=== PATIENT | female | born 1955 | race Caucasian/White ===

== ENCOUNTER → 2018-05-01 14:58 | Outpatient (CLI) | payer OTHER, SELFPAY ==
[2018-05-01 17:35] LABS: Absolute Lymphocyte Count 1.85 X10^3/ul (0.83-4.51); Absolute Neutrophil Count 4.6 X10^3/uL (2.0-7.7); Basophil# 0.02 X10^3/uL; Basophil% 0.3 % (0-1); Eosinophil# 0.14 X10^3/uL; Eosinophils% 1.9 % (0-5); Hematocrit 39.4 % (37-47); Hemoglobin 12.9 g/dl (12.0-15.0); Lymphocyte # 1.85 X10^3/ul (4.0); Lymphocyte % 24.8 % (19-41); Mean Corp Hgb Conc 32.7 g/gl (32-36); Mean Corpuscular Volume 88.5 fL (81-99); Mean Platelet Vol. 9.7 fl (6.2-12.0); Monocyte# 0.81 X10^3/uL; Monocyte% 10.9 % (0-10); Neutrophil # 4.62 X10^3/uL (2.7-7.7); Neutrophil % 61.8 % (47-70); Platelet Count 274 K/mm3 (150-450); RBC Distribution Width SD 48.2 fl (35.1-43.9); Red Blood Count 4.45 M/mm3 (4.2-5.4); White Blood Count 7.5 K/mm3 (4.4-11.0)
[2018-05-01 17:38] LABS: POSITIVE COUNT NO; POSITIVE DIFFERENTIAL NO; POSITIVE MORPHOLOGY NO
[2018-05-01 17:43] LABS: ALB/GLOB Ratio 0.7 RATIO (0.9-2.4); AST(SGOT) 14 U/L (15-37); Alanine Aminotransfer ALT/SGPT 22 U/L (13-56); Albumin, Serum 3.2 g/dL (3.2-5.0); Alkaline Phosphatase 110 U/L (45-117); Anion Gap 9 (5-15); BUN 18 mg/dL (7-18); BUN/Creat Ratio 17.5 RATIO (10-20); Calcium,Total 8.6 mg/dL (8.5-10.1); Chloride 105 mmol/L (98-107); Creatinine, Serum 1.03 mg/dL (0.55-1.02); EST Glomerular Filtration Rate 57 mL/min (>60); Est Glom Filt Rate - Afr Amer 69 mL/min (>60); Globulin 4.3 g/dL (2.2-4.2); Glucose 101 mg/dL (74-106); Potassium 3.6 mmol/L (3.5-5.1); Protein, Total 7.5 g/dL (6.4-8.2); Rheumatoid Factor < 10.0 IU/mL (<15); Sodium Level 142 mmol/L (136-145)
[2018-05-01 17:55] LABS: Erythrocyte Sedimentation Rate 65 mm/hr (0-30)
[2018-05-05 20:06] LABS: QNTFERON TB Mitogen Value > 10.00 IU/mL (.); QNTFERON TB Nil Value 0.06 IU/mL (.); QNTFERON TB1+ Ag Value 0.07 IU/mL (.); QNTFERON TB2+ Ag Value 0.09 IU/mL (.)
[2018-05-06 10:38] LABS: CCP IgG Antibodies 17 units (0-19); HEPATITIS B SURFACE AG Negative (Negative); Hep B Surface Antibodies Non Reactive (.); Hep C Antibodies <0.1 s/co ratio (0.0-0.9); QNTIFERON TB Positive Criteria Negative (Negative)
== END ==
PROVIDERS: Family Provider Internal Medicine Infectious Disease; PCP Internal Medicine Infectious Disease; Referring Provider Internal Medicine Rheumatology; Visit Provider Internal Medicine Rheumatology
DX: M05.79 Rheumatoid arthritis with rheumatoid factor of multiple sites without organ or systems involvement (principal); M79.7 Fibromyalgia; M18.11 Unilateral primary osteoarthritis of first carpometacarpal joint, right hand; M51.86 Other intervertebral disc disorders, lumbar region; M15.9 Polyosteoarthritis, unspecified
CPT/HCPCS: 36415; 80053; 85025; 85652; 86140; 86200; 86431; 86480; 86706; 86803; 87340

== ENCOUNTER 2024-08-26 08:42 | Emergency (ER) | payer OTHER, SELFPAY ==
[2024-08-26] VITALS (7 sets, daily range): BP systolic 141–170; BP diastolic 71–89; PULSE 72–81; RESP 18; TEMP 36.6–36.8; O2SAT 95–100; BMI 43.6
--- NOTE | 2024-08-26 09:06 | ED.VIS.GI ---
HPI HPI - GI History of Present Illness Chief Complaint: Abd Pain Informant: patient and spouse/S.O. Narrative Narrative: Increasing rectal bleed since 8 PM yesterday reports clots. She has had a total fibroblast time prior to arrival. She is on Eliquis reported had pulmonary embolism January 2023. Denies any cardiac dysrhythmia as denies other previous blood clots. Reports she has been having left lower quadrant abdominal pain since Friday resolved on Friday 2 days ago however blood in stools started yesterday. Her last dose of Eliquis was yesterday at noon. She forgot her morning dose and did not take her nighttime dose. None taken this morning. She has had multiple diverticulitis bouts in the past last time was earlier this year. She states she does not tolerate Augmentin. No fevers or chills. No urinary symptoms. History of cholecystectomy and oophorectomy in the past. Reports feels like her diverticulitis. Last flare earlier this year however did not have blood in her stools. Additional past med history minimal ambulation more so uses a wheelchair as she has had back injury in 2008. There were no fractures from the incident. Prior similar symptoms: Yes PFSH PFSH Medical History Ureterolithiasis Acute saddle pulmonary embolism Diverticulitis Neuropathy Substernal chest pain Mass of left lower extremity Hypertension Type 2 diabetes mellitus Home Medications ?Medication ?Instructions ?Recorded ?Last Taken ?Type apixaban 5 mg tablet (Eliquis) 5 mg PO BID 06/30/24 08/25/24 History furosemide 20 mg tablet 20 mg PO DAILY 07/07/24 08/25/24 History glipizide 5 mg tablet 5 mg PO DAILY 07/07/24 08/26/24 History cefdinir 300 mg capsule 300 mg PO Q12H #14 caps 08/26/24 Unknown Rx losartan 50 mg tablet 50 mg PO DAILY 08/26/24 08/26/24 History metronidazole 500 mg tablet 500 mg PO TID #20 tabs 08/26/24 Unknown Rx Allergy/AdvReac Type Severity Reaction Status Date / Time NOE Inhibitors AdvReac Other Verified 08/26/24 08:44 Beta-Adrenergic Agents AdvReac Other Verified 08/26/24 08:44 Family History Father Heart disease Hx of CABG Surgical History History of spinal fusion History of arthroscopic knee surgery History of shoulder surgery H/O unilateral oophorectomy History of carpal tunnel surgery History of cholecystectomy Social History Smoking Status: Never smoker alcohol intake: never substance use type: does not use caffeine: Yes ROS ROS ED Constitutional Constitutional ED: Denies chills, fever(s) or sweats ENT ENT ED: Denies sore throat Cardiovascular Cardiovascular: Denies chest pain, leg edema, palpitations or racing heartbeat Respiratory/Chest Respiratory/Chest: Denies cough, dyspnea or dyspnea on exertion Gastrointestinal Gastrointestinal: Reports abdominal pain and other Details: bright red blood per rectum ; Denies diarrhea, nausea or vomiting Genitourinary Genitourinary ED: Denies dysuria, hematuria or urinary frequency Musculoskeletal Musculoskeletal: Denies back pain, extremity pain or neck pain Integumentary Denies rash or wounds Neurologic Neurologic: Denies headache(s), paresthesias or weakness EXAM Physical Exam Const Vital Signs: 08/26/24 08:43 08/26/24 10:57 08/26/24 11:03 Temperature 97.8 F 98.1 F Temperature Source Oral Pulse Rate 81 72 Respiratory Rate 18 18 Blood Pressure 151/89 H 141/84 H 141/84 H Blood Pressure Mean 109 103 103 Pulse Ox 99 100 Oxygen Delivery Method Room Air 08/26/24 11:06 08/26/24 12:00 08/26/24 12:04 Temperature 98.1 F 98.2 F Temperature Source Oral Oral Pulse Rate 72 72 74 Respiratory Rate 18 18 18 Blood Pressure 141/84 H 170/81 H 170/81 H Blood Pressure Mean 103 110 110 Pulse Ox 100 95 96 Oxygen Delivery Method Room Air Room Air 08/26/24 13:00 Temperature 98 F Temperature Source Pulse Rate 78 Respiratory Rate 18 Blood Pressure 154/71 H Blood Pressure Mean 98 Pulse Ox 99 Oxygen Delivery Method Positive well nourished and well developed General Appearance ED: well developed and NAD HEENT Reports moist mucous membranes normocephalic and atraumatic Eyes General Eye ED: Yes normal appearance of both eyes; Negative for pale conjunctiva Neck full ROM Chest Wall Chest: Negative for tenderness Resp normal respiratory effort and normal air movement Effort and Inspection: symmetric chest movement; Negative for respiratory distress Cardio regular rate, regular rhythm and no murmurs Peripheral Pulses: pulses 2+ throughout GI normal to inspection, nondistended, normoactive bowel sounds GI Narrative: Left lower quadrant tenderness no guarding. No rebound. Palpation: Negative for guarding or rebound tenderness present Extremity normal to inspection General Extremety ED: Negative for edema or tenderness General Extremity: Negative for edema Neuro oriented x3 and no sensory deficits noted Sensorium / Orientation: awake and alert Skin no rashes or lesions noted and no wounds MDM MDM MDM Narrative Medical decision making narrative: Interventions / MDM: Differential diagnosis: Acute diverticulitis, rectal bleeding, chronic anticoagulant, history of pulmonary embolism Diagnosis considered but do not suspect: Complicated diverticulitis however CT without complications. My EKG interpretation: N/A Imaging independently reviewed and interpreted by myself: CT abdomen pelvis IV contrast: Mild diverticulitis left lower quadrant. No abscess no perforation. External documents reviewed: N/A Test considered but not ordered:N/A ED course: Rectal bleeding on Eliquis. Left lower quadrant abdominal pain started Friday resolving however does have tenderness on my exam. History of diverticulitis. IV established for labs she declines any pain medicines. CT abdomen pelvis for further evaluation. IV fluids started. 0940: Hemoglobin 12.1. White count 9.4. Creatinine 1.12. Potassium 3.1. 1030: CT scan with mild uncomplicated diverticulitis. She does not tolerate Augmentin, IV Rocephin and Flagyl ordered. No additional bleeding since prior to arrival. Patient's Collbran score is 15 on the Eliquis. I will speak with hospitalist service for evaluation. Further discussion with her pulmonary embolism event January 2023, this was an unprovoked event per patient and spouse. It was a saddle embolism from evaluation of records. She has been on treatment for 18 months now. Discussed the possibility of not needing anticoagulant as she has been fully treated. This will be relayed to hospitalist service. I did discuss with Dr. Ruiz who did evaluate the patient in the ED and spoke with me. We discussed with her immobility likely led to her pulmonary embolism so she is higher risk specially with her saddle embolism. She would likely need continued long-term anticoagulants. She has not had any additional rectal bleeding. Evaluated patient. Plan of care is to recheck her H&H with expected to be lower however if not significant we will plan to hold her Eliquis for 96 hours. 1220: Repeat H&H 11 from 12 there has been no additional rectal bleeding. Diverticulitis without requiring pain control antibiotics were given. Vitals remained stable. Will discharge patient home with general surgery follow-up with recurrent diverticulitis. Will refer her to hematology for discussion if she needs to continue her anticoagulants. Discussed strict return precautions with the patient. All questions were answered. Re-evaluation: stable Disposition discussed with patient/family/significant other: Patient and spouse Case discussed with consulting clinician: Hospitalist This note was generated with [employer] dictation software. It may contain incorrect words, spelling, and punctuation that were not noted in checking the note before signing. Lab Data Attestation: I reviewed the patient's lab results. Labs: Laboratory Results - last 24 hr 08/26/24 08/26/24 08:53 11:10 WBC 9.4 RBC 4.39 Hgb 12.1 11.0 L Hct 37.2 33.1 L MCV 84.7 MCH 27.6 MCHC 32.5 RDW Std Deviation 42.3 RDW Coeff of Evelyn 13.8 Plt Count 310 MPV 10.6 Immature Gran % (Auto) 0.500 Neut % (Auto) 58.3 Lymph % (Auto) 26.9 [place] % (Auto) 10.0 Eos % (Auto) 3.9 Baso % (Auto) 0.4 Absolute Neuts (auto) 5.5 Absolute Lymphs (auto) 2.53 Nucleated RBC % 0 PT 16.4 H INR 1.3 APTT 30.0 Sodium 139 Potassium 3.1 L Chloride 101 Carbon Dioxide 23.0 Anion Gap 15 BUN 22 H Creatinine 1.12 Estim Creat Clear Calc 55.36 Est GFR (MDRD) Non-Af 53 L BUN/Creatinine Ratio 19.9 Glucose 109 H Calcium 9.4 Blood Type A POSITIVE Antibody Screen NEGATIVE Radiography Diagnostic Testing: Clinical Impression(s) from Imaging Studies Abdomen/Pelvis CT 08/26/24 09:45 IMPRESSION: Fatty infiltration of the liver. Status post cholecystectomy. Sigmoid diverticulosis and findings suggestive of mild diverticulitis. No fluid collection is seen. Reading Location: [id number] Discharge Plan Triage Chief Complaint: Abd Pain Other Complaint: GI Bleed ED Provider: Scot Raygoza Dx/Rx/DC Orders Clinical Impression: Bright red rectal bleeding, Chronic anticoagulation, Acute diverticulitis, Hx of pulmonary embolus Instructions: Diverticulitis Dc, ED Lower GI Bleeding (Stable) Prescriptions: New metronidazole 500 mg tablet 500 mg PO TID Qty: 20 0RF cefdinir 300 mg capsule 300 mg PO Q12H Qty: 14 0RF No Action Eliquis 5 mg tablet 5 mg PO BID furosemide 20 mg tablet 20 mg PO DAILY glipizide 5 mg tablet 5 mg PO DAILY losartan 50 mg tablet 50 mg PO DAILY Primary Care Provider: Ragini Nascimento Referrals: Alem Horne MD [Med Staff - Active Staff] - 1-2 Weeks Chata Feliz MD [Med Staff - Active Staff] - 1-2 Weeks Ragini Nascimento, [facility] [Primary Care Provider] - 1-2 Weeks Activity Restrictions/Additional Instructions: Your CT scan mild diverticulitis. Your hemoglobin 12.1 to 11. Discussed with hospital team. Plan of care is to hold your Eliquis for the next 4 days. Take and finish your antibiotics. Can restart your Eliquis after 4 days if your bleeding resolved. If you have increasing bleeding increasing pain or fevers, return to the ED for reevaluation. Follow-up with general surgery for your recurrent diverticulitis. Follow-up with heme/oncology to discuss your previous PE, immobilization if you should be continuing your long-term anticoagulant. Print Language: Maltese Disposition Disposition: Home, Self Care Discharge Date/Time: 08/26/24 13:02
[2024-08-26 09:12] LABS: Absolute Lymphocyte Count 2.53 X10^3/uL (0.83-4.51); Absolute Neutrophil Count 5.5 X10^3/uL (2.0-7.7); Basophil# 0.04 X10^3/uL; Basophil% 0.4 % (0-1); Eosinophil# 0.37 X10^3/uL; Eosinophils% 3.9 % (0-5); Hematocrit 37.2 % (37-47); Hemoglobin 12.1 g/dL (12.0-15.0); Lymphocyte # 2.53 X10^3/ul (0.83-4.51); Lymphocyte % 26.9 % (19-41); Mean Corp Hgb Conc 32.5 g/dL (32-36); Mean Corpuscular Hgb 27.6 pg (27.0-32.0); Mean Corpuscular Volume 84.7 fL (81-99); Mean Platelet Vol. 10.6 fl (6.2-12.0); Monocyte# 0.94 X10^3/uL; NRBC Flagged by Analyzer 0 % (0-5); Neutrophil # 5.49 X10^3/uL (2.7-7.7); Neutrophil % 58.3 % (47-70); Platelet Count 310 K/mm3 (150-450); RBC Distribution Width CV 13.8 % (11.6-14.6); RBC Distribution Width SD 42.3 fl (35.1-43.9); Red Blood Count 4.39 M/mm3 (4.2-5.4); White Blood Count 9.4 K/mm3 (4.4-11.0)
[2024-08-26] MEDS: 0.9% Normal Saline (1000mL) 1,000 ML 125 ML IV (09:12)
[2024-08-26 09:20] LABS: International Normalized Ratio 1.3; Prothrombin Time (Protime)PT. 16.4 SECONDS (11.7-14.9)
[2024-08-26 09:35] LABS: Anion Gap 15 (5-15); BUN 22 mg/dL (4-19); BUN/Creat Ratio 19.9 RATIO (10-20); Calcium,Total 9.4 mg/dL (7.6-11.0); Chloride 101 mmol/L (98-108); Creatinine, Serum 1.12 mg/dL (0.70-1.20); EST Glomerular Filtration Rate 53 (>60); Estimated Creatinine Clearance 55.36 ml/min (50-250); Glucose 109 mg/dL (70-99); Potassium 3.1 mmol/L (3.3-5.1); Sodium Level 139 mmol/L (133-145)
--- NOTE | 2024-08-26 09:45 | CT_ITS ---
PROCEDURE: ABDOMEN/PELVIS W IV CONT ONLY 08/26/2024 REASON FOR EXAM: LLQ PAIN, RECTAL BLEEDING TECHNIQUE: ABDOMEN/PELVIS W IV CONT ONLY Coronal and Sagittal reconstruction series were provided. CONTRAST: Isovue-300 VOLUME: 100 mL One or more dose reduction techniques were used (e.g., Automated exposure control, adjustment of the mA and/or kV according to patient size, use of iterative reconstruction technique. RADIATION DOSE SUMMARY: CTDlvol: 12.6 mGy DLP: 1352.08 mGycm COMPARISON: None FINDINGS: Lung bases: Lung bases are clear. Coronary artery calcification. Liver: Diffuse fatty infiltration. Gallbladder: Surgically absent. Spleen: Normal size. Pancreas: Normal size without evidence of mass surrounding inflammation or ductal dilation. Adrenals: Unremarkable Kidneys: Normal renal sizes. No hydronephrosis. Bladder: Unremarkable Reproductive Organs: Unremarkable Bowel: Colonic diverticulosis with mild inflammatory changes suggestive of possible early diverticulitis. Appendix: The appendix is not identified. There is no inflammatory process identified in the right lower quadrant to suggest appendicitis. Lymph nodes: No suspicious lymph node enlargement. Vasculature: Mild diffuse atherosclerotic calcifications are noted. Unremarkable Bones: Degenerative changes of the spine. Prior lumbar fusion. CT/Abdomen/Pelvis W IV Cont ONLY IMPRESSION: Fatty infiltration of the liver. Status post cholecystectomy. Sigmoid diverticulosis and findings suggestive of mild diverticulitis. No flui d collection is seen. Reading Location: [id number]
[2024-08-26] MEDS: Ceftriaxone 1 GM/50 ML BAG IV (10:55)
[2024-08-26 11:25] LABS: Hematocrit 33.1 % (37-47)
[2024-08-26] MEDS: metroNIDAZOLE 500 MG/100 ML BAG 100 MG IV (11:58)
[2024-08-26] MEDS: Potassium Chloride Oral Tablet 20 MEQ 40 MEQ PO (11:59)
--- NOTE | 2024-08-26 13:34 | PCM.CONS.GEN ---
Assessment & Plan Assessment/Plan (1) Acute diverticulitis: PLAN: Plan GI bleed secondary to diverticulosis and being on apixaban. Hemoglobin did drop but she is otherwise stable not having further bleeding. I feel is reasonable for the patient to be discharged home. I did discuss with the patient and her that this could happen with her not even be on anticoagulation but certainly anticoagulation made it worse. I feel it is reasonable for her to be restarted on anticoagulation but would wait 4 days before resuming that. Discussed in the future if she does have recurrent bleeding then there may need to be consideration about discontinuing the anticoagulation altogether and consider for an IVC filter. They both expressed understanding. Diverticulitis: Acute. Recommend continued antibiotics. History of saddle pulmonary embolism: Given that she had a large clot causing a saddle pulmonary embolism I do agree with lifelong anticoagulation. Though I do recommend also holding off for 96 hours after this event before resuming. HPI Consult Data Date of Consult: 08/26/24 HPI Narrative Reason for Consultation: Consult requested by Dr. Raygoza for GI bleed HPI Narrative: TANNER CUELLO, is a 69 F who presents with acute onset of gastrointestinal bleeding. Patient was passing blood and clots at home. By time she arrived here she had no further bleeding. She also had abdominal pain. Presented to the emergency room and was noted to have sigmoid diverticulosis and mild diverticulitis. Patient does take apixaban for history of saddle pulmonary embolism. Patient is wheelchair-bound and due to prior injury but does able to pivot and go short distances but primarily is wheelchair-bound. Has been on Eliquis for about 18 months. FOR[facility]LY [facility], [facility] Medical History Ureterolithiasis Acute saddle pulmonary embolism Diverticulitis Neuropathy Substernal chest pain Mass of left lower extremity Hypertension Type 2 diabetes mellitus Home Medications ?Medication ?Instructions ?Recorded ?Last Taken ?Type apixaban 5 mg tablet (Eliquis) 5 mg PO BID 06/30/24 08/25/24 History furosemide 20 mg tablet 20 mg PO DAILY 07/07/24 08/25/24 History glipizide 5 mg tablet 5 mg PO DAILY 07/07/24 08/26/24 History cefdinir 300 mg capsule 300 mg PO Q12H #14 caps 08/26/24 Unknown Rx losartan 50 mg tablet 50 mg PO DAILY 08/26/24 08/26/24 History metronidazole 500 mg tablet 500 mg PO TID #20 tabs 08/26/24 Unknown Rx Allergy/AdvReac Type Severity Reaction Status Date / Time NOE Inhibitors AdvReac Other Verified 08/26/24 08:44 Beta-Adrenergic Agents AdvReac Other Verified 08/26/24 08:44 Family History Father Heart disease Hx of CABG Surgical History History of spinal fusion History of arthroscopic knee surgery History of shoulder surgery H/O unilateral oophorectomy History of carpal tunnel surgery History of cholecystectomy Social History Smoking Status: Never smoker alcohol intake: never substance use type: does not use caffeine: Yes ROS ROS Narrative All review of systems were negative except as mentioned above in the history of present illness and the other review of systems. Physical Exam Const alert and no apparent distress Resp normal respiratory effort, no retractions, no use of accessory muscles and clear to auscultation bilaterally Cardio regular rate, regular rhythm, S1 normal heart sound and S2 normal heart sound GI normal to inspection, nondistended, normoactive bowel sounds, soft to palpation, non-tender and non-distended Extremity normal to inspection and full ROM Neuro Sensorium / Orientation: awake Psych affect normal Lab / Micro Data 08/26/24 11:10 08/26/24 08:53 Labs: Laboratory Results - last 24 hr 08/26/24 08:53: WBC 9.4, RBC 4.39, Hgb 12.1, Hct 37.2, MCV 84.7, MCH 27.6, MCHC 32.5, RDW Std Deviation 42.3, RDW Coeff of Evelyn 13.8, Plt Count 310, MPV 10.6, Immature Gran % (Auto) 0.500, Neut % (Auto) 58.3, Lymph % (Auto) 26.9, [place] % (Auto) 10.0, Eos % (Auto) 3.9, Baso % (Auto) 0.4, Absolute Neuts (auto) 5.5, Absolute Lymphs (auto) 2.53, Nucleated RBC % 0, PT 16.4 H, INR 1.3, APTT 30.0, Sodium 139, Potassium 3.1 L, Chloride 101, Carbon Dioxide 23.0, Anion Gap 15, BUN 22 H, Creatinine 1.12, Estim Creat Clear Calc 55.36, Est GFR (MDRD) Non-Af 53 L, BUN/Creatinine Ratio 19.9, Glucose 109 H, Calcium 9.4, Blood Type A POSITIVE, Antibody Screen NEGATIVE 08/26/24 11:10: Hgb 11.0 L, Hct 33.1 L Imaging Radiology Impression Abdomen/Pelvis CT 08/26/24 09:45 IMPRESSION: Fatty infiltration of the liver. Status post cholecystectomy. Sigmoid diverticulosis and findings suggestive of mild diverticulitis. No fluid collection is seen. Reading Location: [id number] Charges/Coding Visit Charges Office Visits / Consults: 12650 OV L3 New 30min
--- OUTSIDE RECORDS SUMMARY | 2024-08-26 19:50 | XMS RPT_ITS | CCD ---
Author Organization [facility] Care Team Providers Care Director Of National Sales Name Role Phone Alexy Hammondsricci Snyder Unavailable Unavailable KIANA GRIFFITH Primary Care Unavailable BUCK VEE Admitting Unavailable PADMINI PARSONS Attending Unavailable Clarissa SAAVEDRA MD Unavailable [phone] AICHA GILLIS Unavailable [place] CUSTODY OFFICER, Saige Unavailable Unavailable Unavailable Unavailable LICHA WYMAN RN Unavailable Unavailable Christopher REECE, Doreen Unavailable Unavailable Danielle Garcia LPN Unavailable Unavailable ADENIKE MCGUIRE MD Unavailable ADENIKE MCGUIRE MD Unavailable AICHA GILLIS Unavailable Unav ailable DUMANDAN, ALEIDA Unavailable Unavailable Mary Peña Unavailable Unavailable WILL DEY DO Attending Unavailable WILL DEY DO Primary Care Unavailable WILL DEY DO Admitting Unavailable ADENIKE MCGUIRE MD Attending Unavailable ADENIKE MCGUIRE MD Consulting Unavailable ADENIKE MCGUIRE MD Primary Care Unavailable ADENIKE MCGUIRE MD Admitting Unavailable PROVIDER, UNKNOWN Consulting Unavailable PROVIDER, UNKNOWN Consulting Unavailable ADENIKE MCGUIRE MD Attending Unavailable ADENIKE MCGUIRE MD Primary Care Unavailable ADENIKE MCGUIRE MD Admitting Unavailable ADENIKE MCGUIRE MD Attending Unavailable ADENIKE MCGUIRE MD Primary Care Unavailable ADENIKE MCGUIRE MD Admitting Unavailable ADENIKE MCGUIRE MD Attending Unavailable ADENIKE MCGUIRE MD Primary Care Unavailable ADENIKE MCGUIRE MD Admitting Unavailable ADENIKE MCGUIRE MD Referring Unavailable ADENIKE MCGUIRE MD Consulting Unavailable WILL DEY DO Admitting Unavailable WILL DEY DO Attending Unavailable WILL DEY DO Primary Care Unavailable PROVIDER, UNKNOWN Consulting Unavailable PROVIDER, UNKNOWN Consulting Unavailable RAGINI WILCOX Unavailable [phone] Ramiro Dave Attending Unavailable Laron Mora Referring Unavailable Laron Mora Primary Care Unavailable Abby BLUNT, Dr. Larry Primary Care Provider Dr. Laron Mora MD Referring Provider Dr. Ramiro Dave MD Attending Provider Pily CLOTH DESIZING RANGE OPERATOR CHIEF-CRagini Primary Care Provider Dr. Scot Raygoza DO Emergency Provider [phone] Allergies Allergy Classification Reported Allergen(s) Allergy Type Date of Onset Reaction(s) Facility (20 sources) Adrenergic Beta-Antagonist s; Translations: [BETA-BLOCKERS (BETA-ADRENERGI C BLOCKING AGTS)] Propensity to adverse reactions to drug (disorder) 3 Chest pain, Dizziness, Shortness of breath [facility] Repository (20 sources) Angiotensin Converting Enzyme (Noe) Inhibitors; Translations: [NOE INHIBITORS] Propensity to adverse reactions to drug (disorder) 3 Cough, Other [facility] Repository Comment on above: cough (1 source) Metoprolol Drug Allergy [facility] Repository (1 source) Beta-Adrenergic Agents Drug allergy (disorder) [address] [facility] Repository (1 source) Adrenergic Beta-Agonists Propensity to adverse reactions 5 [facility] Comment on above: chest pain, dizzines s, shortness of breath Medications Current Medications Medication Drug Class(es) Dates Sig (Normalized) Sig (Original) apixaban 5 mg oral tablet (20 sources) Factor Xa Inhibitor Start: 02-23-2024 take 1 tablet by mouth twice daily Apixaban (Eliquis) 5 mg tablet Active 5 mg PO TWICE A DAY June 30, 2024 12:00am Start: 03-14-2023 Eliquis 5 mg t ablet ; 1 tablet two times daily for 90 days Quantity: 180 {Tablet} Refills: 3 Ordered: 14-Mar-2023 ILAN VANEGAS Start: 14-Mar-2023 Comments: Pharmacist: Do not fill - rx for patient assistance Start: 03-10-2023 Eliquis 5 mg t ablet ; 1 tablet two times daily for 90 days Quantity: 180 {Tablet} Refills: 3 Ordered: 10-Mar-2023 ILAN VANEGAS Start: 10-Mar-2023 Comments: Pharmacist: Do not fill - rx for patient assistance Comment on above: Pharmacist: Do not f ill - rx for patient assistance cefdinir 300 mg oral capsule (1 source) Cephalosporin Antibacterial Start: 5 take 1 capsule by mouth every twelve hours Cefdinir 300 mg capsule Active 300 mg PO Q12H August 26, 2024 12:00am furosemide 20 mg oral tablet (7 sources) Loop Diuretic Start: 5 Lasix 20 mg tablet ; 1 (one) tablet po daily x2 weeks for 30 days Quantity: 30 {Tablet} Refills: 5 Ordered: 14-Jul-2024 ILAN HIDALGO Start: 14-Jul-2024 glipiZIDE 5 mg oral tablet (7 sources) Sulfonylurea Start: 5 take 1 tablet by mouth once daily Glipizide 5 mg tablet Active 5 mg PO DAILY July 07, 2024 12:00am losartan potassium 50 mg oral tablet (20 sources) Angiotensin 2 Receptor Josephine Start: 5 End: 5 take 1 tablet by mouth once daily Losartan 50 mg tablet Active 50 mg PO DAILY August 26, 2024 12:00am Start: 04-20-2024 End: 06-07-2024 losartan 50 mg tablet ; 1 Ta blet daily for 30 days Quantity: 30 {Tablet} Refills: 3 Ordered: 07-Jun-2024 MD ADENIKE MCGUIRE Start: 20-Apr-2024 End: 07-Jun-2024 Status: Discontinued metroNIDAZOLE 500 mg oral tablet (20 sources) Nitroimidazole Antimicrobial Start: 07-07-2024 End: 08-26-2024 take 1 tablet by mouth three times daily Metronidazole 500 mg tablet Active 500 mg PO THREE TIMES A DAY August 26, 2024 12:00am Start: 06-28-2024 End: 07-05-2024 metroNIDAZOLE 500 mg tablet ; 1 (one) tablet three times daily for 7 days Quantity: 21 {Tablet} Refills: 0 Ordered: 28-Jun-2024 ILAN HIDALGO Start: 28-Jun-2024 End: 05-Jul-2024 Status: Inactive Start: 01-13-2023 End: 02-14-2023 metroNIDAZOLE 500 mg tablet ; 1 (one) tablet three times daily for 7 days Quantity: 21 {Tablet} Refills: 0 Ordered: 13-Jan-2023 ILAN VANEGAS Start: 13-Jan-2023 End: 20-Jan-2023 Status: Inactive Completed/Discontinued Medications Medication Drug Class(es) Dates Sig (Normalized) Sig (Original) amLODIPine 5 mg oral tablet (20 sources) Dihydropyridine Calcium Channel Josephine Start: 06-30-2024 End: 07-07-2024 take 1 tablet by mouth once daily Amlodipine 5 mg tablet Discontinued 5 mg PO daily June 30, 2024 12:00am July 07, 2024 11:06am Start: 06-07-2024 amLODIPine 10 mg tablet ; 1 Tablet daily for 30 days Quantity: 30 {Tablet} Refills: 2 Ordered: 28-Jun-2024 TELLO Garcia Start: 07-Jun-2024 Start: 04-20-2024 End: 06-07-2024 amLODIPine 5 mg tablet ; 1 T ablet daily for 30 days Quantity: 30 {Tablet} Refills: 3 Ordered: 07-Jun-2024 MD ADENIKE MCGUIRE Start: 20-Apr-2024 End: 07-Jun-2024 Status: Discontinued Start: 10-22-2023 End: 04-20-2024 amLODIPine 10 mg tablet ; 1 tablet daily for 90 days Quantity: 90 {Tablet} Refills: 3 Ordered: 20-Apr-2024 MD ADENIKE MCGUIRE Start: 22-Oct-2023 End: 20-Apr-2024 Status: Discontinued amLODIPine 10 mg tablet ; 1 daily (10 mg) amoxicillin 875 mg / clavulanate 125 mg oral tablet (20 sources) Penicillin-class Antibacterial Augmentin 875 mg-125 mg tablet ; 1 two times daily (875-125 mg) Status: Inactive Comments: ER Comment on above: ER azithromycin 250 mg oral tablet (20 sources) Macrolide Antimicrobial Start: 03-10-2023 End: 03-15-2023 azithromycin 250 mg tablet ; 2 (two) Tablets on day one then 1 daily for 4 days for 5 days Quantity: 6 {Tablet} Refills: 0 Ordered: 17-Mar-2023 ILAN VANEGAS Start: 10-Mar-2023 End: 15-Mar-2023 Status: Inactive Comments: medication to be dispensed in office Comment on above: medication to be dis pensed in office ciprofloxacin 500 mg oral tablet (20 sources) Quinolone Antimicrobial Start: 06-28-2024 End: 07-05-2024 ciprofloxacin 500 mg tablet ; 1 (one) tablet two times daily for 7 days Quantity: 14 {Tablet} Refills: 0 Ordered: 28-Jun-2024 ILAN HIDALGO Start: 28-Jun-2024 End: 05-Jul-2024 Status: Inactive Start: 01-13-2023 End: 02-14-2023 ciprofloxacin 500 mg tablet ; 1 (one) tablet two times daily for 7 days Quantity: 14 {Tablet} Refills: 0 Ordered: 13-Jan-2023 ILAN VANEGAS Start: 13-Jan-2023 End: 20-Jan-2023 Status: Inactive empagliflozin 10 mg oral tablet (1 source) Sodium-Glucose Cotransporter 2 Inhibitor Start: 07-07-2024 End: 07-07-2024 take 1 tablet by mouth once daily in the morning Empagliflozin (Jardiance) 10 mg tablet Discontinued 10 mg PO EVERY MORNING July 07, 2024 12:00am July 07, 2024 2:37pm gabapentin 100 mg oral capsule (20 sources) Anti-epileptic Agent Start: 10-22-2023 End: 11-21-2023 take 1 capsule by mouth at bedtime gabapentin 100 mg capsule ; 1 (one) capsule at bedtime for 30 days Quantity: 30 {Capsule} Refills: 0 Ordered: 18-Feb-2024 ILAN VANEGAS Start: 22-Oct-2023 End: 21-Nov-2023 Status: Inactive 24 hr metFORMIN hydrochloride 500 mg extended release oral tablet (14 sources) Biguanide Start: 05-10-2024 End: 08-26-2024 Metformin 500 mg tablet extended release 24 hr Discontinued 1000 mg PO daily June 30, 2024 12:00am August 26, 2024 9:29am traMADol hydrochloride 50 mg oral tablet (20 sources) Opioid Agonist traMADoL 50 mg tablet ; prn (50 mg) Status: Inactive Problems Active Problems Problem Classification Problem Date Documented Da te Episodic/Chronic Abdominal pain (2 sources) Unspecified abdominal pain; Translations: [Unspecified abdominal pain] Onset: Episodic Calculus of urinary tract (1 source) Calculus of ureter; Translations: [Calculus of ureter] Onset: Episodic Diabetes mellitus without complication (20 sources) Type 2 diabetes mellitus; Translations: [Type 2 diabetes mellitus without complications] Onset: 5 04-20-2024 Chronic Comment on above: Current tx: Past tx: A1c: 10/2023 7.5 new diagnosisACE: Statin: UM/C: Current tx: Past tx: A1c: 10/2023 7.5 new diagnosis, 05/2024 8.6ACE: Statin: UM/C: Diverticulosis and diverticulitis (20 sources) Diverticulitis; Translations: [Diverticulitis of intestine, part unspecified, without perforation or abscess without bleeding] 02-14-2023 Chronic Essential hypertension (20 sources) Benign hypertension; Translations: [Essential (primary) hypertension] Onset: 5 10-22-2023 Chronic Gastrointestinal hemorrhage (1 source) Gastrointestinal hemorrhage; Translations: [Hemorrhage of anus and rectum] 08-26-2024 Episodic Genitourinary symptoms and ill-defined conditions (12 sources) Dysuria; Translations: [Dysuria] 06-28-2024 Episodic Mycoses (20 sources) Mycosis; Translations: [Candidiasis, unspecified] 02-14-2023 Episodic Nonspecific chest pain (20 sources) Retrosternal pain ; Translations: [Precordial pain] 04-20-2024 Episodic Other aftercare (20 sources) Follow-up status; Translations: [Encounter for follow-up examination after completed treatment for conditions other than malignant neoplasm] 01-13-2023 Episodic Other aftercare (20 sources) Patient encounter status; Translations: [Encounter for follow-up examination after completed treatment for conditions other than malignant neoplasm] 03-10-2023 Episodic Other aftercare (1 source) [facility] (current) use of anticoagulants; Translations: [[facility] (current) use of anticoagulants] Onset: Episodic Other aftercare (1 source) Long-term current use of anticoagulant; Translations: [[facility] (current) use of anticoagulants] 08-26-2024 Episodic Other lower respiratory disease (1 source) Hypoxemia; Translations: [Hypoxia] Onset: 3 Episodic Other nervous system disorders (20 sources) Neuropathy; Translations: [Polyneuropathy, unspecified] 10-22-2023 Chronic Other screening for suspected conditions (not mental disorders or infectious disease) (3 sources) Abnormal electrocardiogram [ECG] [EKG]; Translations: [Electrocardiogram abnormal] Onset: 5 07-07-2024 Episodic Other skin disorders (20 sources) Localized swelling of left lower limb; Translations: [Localized swelling, mass and lump, left lower limb] 02-23-2024 Episodic Other skin disorders (20 sources) Mass of lower limb; Translations: [Localized swelling, mass and lump, left lower limb] 04-20-2024 Episodic Other skin disorders (3 sources) Localized swelling, mass and lump, left lower limb; Translations: [Localized swelling, mass and lump, left lower limb] Onset: 5 Episodic Pneumonia (except that caused by tuberculosis or sexually transmitted disease) (20 sources) Infective pneumonia; Translations: [Pneumonia, unspecified organism] 03-10-2023 Episodic Pulmonary heart disease (20 sources) Saddle embolus of pulmonary artery; 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] Onset: 4 03-10-2023 Chronic Comment on above: 01/2023 hospitalizat ion Pulmonary heart disease (3 sources) Other pulmonary embolism without acute cor pulmonale; Translations: [Personal history of pulmonary embolism] Onset: 3 08-26-2024 Episodic Residual codes; unclassified (1 source) Acquired absence of other specified parts of digestive tract; Translations: [Acquired absence of other specified parts of digestive tract] Onset: 5 Episodic Residual codes; unclassified (1 source) Acquired absence of other genital organ(s); Translations: [Acquired absence of other genital organ(s)] Onset: 5 Episodic Residual codes; unclassified (15 sources) Bilateral lower limb edema; Translations: [Localized edema] 06-28-2024 Episodic Residual codes; unclassified (1 source) Localized edema; Translations: [Localized edema] Onset: 5 Episodic Residual codes; unclassified (2 sources) Edema of lower extremity; Translations: [Localized edema] 07-07-2024 Episodic Respiratory failure; insufficiency; arrest (adult) (20 sources) Acute respiratory failure; Translations: [Acute respiratory failure with hypoxia] 03-10-2023 Episodic Unclassified (1 source) Unknown / UNK(Unknown) Onset: 8 Unclassified (15 sources) LAB DRAW - The labs drawn today include: BMP and Hgb A1C. The lab was ordered by Dr. Mcguire. 05-03-2024 Urinary tract infections (13 sources) Cystitis, unspecified with hematuria; Translations: [Urinary tract infectious disease] Onset: 5 06-28-2024 Episodic Past or Other Problems Problem Classification Problem Date Documented Date Episodic/Chronic Headache; including migraine (20 sources) Headache; including migraine 10-22-2023 Unclassified (1 source) PT STATES DIVERTICULITS FLARE Onset: 07-20-2017 Unclassified (20 sources) Diverticulitis - The last clinic visit was 4 week(s) ago. Symptoms include abdominal pain. Note for Diverticulitis: rash in groin area that is itchy. 02-14-2023 Unclassified (10 sources) New patient - To get established 01-13-2023 Unclassified (20 sources) [ADDITIONAL REASON] Diverticulitis - Symptoms include abdominal pain, abdominal bloating and abdominal cramping, while symptoms do not include fever, chills, nausea, vomiting, diarrhea or constipation. Pain is located in the left upper quadrant. The pain radiates to the chest and back (when it gets bad enough). Associated symptoms include weight loss (14 lbs since week ago Friday), while associated symptoms do not include weakness, dysuria or urinary frequency. Current treatment includes antibiotics. Note for Diverticulitis: trys to eat then she's miserable. On a liquid diet and not helping 01-13-2023 Unclassified (20 sources) [ADDITIONAL REASON] New patient - To get established 01-13-2023 Unclassified (20 sources) Transition into care - The patient is transitioning into care from a hospital ([facility] 02/27/23 - 03/03/23) and a summary of care was reviewed. 03-10-2023 Unclassified (20 sources) [ADDITIONAL REASON] Pulmonary Embolism - Symptoms include shortness of breath, cough, fever and back pain, while symptoms do not include chest pain. 03-10-2023 Unclassified (20 sources) [ADDITIONAL REASON] Cough - The cough is characterized as moist (nonproductive). The symptoms are aggravated by supine posture. 03-10-2023 Unclassified (12 sources) Cough - The cough is characterized as moist (nonproductive). The symptoms are aggravated by supine posture. 03-10-2023 Unclassified (13 sources) [ADDITIONAL REASON] Transition into care - The patient is transitioning into care from a hospital ([facility] 02/27/23 - 03/03/23) and a summary of care was reviewed. 03-10-2023 Unclassified (19 sources) [ADDITIONAL REASON] Foot pain - The foot pain has been occurring for 1 year. The pain affects both feet. The symptoms have been associated with burning sensation and swelling. Note for Foot pain: Pt states also numbness, tingling. Pt states Unbearable 10-22-2023 Unclassified (20 sources) !Patient notification of lab results - ILAN Mckenna. The test(s) that you had done were/was an A1C (three month sugar average) and blood work. Your tests were not to goal You should call our office for a new prescription and if you have any questions. Please follow up as scheduled. Note for !Patient notification of lab results : Your blood work showed that you are diabetic. We need to start medication for this. This may help with the tingling in your feet. Please call if you are willing to take something. Thanks! 10-23-2023 Unclassified (10 sources) Foot pain - The foot pain has been occurring for 1 year. The pain affects both feet. The symptoms have been associated with burning sensation and swelling. Note for Foot pain: Pt states also numbness, tingling. Pt states Unbearable 10-22-2023 Unclassified (20 sources) Cellulitis - Symptoms include pain (very painful), swelling, tenderness and warmth. Symptoms are located on the left leg (lower, inner doll). Onset was 1 week(s) ago. Note for Cellulitis: Pt has been trying to elevate legs. She is almost w/c bound, only takes few steps into bathroom 02-23-2024 Unclassified (20 sources) !Patient notification of lab results - Note for !Patient notification of lab results : Discussed with pt via phone negative result of nl DVT US and CT PE. States localized pain and swelling still present. Denies worsening erythema or fevers. Possible phlebitis and conservative treatment with a lower concern for cellulitis based on my previous exam and report of no worsening. Return precautions discussed. 03-09-2024 Unclassified (14 sources) HYPERTENSION - The symptoms have been associated with dyspnea and edema (Sometimes goes down at night. Not all the time,), while the symptoms have not been associated with chest pain. Note for HYPERTENSION: On the , felt heartbeat beating really fast, felt like it was going to jump out of chest. [place] some chest discomfort from Friday until Friday, felt weak afterward. To put hair up had to rest 3 times. 04-20-2024 Unclassified (14 sources) [ADDITIONAL REASON] Ankle Pain - The activity began 2 week(s) ago. Symptoms include ankle pain, while symptoms do not include swelling, redness, warmth, instability, stiffness or decreased range of motion. Symptoms are located in the left ankle. There is no radiation. The patient describes the pain as burning. Note for Ankle pain: By left ankle, there was a clear drainage, it hurt, burning. Does not remember doing anything to it. Not red, no opening. Not swollen more than usual. Drained enough where sheet got wet at night. Not draining since last , started on . Did not wear socks. 04-20-2024 Unclassified (3 sources) Diverticulitis - Symptoms include abdominal pain, abdominal bloating and abdominal cramping, while symptoms do not include fever, chills, nausea, vomiting, diarrhea or constipation. Pain is located in the left upper quadrant. The pain radiates to the chest and back (when it gets bad enough). Associated symptoms include weight loss (14 lbs since week ago Friday), while associated symptoms do not include weakness, dysuria or urinary frequency. Current treatment includes antibiotics. Note for Diverticulitis: trys to eat then she's miserable. On a liquid diet and not helping 01-13-2023 Unclassified (4 sources) Ankle Pain - The activity began 2 week(s) ago. Symptoms include ankle pain, while symptoms do not include swelling, redness, warmth, instability, stiffness or decreased range of motion. Symptoms are located in the left ankle. There is no radiation. The patient describes the pain as burning. Note for Ankle pain: By left ankle, there was a clear drainage, it hurt, burning. Does not remember doing anything to it. Not red, no opening. Not swollen more than usual. Drained enough where sheet got wet at night. Not draining since last , started on . Did not wear socks. 04-20-2024 Unclassified (4 sources) [ADDITIONAL REASON] HYPERTENSION - The symptoms have been associated with dyspnea and edema (Sometimes goes down at night. Not all the time,), while the symptoms have not been associated with chest pain. Note for HYPERTENSION: On the , felt heartbeat beating really fast, felt like it was going to jump out of chest. [place] some chest discomfort from Friday until Friday, felt weak afterward. To put hair up had to rest 3 times. 04-20-2024 Unclassified (13 sources) !Patient notification of lab results - Dr. Mcguire. The test(s) that you had done were/was an A1C (three month sugar average) and a BMP (potassium, sodium, sugar, and kidney function). You should call our office if you have any questions. Note for !Patient notification of lab results : . The BMP is stable. The A1c (diabetes number )has gone up to 8.6. I recommend this to be at least below 8 or 7 to avoid future damage to the kidneys and eyes. I recommend starting with a sugar lowering medication called metformin and have sent this to the pharmacy. Most people do not have issues with it but one of the more common side effects is diarrhea so I have sent an extended release formulation of the medicine to help with this. Thank you, Dr. Mcguire 05-10-2024 Unclassified (12 sources) !Patient notification of lab results - Dr. Mcguire. The test(s) that you had done were/was an ultrasound exam. The results of your testing were stable for your medical condition . You should call our office if you have any questions. Note for !Patient notification of lab results : The ultrasound of the leg showed fluid swelling without any tumor or abscess. Unless this causes you pain I do not recommend any further evaluation or treatment. Thank you, Dr. Mcguire 05-13-2024 Unclassified (1 source) Pulmonary Embolism - Symptoms include shortness of breath, cough, fever and back pain, while symptoms do not include chest pain. 03-10-2023 Unclassified (6 sources) Edema - Symptoms include edema (Bilateral lower legs are blistered >3+ pitting edema around lower legs, ankles and feet-unable to get shoes on.-). The edema involves both lower extremities. Onset was 3 week(s) ago. Note for Edema: Pt is on an all liquid diet at this time due to diverticulitis. Pt was seen Apr 19 for same. Pt was started on Metformin on 05/10/24 06-28-2024 Unclassified (6 sources) [ADDITIONAL REASON] Urinary frequency - The urinary frequency has been occurring for 4 months. Note for Urinary frequency: Pt was in hospital end of March, beginning of April for UTI and Kidney stone. States she doesn't feel like she ever got over it-Burning and frequency now, fever Friday and Friday with emesis, But states it may be her diverticulitis Not sure 06-28-2024 Urinary tract infections (20 sources) Urinary tract infections 01-13-2023 Results Test Name Value Interpretation Reference Range Facility Absolute lymphocyte countOrd ered By: Scot Raygoza on 08-26-2024 Lymphocytes Auto (Unsp spec) [#/Vol] 2.53 10*3/uL 0.83-4.[address] [facility] Absolute neutrophil countOrd ered By: Scot Raygoza on 08-26-2024 Neutrophils (Bld) [#/Vol] 5.5 10*3/uL 2.0-7.[address] [facility] Activated partial thrombopla stin time (aPTT) in platelet poor plasma by coagulation aOrdered By: Scot Raygoza on 08-26-2024 aPTT Coag (PPP) [Time] 30.0 s 24.1-36.2 [facility] Anion gap in Serum or Plasma Ordered By: Scot Raygoza on 08-26-2024 Anion gap [Moles/Vol] 15 mmol/L 5-15 [facility] Automated lymphocyte count a s percentage of total leukocytesOrdered By: Scot Raygoza on 08-26-2024 Lymphocytes/100 WBC Auto (Unsp spec) 26.9 % 19-[address] [facility] BUN/creatinine ratioOrdered By: Scot Raygoza on 08-26-2024 Urea nitrogen/Creatinine [Mass ratio] 19.9 mg/mg 10-[address] [facility] Basophil percentageOrdered B y: Scot Le on 08-26-2024 Basophils/100 WBC (Bld) 0.4 % 0-1 [facility] Carbon dioxide, total [Moles /volume] in [place] venous bloodOrdered By: Scot Raygoza on 08-26-2024 CO2 [Moles/Vol] 23.0 mmol/L 21.0-32.[address] [facility] Chloride assayOrdered By: Tim Raygoza on 08-26-2024 Chloride [Moles/Vol] 101 mmol/L 98-108 [facility] Eosinophil percentageOrdered By: Scot Raygoza on 08-26-2024 Eosinophils/100 WBC (Bld) 3.9 % 0-[address] [facility] Erythrocyte distribution wid th ratioOrdered By: Scot Raygoza on 08-26-2024 Erythrocyte distribution width (RBC) [Ratio] 13.8 % 11.6-14.[address] [facility] Erythrocyte distribution wid th standard deviationOrdered By: Scot Raygoza on 08-26-2024 Erythrocyte distribution width (RBC) [Ratio] 42.3 fl 35.1-43.[address] [facility] Glomerular filtration rate ( GFR) estimation/1.73 sq m using serum, plasma, or whole bOrdered By: Scot Raygoza on 08-26-2024 GFR/1.73 sq M.predicted among non-blacks MDRD (S/P/Bld) [Vol rate/Area] 53 mL/min/{1.73_m2} Low >[address] [facility] Comment on above: mL/min/1.73m2 CKD-EP I Creatinine Equation (2020) Hematocrit Auto (Bld) [Volum e fraction]Ordered By: Scot Raygoza on 08-26-2024 Hematocrit (Bld) [Volume fraction] 33.1 % Low 37-[address] [facility] Hemoglobin measurementOrdere d By: Scot Raygoza on 08-26-2024 Hemoglobin (Bld) [Mass/Vol] 11.0 g/dL Low 12.0-15.[address] [facility] Immature granulocytes/100 WB C Auto (Bld)Ordered By: Scot Raygoza on 08-26-2024 Immature granulocytes/100 WBC (Bld) 0.500 % 0.0-0.[address] [facility] Comment on above: IG% - Immature Granu locytes (promyelocytes, myelocytes and metamyelocytes) > 1% indicates that a LEFT SHIFT is Present. International normalized rat io (INR) calculationOrdered By: Scot Raygoza on 08-26-2024 INR Coag (Bld) [Relative time] 1.3 {INR} [facility] MCV (mean corpuscular volume ) determinationOrdered By: Scot Raygoza on 08-26-2024 MCV (RBC) [Entitic vol] 84.7 fL 81-99 [facility] Mean corpuscular hemoglobin (MCH) determinationOrdered By: Scot Raygoza on 08-26-2024 MCH (RBC) [Entitic mass] 27.6 pg 27.0-32.[address] [facility] Mean corpuscular hemoglobin concentration (MCHC) determinationOrdered By: Scot Raygoza on 08-26-2024 MCHC (RBC) [Mass/Vol] 32.5 g/dL 32-36 [facility] Mean platelet volume determi nationOrdered By: Scot Raygoza on 08-26-2024 Platelet mean volume (Bld) [Entitic vol] 10.6 fL 6.2-12.[address] [facility] Monocyte percentageOrdered B y: Scot Raygoza on 08-26-2024 Monocytes/100 WBC (Bld) 10.0 % 0-10 [facility] Neutrophil percentageOrdered By: Scot Raygoza on 08-26-2024 Neutrophils/100 WBC (Bld) 58.3 % 47-[address] [facility] Nucleated red blood cell per centageOrdered By: Scot Raygoza on 08-26-2024 Nucleated RBC/100 WBC (Bld) [Ratio] 0 % 0-[address] [facility] Platelet countOrdered By: Tim Raygoza on 08-26-2024 Platelets (Bld) [#/Vol] 310 10*3/uL 150-[address] [facility] Potassium measurement (mass/ volume)Ordered By: Scot Raygoza on 08-26-2024 Potassium (Unsp spec) [Mass/Vol] 3.1 mmol/L Low 3.3-5.[address] [facility] Prothrombin timeOrdered By: Scot Raygoza on 08-26-2024 PT Coag (PPP) [Time] 16.4 s High 11.7-14.9 [facility] RBC Auto (Bld) [#/Vol]Ordere d By: Scot Raygoza on 08-26-2024 RBC (Bld) [#/Vol] 4.39 10*6/uL 4.2-5.4 [facility] Serum creatinine measurement (mass/volume)Ordered By: Scot Raygoza on 08-26-2024 Creatinine [Mass/Vol] 1.12 mg/dL 0.70-1.20 [facility] Serum glucose measurement (m ass/volume)Ordered By: Scot Raygoza on 08-26-2024 Glucose [Mass/Vol] 109 mg/dL High 70-99 [facility] Serum or plasma calcium simon urement (mass/volume)Ordered By: Scot Raygoza on 08-26-2024 Calcium [Mass/Vol] 9.4 mg/dL 7.6-11.0 [facility] Serum or plasma urea nitroge n measurement (mass/volume)Ordered By: Scot Raygoza on 08-26-2024 Urea nitrogen [Mass/Vol] 22 mg/dL High 4-[address] [facility] Sodium levelOrdered By: Scot Raygoza on 08-26-2024 Sodium [Moles/Vol] 139 mmol/L 133-145 [facility] White blood cell (WBC) count Ordered By: Scot Raygoza on 08-26-2024 WBC (Bld) [#/Vol] 9.4 10*3/uL 4.4-11.0 [facility] Cardiology Visit Reporton Cardiology Visit Report [facility] [address] [place], [place] [id number] OFFICE VISIT Date of Service: 07/07/24 MR#: [id number] Acct: [id number] Name: JEANETH CUELLO Burke Rep #: [id number] : 1955 Provider: Dr. Ramiro castillo MD Age/Sex: 69/F Location: [facility] [place] [place] Status: Signed HPI HPI History of Present Illness Details: Patient is a pleasant 69-year-old [facility] white female that comes in with 2 of her family members today. She is here for a new patient visit. She was referred by Dr. Hidalgo from [facility] for an abnormal ECG and chest pain. Upon presentation the patient denies having chest discomfort. She did have some chest pain back in January 2023 when she was diagnosed with a pulmonary embolus. She was treated at [facility] and has been on Eliquis since that point in time. Lower extremity vascular evaluation showed no evidence of DVTs. The patient has no recurrence. She actually was recently admitted in May 2024 for urinary issues at [facility]. 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 However I did find an old ECG from January 2023 that had identical same pattern. The patient has no prior history of an CA and she had an echocardiogram done after the original ECG in January 2023 that echo showed normal LV size with mild concentric LVH and a normal EF of 73%. She did have grade 1 diastolic dysfunction the right ventricle was mildly dilated and right ventricular systolic function was low normal. This was done at the time of her pulmonary embolus. The patient is now complaining of progressive lower extremity edema. She is on diuretic therapy and amlodipine. She has a history of occasional weeping blisters she is diabetic. The patient carries a history of hypertension and diabetes hemoglobin A1c runs around 8. The patient is wheelchair-bound since April 2023 due to a traumatic injury to her back. Blood pressures her home environment have run 106???130 8/64???78. Patient's blood pressure in office today was 168/94 she does report she consistently has whitecoat syndrome. She brought in several blood pressure from home environment as noted. 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 Accompanied by: Is patient in pain?: No Allergies NOE Inhibitors Adverse Reaction (Verified 07/07/24 10:43) Other Beta-Adrenergic Agents Adverse Reaction (Verified 07/07/24 10:43) Other Medications ???Medication ???Instructions ???Recorded ???Confirmed ???Type apixaban 5 mg tablet (Eliquis) 5 mg PO BID 06/30/24 07/07/24 Hist ory metformin 500 mg tablet,extended 1,000 mg PO QDAY 06/30/24 07/07/24 History release 24 hr empagliflozin 10 mg tablet 10 mg PO QAM #30 tabs 07/07/2409/24 Rx (Jardiance) furosemide 20 mg tablet 20 mg PO QDAY 07/07/24 07/07/24 Hi story glipizide 5 mg tablet 5 mg PO 07/07/24 07/07/24 History losartan 50 mg tablet 50 mg PO QDAY #30 tabs 07/07/24 Rx metronidazole 500 mg tablet 500 mg PO TID 07/07/24 07/07/24 Hi story Ejection fraction %: 73 Have you fallen in the past year?: No PFSH Medical History Ureterolithiasis Acute saddle pulmonary embolism Diverticulitis Neuropathy Substernal chest pain Mass of left lower extremity Hypertension Type 2 diabetes mellitus Surgical History History of spinal fusion History of arthroscopic knee surgery History of shoulder surgery H/O unilateral oophorectomy History of carpal tunnel surgery History of cholecystectomy Family History Father Heart disease Hx of CABG Social History Smoking Status: Never smoker alcohol intake: never substance use type: does not use caffeine: Yes ROS Const Const: Positive for fatigue; Negative for weakness ENT ENT: Positive for dizziness; Negative for balance problems Cardio Chest Pain: Yes Palpitations: Yes Edema: Bilateral Muscle aches with walking: None Resp Respiratory: Positive for SOB with activity and SOB at rest; Negative for SOB orthopnea SOB lying down GI GI: Positive for heartburn; Negative nausea or vomiting Musc Musc: Negative for muscle weakness or balance problems Neuro Neuro: Positive for dizziness and lightheadedness; Negat (more content not included)... Normal [facility] Laboratory - Chemistry and C hemistry - challengeon 06-28-2024 Bilirubin Ql (U) 1+ Abnormal [facility] Ketones Ql (U) Negative Normal [facility] pH (U) 6.0 [pH] Normal [facility] Specific gravity (U) [Rel density] 1.030 Abnormal [facility] Laboratory - Hematology and Cell countson 06-28-2024 Hemoglobin Ql (U) ++ Abnormal [facility], [facility].; [facility] Laboratory - Specimen inform ationon 06-28-2024 Appearance (U) CLOUDY Abnormal [facility] Color (U) VALENCIA Normal [facility], [facility].; [facility] Laboratory - Urinalysison Glucose Test strip (U) [Mass/Vol] Negative Normal [facility], [facility].; [facility] Leukocyte esterase Test strip Ql (U) 1+ Abnormal [facility] Nitrite Ql (U) Negative Normal [facility], [facility].; [facility] Protein Ql (U) 1+ Abnormal [facility] No Panel Informationon 06-28 UA - ODOR Positive Abnormal [facility], [facility].; [facility] UA - UROBILIGEN 0.2 Normal [facility], [facility].; [facility] C-REACTIVE PROTEINon 025 CRP 3.36 mg/dl High 0.00 - 0.90 [facility] Comment on above: Performed By: #### 2 [id number] #### [facility],[address] [place] [address] CBC + DIFFon 05-10-2024 Baso # 0.02 x10EE3/UL Normal 0.00 - 0.10 [facility] Comment on above: Performed By: #### 2 43156 #### [facility],[address] [place] [address] Basophils/100 WBC (Bld) 0.2 % Normal 0.0 - 2.0 % [facility], [facility].; [facility], [employer] Work Phone: Comment on above: Performed By: #### 2 60193 #### [facility],[address] [place] [address] CBC + DIFF Normal [facility] Comment on above: Result Comment: CBC- COMPLETE BLOOD COUNT Performed By: #### 2 98866 #### [facility],[address] [place] [address] EO # 0.09 x10EE3/UL Normal 0.00 - 0.50 [facility] Comment on above: Performed By: #### 2 32459 #### [facility],[address] [place] [address] Eosinophils/100 WBC (Bld) 1.0 % Normal 0.0 - 7.0 % [facility] Work Phone: Comment on above: Performed By: #### 2 64395 #### [facility],[address] [place], [place] [id number] Erythrocyte distribution width (RBC) [Ratio] 14.8 % Normal 12.0 - 15.6 % [facility] Work Phone: Comment on above: Performed By: #### 2 41485 #### [facility],[address] [place] [address] Hematocrit (Bld) [Volume fraction] 43.5 % Normal 34.0 - 46.0 % [facility].; [facility], [employer] Work Phone: Comment on above: Performed By: #### 2 66386 #### [place] [id number] Hemoglobin (Bld) [Mass/Vol] 14.6 g/dL Normal 12.0 - 16.0 g/dL [facility].; [facility], [employer] Work Phone: Comment on above: Performed By: #### 2 92156 #### [place] [address] Lymph # 1.29 x10EE3/UL Normal 0.80 - 2.80 [facility] Comment on above: Performed By: #### 2 47346 #### [address] [address] Lymphocytes/100 WBC (Bld) 13.7 % Abnormal 20.0 - 45.0 % [facility].; [facility] Work Phone: Comment on above: Performed By: #### 2 32916 #### [address] [address] MANUAL DIFF N/A Normal [facility].; [facility], [employer] Work Phone: Comment on above: Performed By: #### 2 90251 #### [address] [address] MCH (RBC) [Entitic mass] 28 pg Normal 27 - 33 pg [facility], [facility].; [facility], [employer] Work Phone: Comment on above: Performed By: #### 2 22040 #### [facility] [place],[address] [place] [address] MCHC 34 X10 3 Normal 32 - 36 [facility] Comment on above: Performed By: #### 2 28730 #### [facility] [place],[address] [place] [address] MCV (RBC) [Entitic vol] 85 fL Normal 80 - 99 fL [facility].; [facility], [facility] Work Phone: Comment on above: Performed By: #### 2 84853 #### [place] [address] [place] # 0.61 x10EE3/UL Normal 0.20 - 1.00 [facility] Comment on above: Performed By: #### 2 39117 #### [place] [address] MONOS % 6.5 % Normal 0.0 - 10.0 [facility] Comment on above: Performed By: #### 2 22740 #### [facility] [place],[address] [place] [address] Morphology Russell (Bld) [Interp] N/A Normal [facility].; [facility] Work Phone: Comment on above: Performed By: #### 2 37748 #### [place] [address] Neut # 7.41 x10EE3/UL High 1.50 - 7.10 [facility] Comment on above: Performed By: #### 2 55488 #### [place] [address] Neutrophils/100 WBC (Bld) 78.6 % Abnormal 46.0 - 76.0 % [facility].; [facility] Work Phone: Comment on above: Performed By: #### 2 74627 #### [facility] [place],[address] [place] [address] PLATELET 263 x10EE3/UL Normal 150 - 450 [facility] Comment on above: Performed By: #### 2 41717 #### [facility] [place],[address] [place] [address] Platelet mean volume (Bld) [Entitic vol] 7.9 fL Normal 6.6 - 10.5 fL [facility], [facility].; [facility] Work Phone: Comment on above: Result Comment: AUTO MATED DIFFERENTIAL Performed By: #### 2 99194 #### [facility] [place],[address] [place] [address] RBC 5.15 x 10EE6/UL Normal 4.10 - 5.30 [facility] Comment on above: Performed By: #### 2 92737 #### [facility],[address] [place] [address] WBC 9.4 x 10EE3/UL Normal 4.5 - 10.8 [facility] Comment on above: Performed By: #### 2 64003 #### [facility],[address] [place] [address] CMP with eGFRon 05-10-2024 AGE 68 years Normal [facility] Comment on above: Performed By: #### 2 44989 #### [facility],[address] [place] [address] Albumin [Mass/Vol] 3.1 g/dL Abnormal 3.4 - 5.0 g/dL [facility], [facility].; [facility], [employer] Work Phone: Comment on above: Performed By: #### 2 21144 #### [facility] [place],[address] [place] [address] Albumin/Globulin [Mass ratio] 0.6 {ratio} Low 0.9 - 1.6 [facility] Comment on above: Performed By: #### 2 23810 #### [facility],[address] [place] [address] ALK PHOS 93 U/L Normal 46 - 116 U/L [facility].; [facility], [employer] Work Phone: Comment on above: Performed By: #### 2 97990 #### [address] [address] ALT [Catalytic activity/Vol] 30 U/L Normal 16 - 63 U/L [facility].; [facility], [employer] Work Phone: Comment on above: Performed By: #### 2 01690 #### [address] [address] Anion gap [Moles/Vol] 12 mmol/L Normal 10 - 2 0 mmol/L [facility].; [facility], [employer] Work Phone: Comment on above: Performed By: #### 2 65770 #### [address] [address] AST [Catalytic activity/Vol] 43 U/L Abnormal 13 - 39 U/L [facility].; [facility], [employer] Work Phone: Comment on above: Performed By: #### 2 82348 #### [address] [address] B/C RATIO 17 ratio Normal 0 - 30 [facility] Comment on above: Performed By: #### 2 44058 #### [address] [address] Bilirubin [Mass/Vol] 0.4 mg/dL Normal 0.2 - 1 .0 mg/dL [facility], [facility].; [facility] [place] [employer] [facility], [employer] Work Phone: Comment on above: Performed By: #### 2 38087 #### [facility],[address] [place] [address] Calcium [Mass/Vol] 8.9 mg/dL Normal 8.5 - 10. 1 mg/dL [facility], [facility].; [facility] Work Phone: Comment on above: Performed By: #### 2 28906 #### [facility],[address] [place] [address] Chloride [Moles/Vol] 100 mmol/L Normal 98 - 10 7 mmol/L [facility], [facility].; [facility] Work Phone: Comment on above: Performed By: #### 2 40782 #### [facility],[address] [place] [address] [place] [address] CMP with eGFR Normal [facility] Comment on above: Result Comment: COMP REHENSIVE METABOLIC PANEL Performed By: #### 2 07689 #### [address] [address] CO2 [Moles/Vol] 30.0 mmol/L Normal 21.0 - 32.0 mmol/L [facility], [facility].; [facility] Work Phone: Comment on above: Performed By: #### 2 98882 #### [facility],[address] [place] [address] Creatinine [Mass/Vol] 1.09 mg/dL Abnormal 0.55 - 1.02 mg/dL [facility], [facility].; [facility] Work Phone: Comment on above: Performed By: #### 2 19889 #### [facility] [place],[address] [place] [address]287 eGFR 50 ML/MINUTE Low 60 - 999 [facility] Comment on above: Performed By: #### 2 06321 #### [facility],[address] [place] [address]487 eGFR(AA) 60 ML/MINUTE Normal 60 - 999 [facility] Comment on above: Result Comment: ACCO RDING TO THE NATIONAL KIDNEY DISEASE EDUCATION PROGRAM(NKDE), A NORMAL eGFR IS A VALUE GREATER THAN OR EQUAL TO 60 ML/MIN/1.73 SQ METERS. CHRONIC KIDNEY DISEASE: <60mL/MIN/1.73 SQ METERS KIDNEY FAILURE: <15mL/MIN/1.73 SQ METERS THIS TEST SHOULD ONLY BE USED FOR PATIENTS 18 YEARS OF AGE AND OLDER. Performed By: #### 2 15918 #### [address] [address] Globulin (S) [Mass/Vol] 4.8 g/dL Abnormal 1.5 - 3.8 g/dL [facility], [employer].; [facility], [employer] Work Phone: Comment on above: Performed By: #### 2 03136 #### [address] [address] Glucose [Mass/Vol] 225 mg/dL Abnormal 74 - 106 mg/dL [facility], [employer].; [facility] Work Phone: Comment on above: Performed By: #### 2 30283 #### [address] [address] Potassium [Moles/Vol] 3.7 mmol/L Normal 3.5 - 5.1 mmol/L [facility], [employer].; [facility], [employer] Work Phone: Comment on above: Performed By: #### 2 93530 #### [facility] [place],[address] [place] [address] Protein [Mass/Vol] 7.9 g/dL Normal 6.4 - 8.2 g/dL [facility]; [facility] Work Phone: Comment on above: Performed By: #### 2 19123 #### [address] [address] Sodium [Moles/Vol] 138 mmol/L Normal 136 - 145 mmol/L [facility]; [facility] Work Phone: Comment on above: Performed By: #### 2 79514 #### [address] [address] Urea nitrogen [Mass/Vol] 18 mg/dL Normal 7 - 18 mg/dL [facility]; [facility], [facility] Work Phone: Comment on above: Performed By: #### 2 22662 #### [facility],[address] [place] [address] ABDOMEN/PELVIS WO 05-10 CT ABDOMEN/PELVIS [address] [address] Patient: JEANETH CUELLO Phone#: : [phone] Age: 68 Gender: F Pt. Type: ER Account: [id number] Location: 2 Ordering: WILL DEY Exam Date: 05/10/2024/6:47 Family Phys: ADENIKE MCGUIRE Charge Code: 823201 Physician: [place] Order #: [id number] Dose#: 26.5 mGy PROCEDURE: CT ABDOMEN/PELVIS WITHOUT CONTRAST COMPARISON: [facility], CT, ABDOMEN/PELVIS W CON, 02/14/2023, 19:08. INDICATIONS: Abdominal pain. TECHNIQUE: CT images were created without intravenous contrast. All CT scans at this facility use dose modulation, iterative reconstruction, and/or weight based dosing when appropriate to reduce radiation dose to as low as reasonably achievable. IV CONTRAST: No IV contrast used,0ml TOTAL DOSE: 26.50 CTDIvol(mGy) FINDINGS: Evaluation of the solid organs and soft tissues is limited in the absence of intravenous contrast. LIVER: Liver is diffusely decreased in attenuation, consistent diffuse fatty infiltration of the liver. BILIARY: Gallbladder is absent, surgical clips are in the gallbladder fossa. PANCREAS: Unremarkable in contour SPLEEN: Unremarkable in contour KIDNEYS: There is right hydronephrosis and hydroureter to the level of the ureteral vesicular junction due to an obstructing stone. Stone measures 0.7 x 0.5 x 0.6 cm, series 2, image 127. No left hydronephrosis or hydroureter. No left nephrolithiasis ADRENALS: Normal. No mass or enlargement. AORTA/VASCULAR: No aortic aneurysm. There are scattered atherosclerotic calcifications of the aorta RETROPERITONEUM: Normal. No mass or adenopathy. BOWEL/MESENTERY: There is stool filled colon to the level of the distal descending/sigmoid colon where there is an abrupt narrowing and stricture. This segment of strictured colon measures 4.6 cm in length, series 2, image 116. The descending colon wall is mildly diffusely thickened. Appendix is not visualized. No small bowel obstruction or dilatation. ABDOMINAL WALL: Small fat containing umbilical hernia URINARY BLADDER: Normal. No visible focal wall thickening, lesion, or calculus. PELVIC NODES: Normal. No adenopathy. Continued Report - Page 2 of 2 Patient: JEANETH CUELLO Phone#: : [phone] Age: 68 Gender: F Pt. Type: ER Account: [id number] Location: 052 Ordering: WILL DEY Exam Date: 05/10/2024/6:47 Family Phys: [facility] Charge Code: 915889 Physician: [place] Order #: [id number] Dose#: 26.5 mGy PELVIC ORGANS: Uterus is present. No adnexal mass. BONES: L4-5 posterior fusion with pedicle screws and rods. There is disc height loss at L4-5. Disc height loss at L5-S1. LUNG BASES: Normal. No visible pulmonary or pleural disease. OTHER: Negative. CONCLUSION: 1. Stricture of the distal descending/sigmoid colon, may be a malignant versus stricture. Recommend correlation with colonoscopy. 2. Obstructing stone at the right ureteral vesicular junction resulting in right hydronephrosis and hydroureter. 3. Diverticulosis This report was communicated in person to Dr. Trotter at the dictation time shown below. Dictated by: Heather Ugalde MD on 05/10/2024 at 8:32 Approved by: Heather Ugalde MD on 05/10/2024 at 8:48 Normal [facility] ED MED ADMINISTRATION DETAIL on 05-10-2024 ED MED ADMINISTRATION DETAIL Telegraphic Typewriter Repairer Medication Administration Record [address] [place] [address] [id number] 05/10/2024 Patient: JEANETH CUELLO Sex: Female : 1955 Age: 68y MEASUREMENTS: Wt: 130.2 kg, Ht/Elian: 63.0 in, BMI: 50.84 ALLERGIES: NOE Inhibitors, Beta-Blockers (Beta-Adrenergic Blocking Agts) Medication Ordered Medication Administration Date/Time IV NS 0.9 % 1000 07:35 05/10 IV NS 0.9 % 1000 mL started in bag#1 1000 mL at Started mL at 999 mL/hr 999 mL/hr via Site# 1. Allergies verified and confirmed 5 rights. Via 07:35 05/10/2024 (NOW x1) IV pump. IV patency established. IV site checked: no pain, redness, Phylicia Thorne R.N. or swelling. IV flushed thoroughly pre-medication administration. Stopped Information reviewed with patient and spouse including reason for :05/10/2024 taking this medication. - 07:35 Phylicia Thorne R.N. Phylicia Thorne R.N. Scanned 09:05/10 Medication Discontinued: bag #1 infused upon discharge. Total amount infused: 1000 mL. IV patency established. IV site checked: no pain, redness, or swelling. IV flushed thoroughly post-medication administration. - 09:40 Phylicia Thorne R.N. KetorOLAC 07:37 05/10 KetorOLAC (Toradol) IVP 30 mg given via Site# 1. Given (Toradol) IVP 30 mg Allergies verified and confirmed 5 rights. IV patency established. IV 07:37 05/10/2024 (NOW x1) site checked: no pain, redness, or swelling. IV flushed thoroughly Phylicia Thorne R.N. pre-medication administration. IVP given by nurse. Information Scanned reviewed with patient and spouse including reason for taking this medication. - 07:38 Phylicia Thorne R.N. 1 of 2 Telegraphic Typewriter Repairer Medication Ordered Medication Administration Date/Time MORPHine IVP 2 07:40 05/10 MORPHine IVP 2 mg given via Site# 1. Allergies Given mg (NOW x1, HIGH verified and confirmed 5 rights. IV patency established. IV site 07:40 05/10/2024 ALERT checked: no pain, redness, or swelling. IV flushed thoroughly Floyd RiveraN. MEDICATION) pre-medication administration. IVP given by nurse. Information Not Scanned reviewed with patient and spouse including reason for taking this medication and sedative warning. - 07:40 Phylicia Thorne R.N. Ondansetron IVP 4 07:36 03 Ondansetron IVP 4 mg given via Site# 1. Allergies Given mg (NOW x1) verified and confirmed 5 rights. IV patency established. IV site 07:36 05/10/2024 checked: no pain, redness, or swelling. IV flushed thoroughly Phylicia Thorne R.N. pre-medication administration. IVP given by nurse. Information Scanned reviewed with patient including reason for taking this medication. - 07:37 Phylicia Thorne R.N. MORPHine IVP 2 08:42 05/10 MORPHine IVP 2 mg given via Site# 1. Allergies Given mg (NOW x1, HIGH verified and confirmed 5 rights. IV patency established. IV site 08:42 05/10/2024 ALERT checked: no pain, redness, or swelling. IV flushed thoroughly Phylicia Thorne R.N. MEDICATION) pre-medication administration. IVP given by nurse. Information Not Scanned reviewed with patient and spouse including reason for taking this medication and sedative warning. - 08:42 Phylicia Thorne R.N. 2 of 2 Normal [facility] ED NURSES CLINICAL NOTEon ED NURSES CLINICAL NOTE Nurse Narrative Nurse Clinical Narrative [facility] [address] [place] [address] [id number] 05/10/2024 Patient: JEANETH CUELLO Sex: Female : 1955 Age: 68y Primary Insurance: [employer] Policy Number: [id number] Subscriber: Other Disposition: Discharge to Home Disposition Decision Time: 09:08 05/10/2024 Departure Time: 09:37 05/10/2024 TRIAGE Arrived by private vehicle. Historian: (patient). Primary physician (Verónica). Triage time: 06:20 05/10/2024. Acuity: LEVEL 3. Chief Complaint: ABDOMINAL PAIN and FLANK PAIN (sharp). This started just prior to arrival. SEPSIS SCREEN: NEGATIVE. SIRS criteria negative. No possible sources of infection. -- 07:34 05/10/24 EDT Mohsen Gonzales R.N. 06:20 05/10/24. HR: 87 bpm. O2 saturation: 91%. -- 07:34 05/10/24 EDT Mohsen Gonzales R.N. 06:24 05/10/24. BP: 176/102 MAP: 137 mmHg. HR: 86 bpm. -- 07:34 05/10/24 EDT Mohsen Gonzales R.N. 07:05/10/24. RR: 18. Temperature: 98 F. Pain level now 12/10. -- 07:34 05/10/24 EDT Mohsen Gonzales R.N. Measurements: 07:34 05/10/24 Wt: 130.2 kg, Ht/Elian: 63.0 in, BMI: 50.84 -- 07:05/10/24 EDT Mohsen Gonzales R.N. Medications: losartan 50 mg tablet: TAKE ONE TABLET BY MOUTH EVERY DAY -- 07:36 05/10/24 EDT Mohsen Gonzales RJoannaN. amlodipine 5 mg tablet: TAKE ONE TABLET BY MOUTH EVERY DAY -- 07:36 05/10/24 EDT Mohsen Gonzales R.N. 1 of 5 Nurse Narrative Eliquis 5 mg tablet: 5 mg twice a day for pulmonary thromboembolism. (per pt interview, not in erx) -- 07:38 05/10/24 EDT Mohsen Janet, R.N. Allergies: Beta-Blockers (Beta-Adrenergic Blocking Agts) -- 07[facility]32 [facility] NOE Inhibitors -- 07:32 05/10/24 EDT Mohsen Janet, R.N. Problems: Hypertension -- 07:32 05/10/24 EDT Mohsen Janet R.N. Pulmonary Embolism. Hx of, takes anticoagulants. -- 07:32 05/10/24 EDT Mohsen Janet, R.N. Asthma -- 07:32 05/10/24 EDT Mohsen Janet, R.N. Arthritis -- 07:32 05/10/24 EDT Mohsen Janet, R.N. Diabetes Mellitus Type 2 -- 07:33 05/10/24 EDT Mohsen Janet, R.N. ADDITIONAL SURGERIES: Back Surgery -- 07:33 05/10/24 ED Mohsen Janet R.N. [facility]olecystectomy -- 07:33 [facility] Hysterectomy -- 07:33 05/10/24 EDT Mohsen Janet, R.N. History 06:20 05/10/24. SOCIAL HX: Never smoker. No alcohol use or drug use. No recent travel. The patient has not traveled outside the [place] Infectious disease exposure: No infectious disease exposure. ABUSE ASSESSMENT: The patient answered yes to the question(s) Do you feel safe in your home? and no to the question(s) Are you afraid to go home?. SELF HARM ASSESSMENT: Self harm assessment was performed. The patient answered no to the question(s) Have you recently felt down, depressed, or hopeless? and Do you have thoughts of harming or killing yourself?. NUTRITIONAL RISK ASSESSMENT: The nutritional risk assessment revealed no deficiencies. 2 of 5 Nurse Narrative FUNCTIONAL ASSESSMENT: Functional assessment: no impairments noted. -- 07:34 05/10/24 ED Mohsen Janet R.N. 07:35 05/10/24. FALL RISK ASSESSMENT: Fall risk assessment completed. Risk factors identified include severe pain and patient age greater than 65 years. Fall interventions initiated. Side rails up x2. Bed in low position. Brakes on. Patient visible from nurses' station. Family at bedside. -- 07:35 05/10/24 EDT Mohsen Gonzales R.N. Interventions 07:35 05/10/24. Advanced care plan. It is unknown if patient has advanced directive. -- 07:35 05/10/24 EDT Mohsen Gonzales R.N. PHYSICAL ASSESSMENT 07:38 05/10/24. To room via wheelchair. ( Pt has a history of kidney stones, she states she woke up at 0400 with pain in her right flank area. Pt denies urinary symptoms at this time.). GENERAL / NEURO / PSYCH: Alert. Oriented X 4. Appears in pain. RESPIRATORY: Respirations not labored. Decreased breath sounds. GI / : The patient has had nausea. Abdominal tenderness in the right side of the abdomen and right lower quadrant (Right flank into back pain). -- 07:48 05/10/24 EDT Phylicia Thorne R.N. NURSING PROGRESS NOTES 07:20 05/10/24. Site #1 started via IV in the right antecubital space with an 18g angiocath with aseptic technique and good blood return; 1 attempt. Blood drawn: rainbow set and huerta tube(s). Saline lock flushed with 5 mL saline. -- 07:33 05/10/24 EDT Phylicia Thorne R.N. 07:35 05/10/24. IV NS 0.9 % 1000 mL started in bag#1 1000 mL at 999 mL/hr via Site# 1. Allergies verified and confirmed 5 rights. Via IV pump. IV patency established. IV site checked: no pain, redness, or swelling. IV flushed thoroughly pre-medication administration. Information reviewed with patient and spouse including reason for taking this medication. -- 07:35 05/10/24 EDT Phylicia Thorne R.N. 07:36 05/10/24. Ondansetron IVP 4 mg given via Site# 1. Allergies verified and confirmed 5 rights. IV patency established. IV site (more content not included)... Normal [facility] ED ORDER SHEET (CPOE ONLY)on 05-10-2024 ED ORDER SHEET (CPOE ONLY) Order Sheet Order Sheet [place] [address] [place] [address] [id number] 05/10/2024 [id number] Sex[facility] Female : 1955 Age: 68y MEASUREMENTS: Wt: 130.2 kg, Ht/Elian: 63.0 in, BMI: 50.84 ALLERGIES: NOE Inhibitors, Beta-Blockers (Beta-Adrenergic Blocking Agts) MEDICATION/IV/DRIP/F LUID ORDERS Order Description Priority Entered Acknowledged Completed IV NS 0.9 %1000 mL at 999 06:35 05/10/2024 07:35 mL/hr (NOW x1) Will Dey D.O. 05/10/2024 Phylicia Thorne R.N. KetorOLAC (Toradol) IVP30 mg 06:37 05/10/2024 07:38 (NOW x1) Will Dey D.O. 05/10/2024 Phylicia Thorne R.N. MORPHine IVP2 mg (NOW x1, 06:37 05/10/2024 07:39 07:40 HIGH ALERT MEDICATION) Will Dey D.O. 05/10/2024 05/10/2024 Phylicia Rivera R.N. R.NJoanna Ondansetron IVP4 mg (NOW x1) 06:37 05/10/2024 07:37 Will Dey D.O. 05/10/2024 Phylicia Thorne R.N. 1 of 3 Order Sheet MORPHine IVP2 mg (NOW x1, 08:22 05/10/2024 08:33 08:42 HIGH ALERT MEDICATION) Will Dey D.O. 05/10/2024 05/10/2024 Phylicia Rivera R.N. RJoannaNJoanna Reason for ordering with alerts: Clinical consideration given --08:22 05/10/2024 Will Dey D.O. LAB ORDERS Order Description Priority Entered Acknowledged Collected Completed CBC w Diff Stat Stat 06:35 05/10/2024 07:05 05/10/2024 07:45 05/10/2024 Gustavo Alejandre Natalie Yoder, R.N. R.NJoanna CMP Stat Stat 06:35 05/10/2024 07:05 05/10/2024 07:45 05/10/2024 Gustavo Alejandre Natalie Yoder, R.N. R.N. Troponin-I Stat Stat 06:35 05/10/2024 07:05 05/10/2024 07:45 05/10/2024 Gustavo Alejandre Natalie Yoder, R.N. R.N. EKG - ED Stat Stat 06:35 05/10/2024 07:05 05/10/2024 07:45 05/10/2024 Gustavo Alejandre Natalie Yoder, R.N. R.N. Lactate, Serum Stat Stat 06:35 05/10/2024 07:05 05/10/2024 07:45 05/10/2024 Gustavo Alejandre Natalie Yoder, R.N. R.N. Urinalysis Stat Stat 06:35 05/10/2024 07:05 05/10/2024 07:45 05/10/2024 Gustavo Alejandre Natalie Yoder, R.N. R.N. Lipase Stat Stat 06:39 05/10/2024 07:05 05/10/2024 07:45 05/10/2024 Gustavo Alejandre Natalie Yoder, R.N. R.N. CRP Stat Stat 06:39 05/10/2024 07:05 05/10/2024 07:45 05/10/2024 2 of 3 Order Sheet Gustavo Alejandre Natalie Yoder, R.N. R.N. DIAGNOSTIC STUDY ORDERS Order Description Priority Entered Acknowledged Completed CT ABD/PEL wo Cont Stat Stat 06:38 05/10/2024 07:05 07:45 Will Dey D.O. 05/10/2024 05/10/2024 Phylicia Rivera, Clarissa.N. R.N. Order Comments: 06:38 05/10/2024: Status: Not . Will Dey D.O. Reason for Study: Abdominal Pain STAFF ORDERS Order Description Priority Entered Acknowledged Collected Completed Vital Signs every 30 06:35 05/10/2024 07:05 05/10/2024 07:45 05/10/2024 minutes Gustavo Alejandre Natalie Yoder, R.NJoanna RJosé Manuel Oxygen titrate to 92% 06:35 05/10/2024 07:05 05/10/2024 07:45 05/10/2024 Gustavo Alejandre Natalie Yoder, R.NJoanna RJoannaNJoanna Intelligence Officer Basic 06:35 05/10/2024 07:05 05/10/2024 07:45 05/10/2024 Gustavo Alejandre Natalie Yoder, R.NJoanna RJosé Manuel [Electronically signed by Will Dey D.O. (05/10/2024 09:58 EDT)] 3 of 3 Normal [facility] ED PHYSICIAN CLINICAL REPORT on 05-10-2024 ED PHYSICIAN CLINICAL REPORT Narrative Physician Clinical Narrative [address] [place] [address] [phone] 05/10/2024 Patient: JEANETH CUELLO Sex: Female : 1955 Age: 68y Primary Insurance: [employer] ONE Policy Number: [id number] Subscriber: Other Disposition: Discharge to Home Disposition Decision Time: 09:08 05/10/2024 Departure Time: 09:37 05/10/2024 Measurements Wt: 130.2 kg, Ht/Elian: 63.0 in, BMI: 50.84 Initial Vital Sign Measured Time BP MAP HR RR O2Sat ETCO2 Temp Pain GCS RTS 06:20 05/10/2024 87 91% Time Seen: 06:21 05/10/2024. Arrived- By private vehicle. Historian- patient. Independent historian- family. HISTORY OF PRESENT ILLNESS Chief Complaint: FLANK PAIN. It is described as located in the right flank and the right lower quadrant. This started today Complaining of right flank pain that started sudden onset for a.m.. Feels like her previous kidney stones. Positive nausea. No vomiting. Rates her pain a 10 on a severity scale 1-10. Describes the pain as sharp in nature. Mildly worse with movement. At its maximum, severity described as 10 / 10. When seen in the E.D., severity described as 10 / 10. The patient has had nausea. No vomiting or diarrhea. Similar symptoms previously. Patient has had similar symptoms several times. ( History of kidney stones.). Recent medical care: Not recently seen/assessed. 1 of 15 Narrative REVIEW OF SYSTEMS : The patient has had difficulty with urination. No pain with urination or urinary frequency. CONSTITUTIONAL: No fever or chills. EYES: No blurred vision. THROAT: No sore throat. CVS: No chest pain. RESPIRATORY: No difficulty breathing. MUSCULOSKELETAL: No joint pain. SKIN: No skin rash. NEUROLOGICAL: No headache. GI: No constipation or black stools. Status: Not . PAST HISTORY See nurses notes. Arthritis Asthma Diabetes Mellitus Type 2 Hypertension Pulmonary Embolism: (Hx of, takes anticoagulants.) Surgeries: Back Surgery Cholecystectomy Hysterectomy Medications: amlodipine 5 mg tablet Eliquis 5 mg tablet: 5 mg twice a day. (per pt interview, not in erx) losartan 50 mg tablet Allergies: NOE Inhibitors Beta-Blockers (Beta-Adrenergic Blocking Agts) SOCIAL HISTORY Never smoker. No alcohol use or drug use. ADDITIONAL NOTES 2 of 15 Narrative The nursing notes have been reviewed. PHYSICAL EXAM Appearance: Alert. Oriented X3. Appears to be in pain. Eyes: Pupils equal, round and reactive to light. ENT: Nose normal. Pharynx normal. Neck: Normal inspection. Neck supple. CVS: Normal heart rate and rhythm. Heart sounds normal. Pulses normal. Respiratory: No respiratory distress. Breath sounds normal. Abdomen: Soft. Moderate tenderness in the right lower quadrant with guarding present. No rebound tenderness. Bowel sounds normal. No organomegaly. No mass. Obese. Back: Moderate CVA tenderness on the right. Skin: Skin warm and dry. No rash. Extremities: Extremities exhibit normal ROM. No lower extremity edema. Neuro: Oriented X 3. No motor deficit. No sensory deficit. LABS, X-RAYS, AND EKG 12-LEAD EKG: EKG time: 08:09 05/10/2024. Normal sinus rhythm. Rate: 81. Normal P waves. Normal QRS complex. Non-specific ST segment / T wave abnormalities. The study has been interpreted contemporaneously by me. The EKG appears to be a good tracing. Interpretation time: 08:10 05/10/2024. Laboratory Tests: CBC + DIFF Final RICCARDO: 05/10/2024 07:20:00 EDT MsgRcvd: 05/10/2024 07:51 EDT Lab Test Result Reference Status Received Comments 05/10/2024 07:51 CBC-COMPLETE CBC + DIFF Final EDT BLOOD COUNT 05/10/2024 07:51 WBC 9.4 x 10/UL 4.5 - 10.8 Final EDT 05/10/2024 07:51 RBC 5.15 x 10/UL 4.10 - 5.30 Final EDT 3 of 15 Narrative Lab Test Result Reference Status Received Comments 05/10/2024 07:51 HEMOGLOBIN 14.6 g/dl 12.0 - 16.0 Final EDT 05/10/2024 07:51 HEMATOCRIT 43.5 % 34.0 - 46.0 Final EDT 05/10/2024 07:51 MCV 85 fl 80 - 99 Final EDT 05/10/2024 07:51 MCH 28 pg 27 - 33 Final EDT 05/10/2024 07:51 MCHC 34 X10 3 32 - 36 Final EDT 05/10/2024 07:51 RDW/CV 14.8 % 12.0 - 15.6 Final EDT 05/10/2024 07:51 PLATELET 263 x10/UL 150 - 450 Final EDT 05/10/2024 07:51 AUTOMATED MPV 7.9 fl 6.6 - 10.5 Final EDT DIFFERENTIAL 78.6 % 05/10/2024 07:51 NEUT % 46.0 - 76.0 Final Above high normal EDT 13.7 % 05/10/2024 07:51 LYMPH % 20.0 - 45.0 Final Below low normal EDT 05/10/2024 07:51 MONOS % 6.5 % 0.0 - 10.0 Final EDT 05/10/2024 07:51 EO % 1.0 % 0.0 - 7.0 Final EDT 05/10/2024 07:51 BASO % 0.2 % 0.0 - 2.0 Final EDT 4 of 15 Narrative Lab Test Result Reference Status Received Comments 05/10/2024 07:51 Lymph # 1.29 x10/UL 0.80 - 2.80 Final EDT 7.41 x10/ (more content not included)... Normal [facility] ED SUPER BILLon 05-10-2024 ED [facility] [address] [address] [phone] 05/10/2024 Patient: JEANETH CUELLO Sex: Female : 1955 Age: 68y Facility Professional Category Item Description Code Code Quantity Fee Total Nurse/E/M EMERGENCY 354695 1 $0.00 $0.00 DEPT VISIT HIGH SEVERITYFUNCJ (76577-63) Nurse/IV/IM/Infusion s Hydration 940678 2 $0.00 $0.00 additional hour (31886) Nurse/IV/IM/Infusion s IVP additional 069247 2 $0.00 $0.00 push (15166) Nurse/IV/IM/Infusion s IVP initial (47892) 016090 1 $0.00 $0.00 Nurse/IV/IM/Infusion s IVP same med 352911 1 $0.00 $0.00 (31 min apart) (86945) Grand $0.00 Total Providers Will Dey D.O. 1 of 2 [facility] Chief Complaint FLANK PAIN. Principal Diagnosis Ureterolithiasis (single stone) in the right ureter with hydronephrosis. Acute urinary tract infection with cystitis and hematuria. (colonic narrowing). ICD-10 Codes N20.1: Calculus of ureter N30.91: Cystitis, unspecified with hematuria 2 of 2 Normal [facility] ED VISIT SUMMARYon ED VISIT SUMMARY Visit Overview Visit Overview [address] [address] [id number] 05/10/2024 Patient: JEANETH CUELLO Sex: Female : 1955 Age: 68y 05/10/2024 09:59 AM EDT ED Arrival:06:16 05/10/2024 EDT Status:not Recent Travel:no Language:eng Adv Directive:Unknown Isolation Status: Ethnicity:N Fall Risk:risk Infectious Disease Exposure:no Measurements:5'3 / 160.0 Self-Harm Status:risk Sepsis Screen:negative cm 287.0 lb / 130.2 kg Chief Complaint:ABDOMINAL PAIN, FLANK PAIN, (Beechy), and (sharp) ALLERGIES NOE Inhibitors Beta-Blockers (Beta-Adrenergic Blocking Agts) HOME MEDICATIONS amlodipine 5 mg tablet Eliquis 5 mg tablet: 5 mg twice a day. (per pt interview, not in erx) losartan 50 mg tablet 1 of 3 Visit Overview PAST MEDICAL HISTORY / PROBLEMS Arthritis Asthma Diabetes Mellitus Type 2 Hypertension Pulmonary Embolism. Hx of, takes anticoagulants. See nurses notes PAST SURGICAL HISTORY Back Surgery Cholecystectomy Hysterectomy SOCIAL HISTORY Nutritional assessment: No deficits Functional assessment: No impairments Smoking status: No Alcohol use: No Drug use: No ED COURSE MEDICATIONS GIVEN IN EMERGENCY DEPARTMENT 07:35 05/10/24 IV NS 0.9 % 1000 mL 999 mL/hr 07:36 05/10/24 Ondansetron IVP 4 mg 07:37 05/10/24 KetorOLAC (Toradol) IVP 30 mg 07:40 05/10/24 MORPHine IVP 2 mg 08:42 05/10/24 MORPHine IVP 2 mg IV SITE INFORMATION INTAKE OUTPUT REASSESMENT (most recent) 2 of 3 Visit Overview 08:48 05/10/24. Reassessment after medication administered. Pain still present but improving. Overall patient status is improved- the patient states feels better. VITAL SIGNS First Vitals Last Vitals Temp 06:20 05/10/24 Temp 09:24 05/10/24 BP 06:20 05/10/24 BP 09:24 05/10/24 183/97 HR 06:20 05/10/24 87 HR 09:05/10/24 74 RR 06:20 05/10/24 RR 09:24 05/10/24 O2 Sat 06:20 05/10/24 91% O2 Sat 09:24 05/10/24 Pain 06:20 05/10/24 Pain 09:24 05/10/24 ETCO2 06:20 05/10/24 ETCO2 09:05/10/24 GCS 06:20 05/10/24 GCS 09:24 05/10/24 RTS 06:20 05/10/24 RTS 09:24 05/10/24 PROCEDURES NURSING INTERVENTIONS LABS / STUDIES LABS / STUDIES ORDERED CBC w Diff CMP CRP CT ABD/PEL wo Cont EKG - ED Lactate, Serum Lipase Troponin-I Urinalysis CLINICAL IMPRESSION ACUTE URINARY TRACT INFECTION WITH CYSTITIS AND HEMATURIA URETEROLITHIASIS (SINGLE STONE) IN THE RIGHT URETER WITH HYDRONEPHROSIS 3 of 3 Normal [facility] ED VITALS FLOW SHEETon 05-10 ED VITALS FLOW SHEET Vitals Vital Sign Flow Sheet [place] [address] [place] [address] [phone] 05/10/2024 Patient: JEANETH CUELLO Sex: Female : 1955 Age: 68y Measurements Wt: 130.2 kg, Ht/Elian: 63.0 in, BMI: 50.84 Measured Time BP MAP HR RR O2Sat ETCO2 Temp Pain GCS RTS 09:24 05/10/2024 183/97 125 74 09:04 05/10/2024 188/108 134 76 09:00 05/10/2024 79 96% 08:55 05/10/2024 77 96% 08:50 05/10/2024 78 91% 08:48 05/10/2024 5 08:45 05/10/2024 78 93% 08:44 05/10/2024 184/94 124 79 08:20 05/10/2024 78 96% 08:15 05/10/2024 79 93% 08:10 05/10/2024 83 93% 08:05 05/10/2024 81 95% 08:00 05/10/2024 86 96% 07:45 05/10/2024 83 92% 07:43 05/10/2024 186/97 126 82 1 of 2 Vitals Measured Time BP MAP HR RR O2Sat ETCO2 Temp Pain GCS RTS 07:34 05/10/2024 18 98.0 F 10 06:45 05/10/2024 79 90% 06:40 05/10/2024 81 88% 06:35 05/10/2024 82 89% 06:30 05/10/2024 83 86% 06:25 05/10/2024 87 94% 06:24 05/10/2024 176/102 137 86 06:20 05/10/2024 199/106 131 88 06:20 05/10/2024 87 91% 2 of 2 Normal [facility] LACTATEon 05-10-2024 Lactate [Moles/Vol] 1.3 mmol/L Normal 0.4 - 2.0 [facility] Comment on above: Performed By: #### 2 [id number] #### [facility],[address] [place], [place] [id number] LIPASEon 05-10-2024 Lipase [Catalytic activity/Vol] 23.0 U/L Normal 15.0 - 78.0 U/L [facility]; [facility] Work Phone: Comment on above: Result Comment: *PLE ASE NOTE THAT RANGES FOR LIPASE HAVE CHANGED OF 02/28/23 DUE TO AN ASSAY UPDATE BY THE ASSISTANT OFFICE MANAGER.THE NEW ASSAY RANGE IS 6-250 U/L, WITH A REFERENCE RANGE OF 16-77 U/L. Performed By: #### 2 [id number] #### [facility] [place],[address] [place] [address] Laboratory - Chemistry and C hemistry - challengeon 05-10-2024 Albumin [Mass/Vol] 0.6 g/dL Abnormal 0.9 - 1.6 [facility]; [facility], [facility]. Work Phone: Bilirubin [Mass/Vol] Negative Normal [facility]; [facility]. Work Phone: CRP [Mass/Vol] 3.36 mg/dL Abnormal 0.00 - 0.90 mg/dL [facility].; [facility]. Work Phone: GFR/1.73 sq M.predicted among blacks MDRD (S/P/Bld) [Vol rate/Area] 60 {ML/MINUTE} Normal 60 - 999 {ML/MINUTE} [facility]; [facility], [facility]. Work Phone: GFR/1.73 sq M.predicted MDRD (S/P/Bld) [Vol rate/Area] 50 {ML/MINUTE} Abnormal 60 - 999 {ML/MINUTE} [facility]; [facility] Work Phone: Glucose [Mass/Vol] 100 mg/dL Abnormal [facility]; [facility] Work Phone: Lactate [Mass/Vol] 1.3 mmol/L Normal 0.4 - 2.0 mmol/L [facility]; [facility] Work Phone: pH (Bld) 6 [pH] Normal [facility]; [facility] Work Phone: Protein [Mass/Vol] 30 g/dL Abnormal [facility]; [facility] Work Phone: Urea nitrogen (U) [Mass/Vol] 4.6 pg/mL Normal 0.0 - 51.4 pg/mL [facility]; [facility] Work Phone: Urea nitrogen/Creatinine [Mass ratio] 17 {ratio} Normal 0 - 30 {ratio} [facility]; [facility] Work Phone: Laboratory - Hematology and Cell countson 05-10-2024 Basophils (Bld) [#/Vol] 0.02 {x10EE3/UL} Normal 0.00 - 0.10 {x10EE3/UL} [facility]; [facility] Work Phone: Eosinophils (Bld) [#/Vol] 0.09 {x10EE3/UL} Normal 0.00 - 0.50 {x10EE3/UL} [facility]; [facility]. Work Phone: Lymphocytes (Bld) [#/Vol] 1.29 {x10EE3/UL} Normal 0.80 - 2.80 {x10EE3/UL} [facility]; [facility] Work Phone: MCHC (RBC) [Mass/Vol] 34 {X10_3} Normal 32 - 3 6 {X10_3} [facility]; [facility] Work Phone: Monocytes (Bld) [#/Vol] 0.61 {x10EE3/UL} Normal 0.20 - 1.00 {x10EE3/UL} [facility].; [facility] Work Phone: Monocytes/100 WBC (Bld) 6.5 % Normal 0.0 - 10.0 % [facility]; [facility] Work Phone: Neutrophils (Bld) [#/Vol] 7.41 {x10EE3/UL} Abnormal 1.50 - 7.10 {x10EE3/UL} [facility]; [facility]. Work Phone: Platelets (Bld) [#/Vol] 263 {x10EE3/UL} Normal 1 50 - 450 {x10EE3/UL} [facility]; [facility]. Work Phone: RBC (Bld) [#/Vol] 5.15 {x_10EE6/UL} Normal 4.10 - 5.30 {x_10EE6/UL} [facility].; [facility] Work Phone: WBC (Bld) [#/Vol] 9.4 {x_10EE3/UL} Normal 4.5 - 10.8 {x_10EE3/UL} [facility].; [facility]. Work Phone: WBC (Bld) [#/Vol] 25 10*3/uL Abnormal [facility].; [facility]. Work Phone: Laboratory - Microbiology an d Antimicrobial susceptibilityon 05-10-2024 Bacteria identified Cx Nom (Unsp spec) 3+ Normal [facility].; [facility]. Work Phone: Laboratory - Specimen inform ationon 05-10-2024 Specimen type Nom (Spec) R Normal [facility].; [facility]. Work Phone: Laboratory - Urinalysison Yeast LM Ql (Urine sed) NONE Normal [facility].; [facility] Work Phone: No Panel Informationon 05-10 AGE 68 {years} Normal [facility].; [facility]. Work Phone: Blood 250 Abnormal [facility].; [facility]. Work Phone: CBC + DIFF Normal [facility].; [facility]. Work Phone: CMP with eGFR Normal [facility]; [facility] Work Phone: Microscopic SEE BELOW Normal [facility].; [facility]. Work Phone: TROPONINon 05-10-2024 HS TROPONIN 4.6 pg/mL Normal 0.0 - 51.4 [facility] [place] Comment on above: Performed By: #### 2 [id number] #### [facility] [place],[address] [place] [address] URINALYSISon 05-10-2024 Amorphous NONE Normal [facility] [employer] [facility] Work Phone: Comment on above: Performed By: #### 2 [id number] #### [facility] [place],[address] [place] [address] Bacteria 3+ Normal [facility] [place] Comment on above: Performed By: #### 2 [id number] #### [facility] [place],[address] [place], [place] [id number] Bilirubin Ql (U) Negative Normal NORMAL: NEGATIVE [facility] [place] Comment on above: Performed By: #### 2 [id number] #### [facility] [place],[address] [place] [address] Casts NONE [facility] Work Phone: Comment on above: Performed By: #### 2 [id number] #### [facility] [place],[address] [place] [address] Clarity (U) sl.cloudy [facility] Work Phone: Comment on above: Performed By: #### 2 [id number] #### [facility] [place],[address] [place] [address] Color (U) yellow Normal [facility] [employer] [facility] Work Phone: Comment on above: Performed By: #### 2 [id number] #### [facility] [place],[address] [place] [address]74 Crystals LM Nom (Urine sed) NONE Normal [facility] [employer] [facility] [employer] [facility] Work Phone: Comment on above: Performed By: #### 2 [id number] #### [facility] [place],[address] [place] [address] Epi Cells OCC Normal [facility] [employer] [facility] [employer] [facility] Work Phone: Comment on above: Performed By: #### 2 [id number] #### [facility] [place],[address] [place] [address] Glucose Ql (U) 100 Abnormal NORMAL: NORMAL [facility] [place] Comment on above: Performed By: #### 2 [id number] #### [facility] [place],[address] [place] [address] Hemoglobin Ql (U) 250 Abnormal NORMAL: NEGATIVE [facility] [place] Comment on above: Performed By: #### 2 [id number] #### [facility] [place],[address] [place] [address] Ketone 5 Abnormal [facility] [employer] [facility].; [facility] [employer] [facility] Work Phone: Comment on above: Performed By: #### 2 63625 #### [facility] [place],[address] [place] [address] Leukocytes 25 Abnormal NORMAL: NEGATIVE [facility] [place] Comment on above: Performed By: #### 2 [id number] #### [facility] [place],[address] [place] [address] Mucous NONE Normal [facility] [employer] [facility].; [facility] [employer] [facility], [employer]. Work Phone: Comment on above: Performed By: #### 2 [id number] #### [facility] [place],[address] [place], [place] [id number] Nitrite Ql (U) Negative Normal [facility] [employer] [facility].; [employer] [facility] [employer] [facility], [employer]. Work Phone: Comment on above: Performed By: #### 2 [id number] #### [facility] [place],[address] [place] [address] pH (U) 6 [pH] Normal NORMAL: 5.0-8.0 [facility] [place] Comment on above: Performed By: #### 2 [id number] #### [place] [address] Protein Ql (U) 30 Abnormal NORMAL: NEGATIVE [facility] [place] Comment on above: Performed By: #### 2 [id number] #### [facility] [place],[address] [place] [address] Rbc 15-20 Normal 0 - [address] [facility] [address] [address] [facility]; [facility]. Work Phone: Comment on above: Performed By: #### 2 62303 #### [place] [address] Sp [place] 1.020 Normal [facility]; [facility] [employer] [facility]. Work Phone: Comment on above: Performed By: #### 2 95978 #### [place] [address] Specimen Type R Normal [facility] Comment on above: Performed By: #### 2 [id number] #### [place] [address] Urinalysis dipstick W Reflex Microscopic panel (U) SEE BELOW Normal [facility] [place] Comment on above: Result Comment: MICR OSCOPIC Performed By: #### 2 [id number] #### [place] [address] Urobilinog 1 Abnormal [facility].; [facility] [employer] [facility] [employer] [facility]. Work Phone: Comment on above: Performed By: #### 2 [id number] #### [facility] [place] [address] Wbc 6-10 Normal 0 - [address] [facility] [address] [facility], [employer] [facility] [employer] [facility], [employer]. Work Phone: Comment on above: Performed By: #### 2 [id number] #### [facility] [place],[address] [place] [address] Yeast NONE Normal [facility] [place] Comment on above: Performed By: #### 2 [id number] #### [facility] [place],[address] [place] [address] Laboratory - Chemistry and C hemistry - challengeon 05-03-2024 Calcium [Mass/Vol] 8.8 mg/dL Normal 8.7 - 10. 3 mg/dL [facility], [facility].; [facility] [employer] [facility] Chloride [Moles/Vol] 98 mmol/L Normal 96 - 10 6 mmol/L [facility].; [employer] [facility] [employer] [facility] [employer] CO2 [Moles/Vol] 21 mmol/L Normal 20 - 29 mmol/L [facility].; [facility] [employer] [facility] Creatinine [Mass/Vol] 0.96 mg/dL Normal 0.57 - 1.00 mg/dL [facility].; [facility] [employer] [facility] GFR/1.73 sq M.predicted among non-blacks MDRD (S/P/Bld) [Vol rate/Area] 64 mL/min/{1.73_m2} Normal [facility], [facility].; [facility] [employer] [facility] Glucose [Mass/Vol] 196 mg/dL Abnormal 70 - 99 mg/dL [facility], [facility].; [facility] [employer] [facility] Potassium [Moles/Vol] 3.8 mmol/L Normal 3.5 - 5.2 mmol/L [facility].; [facility] [employer] [facility] Sodium [Moles/Vol] 134 mmol/L Normal 134 - 144 mmol/L [facility]; [facility] Urea nitrogen [Mass/Vol] 16 mg/dL Normal 8 - 27 mg/dL [facility]; [facility] Urea nitrogen/Creatinine [Mass ratio] 17 mg/mg Normal 12 - 28 [facility]; [facility] Laboratory - Hematology and Cell countson 05-03-2024 HbA1c (Bld) [Mass fraction] 8.6 % Abnormal 4.8 - 5.6 % [facility]; [facility]. US EXTREMITY NONVASCULAR AGUIRRE ITEDon 04-22-2024 EXTREMITY NONVASCULAR LIMITED [place] [address] Patient: JEANETH CUELLO Phone#: : [phone] Age: 68 Gender: F Pt. Type: Out Account: [id number] Location: [facility] Ordering: [facility] Exam Date: 04/22/2024/14:22 Family Phys: Charge Code: [id number] Physician: [place] Order #: [id number] Dose#: PROCEDURE: ULTRASOUND NONVASCULAR LIMITED COMPARISON: None. INDICATIONS: Mass of left lower extremity. TECHNIQUE: Sonography was performed of the clinically requested area of interest. FINDINGS: REGION IMAGED: Left anterior lower extremity MASSES: None. No evident mass. FLUID COLLECTIONS: None. No abnormal fluid collection. OTHER: In the area palpable concern in the subcutaneous tissues is hyperechoic and heterogeneous in echogenicity. Appearance is most suggestive of edema. CONCLUSION: 1. EDEMA IN THE SUBCUTANEOUS TISSUES IN THE AREA PALPABLE CONCERN. NO MASS. NO FLUID COLLECTION. Dictated by: Heather Ugalde MD on 04/22/2024 at 17:45 Approved by: Heather Ugalde MD on 04/22/2024 at 17:48 Normal [facility] [place] ED MED ADMINISTRATION DETAIL on 03-18-2024 ED MED ADMINISTRATION DETAIL Telegraph[employer] Typewriter Repairer Medication Administration Record [place] [id number] 03/14/2024 Patient: JEANETH CUELLO Sex: Female : 1955 Age: 68y MEASUREMENTS: Wt: 127.0 kg ALLERGIES: NOE Inhibitors, Beta-Blockers (Beta-Adrenergic Blocking Agts) Medication Ordered Medication Administration Date/Time IV NS 0.9 % 1000 22:03/14 IV NS 0.9 % 1000 mL started in bag#1 1000 mL at Started mL at 999 mL/hr 999 mL/hr via Site# 1. Allergies verified and confirmed 5 rights. 22:12 03/14/2024 (NOW x1) Started prior to arrival by EMS via dial-a-flow. IV patency Denny Tolbert R.N. established. IV site checked: no pain, redness, or swelling. IV Stopped flushed thoroughly pre-medication administration. Information 23:03/14/2024 reviewed with patient including reason for taking this medication. Denny Tolbert R.N. Verbalizes understanding. - 22:57 Denny Tolbert R.N. Scanned 23:03/14 Medication Discontinued: bag #1 completed upon discharge. Total amount infused: 1000 mL. IV patency established. IV site checked: no pain, redness, or swelling. IV flushed thoroughly post-medication administration. - 23:10 Denny Tolbert R.N. 1 of 5 [employer] Repairer Medication Ordered Medication Administration Date/Time KetorOLAC 22:14 03/14 KetorOLAC (Toradol) IVP 30 mg given via Site# 1. Given (Toradol) IVP 30 mg Allergies verified and confirmed 5 rights. IV patency established. IV 22:14 03/14/2024 (NOW x1) site checked: no pain, redness, or swelling. IV flushed thoroughly Denny Tolbert R.N. pre-medication administration. IVP given by nurse. Information Scanned reviewed with patient including reason for taking this medication. Verbalizes understanding. - 22:20 Denny Tolbert R.N. 22:56 03/14 Medication Response: Pain is improving. Symptoms have improved. The patient feels better. (left flank pain now 4/10 from 12/10). - 22:56 Denny Tolbert R.N. Zofran IVP 4 mg 22:11 03/14 Zofran IVP 4 mg given via Site# 1. Allergies verified Given (NOW x1) and confirmed 5 rights. IV patency established. IV site checked: no 22:03/14/2024 pain, redness, or swelling. IV flushed thoroughly pre-medication Denny Tolbert R.N. administration. IVP given by nurse. Information reviewed with Scanned patient including reason for taking this medication. Verbalizes understanding. - 22:14 Denny Tolbert R.N. HYDROmorphone 23:16 03/14 HYDROmorphone (Dilaudid) IVP 0.5 mg given via Given (Dilaudid) IVP 0.5 Site# 1. Allergies verified and confirmed 5 rights. IV patency 23:16 03/14/2024 mg (NOW x1, HIGH established. IV site checked: no pain, redness, or swelling. IV FELICIANO Moore flushed thoroughly pre-medication administration. IVP given by E.M.T.-P. MEDICATION) EMT-P. Information reviewed with patient including sedative Scanned warning. Verbalizes understanding. Vitals: 23:09 03/14/2024 BP: 178/97 MAP: 124 mmHg. HR: 93 bpm. Medication Wastage: 0.5 mg wasted. - 23:16 Phuong MooreMJoannaT.-P. 23:37 03/14 Medication Response: Pain is improving. Symptoms have improved. The patient feels better. (pain from 7/10 to 3/10, pt better.). - 23:37 Denny Tolbert R.N. 2 of 5 Telegraphic Typewriter Repairer Medication Ordered Medication Administration Date/Time cefTRIAXone 23:32 03/14 cefTRIAXone (Rocephin) IVPB 1gm/50ml NS 1 g Started (Rocephin) IVPB started at 100 mL/hr diluted in sodium chloride IVPB 0.9 % 23:32 03/14/2024 1gm/50ml NS 1 g Minibag+ 50 mL via Site# 1. Allergies verified and confirmed 5 Denny Tolbert R.N. diluted in sodium rights. Via dial-a-flow. IV patency established. IV site checked: no Stopped chloride IVPB 0.9 % pain, redness, or swelling. IV flushed thoroughly pre-medication 00:00 03/15/2024 Minibag+ 50 mL at administration. Information reviewed with patient including reason Denny Tolbert R.N. 100 mL/hr (NOW x1) for taking this medication. Verbalizes understanding. - 23:33 Scanned Denny Tolbert R.N. 00:00 03/15 Medication Discontinued: IV infused. Total amount infused: 50 mL. IV patency established. IV site checked: no pain, redness, or swelling. IV flushed thoroughly post-medication administration. - 00:26 Denny Tolbert R.N. OxyCODONE-APAP 00:24 03/15 OxyCODONE-APAP 5-325 (Percocet) PO 1 tab given. Given 5-325 (Percocet) PO Allergies verified and confirmed 5 rights. Information reviewed with 00:24 03/15/2024 1 tab (NOW x1) patient including reason for taking this medication. Verbalizes Denny Tolbert R.N. understanding. - 00:24 Denny Tolbert R.N. Scanned 3 of 5 Telegraphic Typewriter Repairer Medication Ordered Medication Administration Date/Time Order Comments: 00:16 03/15/2024: (2 tablet s to go. one every 6 hour s as need ed prn pain. ) Donnie Dey D.O. OxyCODONE-APAP 00:51 03/15 OxyCODONE-APAP 5-325 (Percocet) PO 2 tab given. Given 5-325 (Percocet) PO Al (more content not included)... Normal [facility] [place] ED NURSES CLINICAL NOTEon ED NURSES CLINICAL NOTE Nurse Narrative Nurse Clinical [address] [place] [address] [id number] 03/14/2024 Patient: JEANETH CUELLO Sex: Female : 1955 Age: 68y Disposition: Discharge to Home Disposition Decision Time: 00:09 03/15/2024 Departure Time: 00:52 03/15/2024 TRIAGE Arrived by EMS. Historian: patient. Accompanied by family. ( Patient given 4 zofran and 50 fentanyl by EMS.). Triage time: 21:57 03/14/2024. Acuity: LEVEL 3. Chief Complaint: ABDOMINAL PAIN, LOW BACK PAIN and LEFT-SIDED FLANK PAIN. SEPSIS SCREEN: NEGATIVE. SIRS criteria negative. No possible sources of infection. -- 22:03/14/24 SEKOU Rincon R.N. 22:03/14/24. BP: 202/107 MAP: 139. HR: 98. RR: 18. O2 saturation: 92% on nasal cannula at 2 liters/minute. Temperature: 98.4 F. Pain level now 9/10. -- 22:03/14/24 SEKOU Rincon R.N. Measurements: 22:03/14/24 Wt: 127.0 kg -- 22:03/14/24 SEKOU Rincon R.N. Medications: unable to obtain home medications -- 21:57 03/14/24 SEKOU Rincon R.N. Allergies: Beta-Blockers (Beta-Adrenergic Blocking Agts) -- 21:57 03/14/24 SEKOU Rincon R.N. 1 of 5 Nurse Narrative NOE Inhibitors -- 21:58 03/14/24 SEKOU Rincon R.N. Problems: Hypertension -- 21:58 03/14/24 SEKOU Rincon R.N. Pulmonary Embolism. Hx of, takes anticoagulants. -- 21:59 03/14/24 SEKOU Rincon R.N. ADDITIONAL SURGERIES: Back Surgery -- 21:58 03/14/24 SEKOU Rincon R.N. Cholecystectomy -- 21:58 03/14/24 SEKOU Rincon R.N. History 21:57 03/14/24. SOCIAL HX: Never smoker. No alcohol use or drug use. The patient has not traveled outside the [place] Infectious disease exposure: No infectious disease exposure. ABUSE ASSESSMENT: The patient answered yes to the question(s) Do you feel safe in your home? and no to the question(s) Are you afraid to go home?. SELF HARM ASSESSMENT: Self harm assessment was performed. The patient answered no to the question(s) Have you recently felt down, depressed, or hopeless? and Do you have thoughts of harming or killing yourself?. FALL RISK ASSESSMENT: Fall risk assessment completed. Risk factors identified include patient age greater than 65 years. -- 22:03/14/24 SEKOU Rincon R.N. Interventions 21:57 03/14/24. Advanced care plan discussed with patient. Patient does not have advanced directive. -- :03/14/24 SEKOU Rincon R.N. PHYSICAL ASSESSMENT 22:03/14/24. GENERAL / NEURO / PSYCH: Alert. Oriented X 4. Appears in no acute distress. ( pt c/o 12/10 [place] [address] tonight, consistent with kidney stone pain she has had in the past.). 2 of 5 Nurse Narrative RESPIRATORY: Respirations not labored. Breath sounds within normal limits. SKIN: Skin is warm and dry. -- :03/14/24 SEKOU Tolbert R.N. NURSING PROGRESS NOTES :03/14/24. Site #1 started prior to arrival by EMS via IV in the right antecubital space with a 20g angiocath. -- :03/14/24 SEKOU Tolbert R.N. 22:11 03/14/24. Zofran IVP 4 mg given via Site# 1. Allergies verified and confirmed 5 rights. IV patency established. IV site checked: no pain, redness, or swelling. IV flushed thoroughly pre-medication administration. IVP given by nurse. Information reviewed with patient including reason for taking this medication. Verbalizes understanding. -- :03/14/24 SEKOU Tolbert R.N. 22:03/14/24. NIBP monitor and pulse oximeter placed on patient. Head of bed elevated 45 degrees. Patient identifiers checked. Call light placed in reach. Side rails up x 1. Bed placed in lowest position. Brakes of bed on. Spouse at bedside. -- :03/14/24 SEKOU Tolbert R.N. 22:03/14/24. IV NS 0.9 % 1000 mL started in bag#1 1000 mL at 999 mL/hr via Site# 1. Allergies verified and confirmed 5 rights. Started prior to arrival by EMS via dial-a-flow. IV patency established. IV site checked: no pain, redness, or swelling. IV flushed thoroughly pre-medication administration. Information reviewed with patient including reason for taking this medication. Verbalizes understanding. -- :03/14/24 SEKOU Tolbert R.N. 22:14 03/14/24. KetorOLAC (Toradol) IVP 30 mg given via Site# 1. Allergies verified and confirmed 5 rights. IV patency established. IV site checked: no pain, redness, or swelling. IV flushed thoroughly pre-medication administration. IVP given by nurse. Information reviewed with patient including reason for taking this medication. Verbalizes understanding. -- 22:20 03/14/24 EST Denny Tolbert R.N. 22:43 03/14/24. Patient transported to MD by stretcher with tech. -- 22:43 03/14/24 EST Denny Tolbert R.N. 22:56 03/14/24. KetorOLAC (Toradol) IVP: Medication Response. Pain is improving. Symptoms have improved. The patient (more content not included)... Normal [facility] ED ORDER SHEET (CPOE ONLY)on 03-18-2024 ED ORDER SHEET (CPOE ONLY) Order Sheet Order Sheet [address] [place] [address] [id number] 03/14/2024 Patient: JEANETH CUELLO Sex: Female : 1955 Age: 68y MEASUREMENTS: Wt: 127.0 kg ALLERGIES: NOE Inhibitors, Beta-Blockers (Beta-Adrenergic Blocking Agts) MEDICATION/IV/DRIP/F LUID ORDERS Order Description Priority Entered Acknowledged Completed IV NS 0.9 %1000 mL at 999 22:05 03/14/2024 22:08 22:57 mL/hr (NOW x1) Will Dey D.O. 03/14/2024 03/14/2024 Denny Esparza R.N. R.N. KetorOLAC (Toradol) IVP30 mg 22:06 03/14/2024 22:08 22:20 (NOW x1) Will Dey D.O. 03/14/2024 03/14/2024 Denny Esparza R.N. R.N. Zofran IVP4 mg (NOW x1) 22:06 03/14/2024 22:08 22:14 Will Dey D.O. 03/14/2024 03/14/2024 Denny Esparza R.NJoanna R.N. HYDROmorphone (Dilaudid) 23:07 03/14/2024 23:09 23:16 IVP0.5 mg (NOW x1, HIGH Will Dey D.O. 03/14/2024 03/14/2024 ALERT MEDICATION) Elvis Esparza R.N. E.M.T.-P. 1 of 4 Order Sheet cefTRIAXone (Rocephin) IVPB 23:16 03/14/2024 23:20 23:33 1gm/50ml NS1 g diluted in Will Dey D.O. 03/14/2024 03/14/2024 sodium chloride IVPB 0.9 % Denny Moore, Minibag+ 50 mL at 100 mL/hr E.M.T.-P. R.N. (NOW x1) Reason for ordering with alerts: Clinical consideration given --23:16 03/14/2024 Will Dey D.O. OxyCODONE-APAP 5-325 00:16 03/15/2024 00:23 00:24 (Percocet) PO1 tab (NOW x1) Will Dey D.O. 03/15/2024 03/15/2024 Denny Esparza R.N. RJoannaNJoanna Order Comments: 00:16 03/15/2024: (2 tablets to go. one every 6 hours as needed prn pain.) Will Dey D.O. Reason for ordering with alerts: Clinical consideration given --00:16 03/15/2024 Will Dey D.O. OxyCODONE-APAP 5-325 00:40 03/15/2024 00:50 00:51 (Percocet) PO2 tab (HIGH Will Dey D.O. 03/15/2024 03/15/2024 ALERT MEDICATION) Denny Esparza R.N. RJoannaNJoanna Order Comments: 00:40 03/15/2024: (one po q 6 hours prn pain. Dispense #2.) Will Dey D.O. Reason for ordering with alerts: Clinical consideration given --00:40 03/15/2024 Will Dey D.O. LAB ORDERS Order Description Priority Entered Acknowledged Collected Completed CBC w Diff Stat Stat 22:05 03/14/2024 22:07 03/14/2024 23:21 03/14/2024 Gustavo Alejandre Charles Wilbur, R.N. R.Jaiden. CMP Stat Stat 22:05 03/14/2024 22:07 03/14/2024 23:21 03/14/2024 Gustavo Alejandre Charles Wilbur, Clarissa.N. R.Dio Lactate, Serum Stat Stat 22:05 03/14/2024 22:07 03/14/2024 23:21 03/14/2024 Gustavo Alejandre Charles Wilbur, R.N. RJosé Manuel 2 of 4 Order Sheet Urinalysis Stat Stat 22:05 03/14/2024 22:07 03/14/2024 23:21 03/14/2024 Gustavo Alejandre Charles Wilbur, R.N. R.NJoanna Urine Culture [CCL] Stat Stat 23:16 03/14/2024 23:21 03/14/2024 23:22 03/14/2024 Gustavo Alejandre Charles Wilbur, R.N. R.NJoanna DIAGNOSTIC STUDY ORDERS Order Description Priority Entered Acknowledged Completed CT KUB (Kidney stone) Stat Stat 22:06 03/14/2024 22:08 23:22 Will Dey D.O. 03/14/2024 03/14/2024 Denny Esparza R.N. R.NJoanna Order Comments: 22:06 03/14/2024: Status: Not . Will Dey D.O. Reason for Study: Kidney Stones STAFF ORDERS Order Description Priority Entered Acknowledged Collected Completed IV Saline Lock 22:05 03/14/2024 22:08 03/14/2024 23:22 03/14/2024 Gustavo Alejandre Charles Wilbur, R.N. R.NJoanna Vital Signs every 30 22:05 03/14/2024 22:08 03/14/2024 23:22 03/14/2024 minutes Gustavo Alejandre Charles Wilbur, R.N. RJosé Manuel Oxygen titrate to 92% 22:05 03/14/2024 22:08 03/14/2024 23:22 03/14/2024 Gustavo Alejandre Charles Wilbur, R.N. RJoannaNJoanna Intelligence Officer Basic 22:05 03/14/2024 22:08 03/14/2024 23:22 03/14/2024 Gustavo Alejandre Charles Wilbur, R.N. RJoannaNJoanna 3 of 4 Order Sheet Urine Strainer 00:09 03/15/2024 00:23 03/15/2024 00:24 03/15/2024 Gustavo Alejandre Charles Wilbur, R.N. RJosé Manuel [Electronically signed by Will Dey D.O. (03/18/2024 20:31 EST)] 4 of 4 Normal [facility] ED PHYSICIAN CLINICAL REPORT on 03-18-2024 ED PHYSICIAN CLINICAL REPORT Narrative Physician Clinical Narrative [address] [place] [address] [phone] 03/14/2024 Patient: JEANETH CUELLO Sex: Female : 1955 Age: 68y Disposition: Discharge to Home Disposition Decision Time: 00:09 03/15/2024 Departure Time: 00:52 03/15/2024 Measurements Wt: 127.0 kg Initial Vital Sign Measured Time BP MAP HR RR O2Sat ETCO2 Temp Pain GCS RTS 22:01 03/14/2024 202/107 139 98 18 92% NC 98.4 F 9 2L Time Seen: 21:52 03/14/2024. Arrived- By ambulance. Historian- patient. Independent historian- EMS personnel. HISTORY OF PRESENT ILLNESS Chief Complaint: FLANK PAIN. It is described as sharp and it is described as located in the left flank and radiating to the left lower quadrant of the abdomen. This started today 830 PM and is still present. At its maximum, severity described as 9 / 10. When seen in the E.D., severity described as 8 / 10. The patient has had nausea and vomiting. No loss of appetite or diarrhea. No recent travel. Similar symptoms previously. Patient has had similar symptoms several times. Recent medical care: Not recently seen/assessed. 1 of 13 Narrative REVIEW OF SYSTEMS : The patient has had difficulty with urination. No pain with urination or urinary frequency. CONSTITUTIONAL: No fever or chills. The patient has not had weight loss. THROAT: No sore throat. EYES: No blurred vision. CVS: No chest pain. RESPIRATORY: No difficulty breathing. MUSCULOSKELETAL: No joint pain. The patient has had back pain. SKIN: No skin rash. NEUROLOGICAL: No headache. GI: No constipation, black stools or hematemesis. Status: Not . PAST HISTORY See nurses notes. Hypertension Pulmonary Embolism: (Hx of, takes anticoagulants.) Surgeries: Back Surgery Cholecystectomy Medications: unable to obtain home medications Allergies: NOE Inhibitors Beta-Blockers (Beta-Adrenergic Blocking Agts) SOCIAL HISTORY Never smoker. No alcohol use or drug use. ADDITIONAL NOTES The nursing notes have been reviewed. PHYSICAL EXAM 2 of 13 Narrative Appearance: Alert. Oriented X3. Appears to be in pain. Patient in moderate distress. Eyes: Pupils equal, round and reactive to light. ENT: Nose normal. Pharynx normal. Neck: Normal inspection. Neck supple. CVS: Normal heart rate and rhythm. Heart sounds normal. Pulses normal. Respiratory: No respiratory distress. Breath sounds normal. Chest nontender. Abdomen: Soft and nontender. Bowel sounds normal. No organomegaly. No mass. Back: Mild CVA tenderness on the left. Skin: Skin warm and dry. No rash. Extremities: Extremities exhibit normal ROM. No lower extremity edema. Neuro: Oriented X 3. No motor deficit. No sensory deficit. LABS, X-RAYS, AND EKG CT Abdomen - Pelvis: A single urinary calculus is present in the left distal ureter (6 mm). There is mild obstruction. Possible mild wall thickening of the proximal sigmoid colon without evidence of surrounding inflammatory changes or fluid. Differential considerations include neoplasm versus mild diverticulitis or colitis. Lung bases clear. Interpretation time: 23:03 03/14/2024. Laboratory Tests: CBC + DIFF Final RICCARDO: 03/14/2024 22:20:00 EST MsgRcvd: 03/14/2024 22:57 EST Lab Test Result Reference Status Received Comments 03/14/2024 22:57 CBC-COMPLETE CBC + DIFF Final EST BLOOD COUNT 03/14/2024 22:57 WBC 9.5 x 10/UL 4.5 - 10.8 Final EST 03/14/2024 22:57 RBC 4.94 x 10/UL 4.10 - 5.30 Final EST 03/14/2024 22:57 HEMOGLOBIN 14.0 g/dl 12.0 - 16.0 Final EST 3 of 13 Narrative 03/14/2024 22:57 HEMATOCRIT 42.3 % 34.0 - 46.0 Final EST 03/14/2024 22:57 MCV 86 fl 80 - 99 Final EST 03/14/2024 22:57 MCH 28 pg 27 - 33 Final EST 03/14/2024 22:57 MCHC 33 X10 3 32 - 36 Final EST 03/14/2024 22:57 RDW/CV 14.0 % 12.0 - 15.6 Final EST 03/14/2024 22:57 PLATELET 244 x10/UL 150 - 450 Final EST 03/14/2024 22:57 AUTOMATED MPV 7.7 fl 6.6 - 10.5 Final EST DIFFERENTIAL 03/14/2024 22:57 NEUT % 61.5 % 46.0 - 76.0 Final EST 03/14/2024 22:57 LYMPH % 27.2 % 20.0 - 45.0 Final EST 03/14/2024 22:57 MONOS % 9.0 % 0.0 - 10.0 Final EST 03/14/2024 22:57 EO % 2.0 % 0.0 - 7.0 Final EST 03/14/2024 22:57 BASO % 0.3 % 0.0 - 2.0 Final EST 03/14/2024 22:57 Lymph # 2.58 x10/UL 0.80 - 2.80 Final EST 03/14/2024 22:57 Neut # 5.82 x10/UL 1.50 - 7.10 Final EST 4 of 13 Narrative 03/14/2024 22:57 [place] # 0.85 x10/UL 0.20 - 1.00 Final EST 03/14/2024 22:57 EO # 0.19 x10/UL 0.00 - 0.50 Final EST 03/14/2024 22:57 Baso # 0.03 x10/UL 0.00 - 0.10 Final EST 03/14/2024 22:57 MANUAL DIFF N/A New Order EST 03/14/2024 22:57 MORPHOLOGY N/A New Order EST CMP with eGFR Final C (more content not included)... Normal [facility] ED SUPER BILLon 03-18-2024 ED SUPER BILL [facility] [address] [place] [address] [phone] 03/14/2024 Patient: JEANETH CUELLO Sex: Female : 1955 Age: 68y Facility Professional Category Item Description Code Code Quantity Fee Total Nurse/E/M EMERGENCY 929133 1 $0.00 $0.00 DEPT VISIT HIGH SEVERITYFUNCJ (02841-55) Nurse/IV/IM/Infusion s Drip/IVPB initial 539954 1 $0.00 $0.00 (52430) Nurse/IV/IM/Infusion s Hydration 875403 1 $0.00 $0.00 additional hour (91381) Nurse/IV/IM/Infusion s IVP additional [id number] 3 $0.00 $0.00 push (76637) Grand $0.00 Total Providers Will Dey D.O. Chief Complaint FLANK PAIN. 1 of 2 [facility] Principal Diagnosis Ureterolithiasis (single stone) in the left ureter with hydronephrosis and urinary tract infection. Acute urinary tract infection with cystitis and hematuria. ICD-10 Codes N20.1: Calculus of ureter N30.91: Cystitis, unspecified with hematuria 2 of 2 Normal [facility] ED VISIT SUMMARYon ED VISIT SUMMARY Visit Overview Visit Overview [place] [address] [place] [address] [phone] 03/14/2024 Patient: JEANETH CUELLO Sex: Female : 1955 Age: 68y 03/18/2024 08:31 PM EST ED Arrival:21:46 03/14/2024 EST Status:not Recent Travel:no Language:eng Adv Directive:No Isolation Status: Ethnicity:N Fall Risk:risk Infectious Disease Exposure:no Measurements:280.0 lb / 127.0 kg Self-Harm Status:risk Sepsis Screen:negative Chief Complaint:ABDOMINAL PAIN, LEFT-SIDED FLANK PAIN, LOW BACK PAIN, and (Patient given 4 zofran and 50 fentanyl by EMS.) ALLERGIES NOE Inhibitors Beta-Blockers (Beta-Adrenergic Blocking Agts) HOME MEDICATIONS Unable To Obtain PAST MEDICAL HISTORY / PROBLEMS 1 of 3 Visit Overview Hypertension Pulmonary Embolism. Hx of, takes anticoagulants. See nurses notes PAST SURGICAL HISTORY Back Surgery Cholecystectomy SOCIAL HISTORY Smoking status: No Alcohol use: No Drug use: No ED COURSE MEDICATIONS GIVEN IN EMERGENCY DEPARTMENT 22:11 03/14/24 Zofran IVP 4 mg 22:12 03/14/24 IV NS 0.9 % 1000 mL 999 mL/hr 22:14 03/14/24 KetorOLAC (Toradol) IVP 30 mg 23:16 03/14/24 HYDROmorphone (Dilaudid) IVP 0.5 mg cefTRIAXone (Rocephin) IVPB 1gm/50ml NS 1 g diluted in sodium chloride IVPB 0.9 % 23:32 03/14/24 Minibag+ 50 mL 100 mL/hr 00:24 03/15/24 OxyCODONE-APAP 5-325 (Percocet) PO 1 tab 00:51 03/15/24 OxyCODONE-APAP 5-325 (Percocet) PO 2 tab IV SITE INFORMATION INTAKE OUTPUT REASSESMENT (most recent) 22:12 03/14/24. GENERAL / NEURO / PSYCH: Alert. Oriented X 4. Appears in no acute distress. ( pt c/o 10/10 [place] [id number] tonight, consistent with kidney stone pain she has had in the past.). RESPIRATORY: Respirations not labored. Breath sounds within normal limits. SKIN: Skin is warm and dry. 2 of 3 Visit Overview VITAL SIGNS First Vitals Last Vitals Temp 22:03/14/24 98.4 F Temp 00:54 03/15/24 BP 22:03/14/24 202/107 BP 00:54 03/15/24 HR 22:03/14/24 98 HR 00:54 03/15/24 RR 22:03/14/24 18 RR 00:54 03/15/24 16 O2 Sat 22:03/14/24 92% NC 2L O2 Sat 00:54 03/15/24 Pain 22:01 03/14/24 9 Pain 00:54 03/15/24 5 ETCO2 22:01 03/14/24 ETCO2 00:54 03/15/24 GCS 22:01 03/14/24 GCS 00:54 03/15/24 RTS 22:01 03/14/24 RTS 00:54 03/15/24 PROCEDURES NURSING INTERVENTIONS LABS / STUDIES LABS / STUDIES ORDERED CBC w Diff CMP CT KUB (Kidney stone) Lactate, Serum Urinalysis Urine Culture [CCL] CLINICAL IMPRESSION ACUTE URINARY TRACT INFECTION WITH CYSTITIS AND HEMATURIA URETEROLITHIASIS (SINGLE STONE) IN THE LEFT URETER WITH HYDRONEPHROSIS AND URINARY TRACT INFECTION 3 of 3 Normal [facility] ED VITALS FLOW SHEETon 03-18 ED VITALS FLOW SHEET Vitals Vital Sign Flow Sheet [facility] [address] [place] [address] [place] [address] [phone] 03/14/2024 Patient: JEANETH CUELLO Sex: Female : 1955 Age: 68y Measurements Wt: 127.0 kg Measured Time BP MAP HR RR O2Sat ETCO2 Temp Pain GCS RTS 00:54 03/15/2024 16 5 00:20 03/15/2024 202/111 126 90 00:16 03/15/2024 89 94% 00:11 03/15/2024 88 93% 00:09 03/15/2024 193/112 127 87 00:06 03/15/2024 88 96% 00:01 03/15/2024 89 97% 23:56 03/14/2024 88 95% 23:54 03/14/2024 186/79 123 89 23:51 03/14/2024 90 97% 23:46 03/14/2024 90 95% 23:41 03/14/2024 89 94% 23:39 03/14/2024 181/101 121 88 23:36 03/14/2024 90 96% 23:31 03/14/2024 90 94% 1 of 2 Vitals Measured Time BP MAP HR RR O2Sat ETCO2 Temp Pain GCS RTS 23:26 03/14/2024 93 96% 23:24 03/14/2024 178/92 124 90 23:21 03/14/2024 93 89% 23:16 03/14/2024 94 92% 23:11 03/14/2024 95 90% 23:09 03/14/2024 178/97 124 93 23:06 03/14/2024 96 94% 23:01 03/14/2024 96 92% 22:56 03/14/2024 100 93% 22:54 03/14/2024 183/109 133 101 22:21 03/14/2024 91 92% 22:16 03/14/2024 92 94% 22:11 03/14/2024 92 93% 22:09 03/14/2024 233/115 142 94 22:01 03/14/2024 202/107 139 98 18 92% NC 98.4 F 9 2L 2 of 2 Normal [facility] LACTATEon 03-15-2024 Lactate [Moles/Vol] 2.3 mmol/L High 0.4 - 2.0 [facility] Comment on above: Result Comment: LACT ATE 3 HR NOTIFIED TO: _BRITT/ER 03/15/24.0006.TR . . . LACTATE 3 HR NOTIFIED BY: _TRR 03/15/24.0006.TR . . . Performed By: #### 2 [id number] #### [place] [address] CBC + DIFFon 03-14-2024 Baso # 0.03 x10EE3/UL Normal 0.00 - 0.10 [facility] Comment on above: Performed By: #### 2 89819 #### [place] [address] Basophils/100 WBC (Bld) 0.3 % Normal 0.0 - 2.0 [facility] Comment on above: Performed By: #### 2 76604 #### [place] [id number] CBC + DIFF Normal [facility] Comment on above: Result Comment: CBC- COMPLETE BLOOD COUNT Performed By: #### 2 [id number] #### [facility],[address] [place] [address]30 EO # 0.19 x10EE3/UL Normal 0.00 - 0.50 [facility] Comment on above: Performed By: #### 2 [id number] #### [facility],[address] [place] [address] Eosinophils/100 WBC (Bld) 2.0 % Normal 0.0 - 7.0 [facility] Comment on above: Performed By: #### 2 60678 #### [facility],[address] [place] [address] Erythrocyte distribution width (RBC) [Ratio] 14.0 % Normal 12.0 - 15.6 [facility] Comment on above: Performed By: #### 2 68662 #### [facility],[address] [place] [address] Hematocrit (Bld) [Volume fraction] 42.3 % Normal 34.0 - 46.0 [facility] Comment on above: Performed By: #### 2 07510 #### [facility],[address] [place] [address] Hemoglobin (Bld) [Mass/Vol] 14.0 g/dL Normal 12.0 - 16.0 [facility] Comment on above: Performed By: #### 2 94689 #### [facility],[address] [place], [place] [id number] Lymph # 2.58 x10EE3/UL Normal 0.80 - 2.80 [facility] Comment on above: Performed By: #### 2 57082 #### [facility],[address] [place], [place] [id number] Lymphocytes/100 WBC (Bld) 27.2 % Normal 20.0 - 45.0 [facility] Comment on above: Performed By: #### 2 08975 #### [facility],[address] [place] [address] MANUAL DIFF N/A Normal [facility] Comment on above: Performed By: #### 2 76984 #### [facility],[address] [place] [address] MCH (RBC) [Entitic mass] 28 pg Normal 27 - 33 [facility] Comment on above: Performed By: #### 2 60760 #### [facility],[address] [place] [address] MCHC 33 X10 3 Normal 32 - 36 [facility] Comment on above: Performed By: #### 2 79606 #### [facility],[address] [place] [address] MCV (RBC) [Entitic vol] 86 fL Normal 80 - 99 [facility] Comment on above: Performed By: #### 2 88953 #### [facility],[address] [place] [address] [place] # 0.85 x10EE3/UL Normal 0.20 - 1.00 [facility] Comment on above: Performed By: #### 2 72996 #### [facility],[address] [place] [address] MONOS % 9.0 % Normal 0.0 - 10.0 [facility] Comment on above: Performed By: #### 2 03355 #### [facility],[address] [place] [address] Morphology Russell (Bld) [Interp] N/A Normal [facility] Comment on above: Performed By: #### 2 81915 #### [facility],[address] [place] [address] Neut # 5.82 x10EE3/UL Normal 1.50 - 7.10 [facility] Comment on above: Performed By: #### 2 47869 #### [facility],[address] [place] [address] 22725 Neutrophils/100 WBC (Bld) 61.5 % Normal 46.0 - 76.0 [facility] Comment on above: Performed By: #### 2 28286 #### [facility],[address] [place] [address] 36095 PLATELET 244 x10EE3/UL Normal 150 - 450 [facility] Comment on above: Performed By: #### 2 12994 #### [facility],[address] [place] [address] 70395 Platelet mean volume (Bld) [Entitic vol] 7.7 fL Normal 6.6 - 10.5 [facility] Comment on above: Result Comment: AUTO MATED DIFFERENTIAL Performed By: #### 2 95037 #### [facility],[address] [place] [address] 20569 RBC 4.94 x 10EE6/UL Normal 4.10 - 5.30 [facility] Comment on above: Performed By: #### 2 53528 #### [facility],[address] [place] [address] 24846 WBC 9.5 x 10EE3/UL Normal 4.5 - 10.8 [facility] Comment on above: Performed By: #### 2 83151 #### [facility],[address] [place] [address] 76380 CMP with eGFRon 03-14-2024 AGE 68 years Normal [facility] Comment on above: Performed By: #### 2 18150 #### [facility],[address] [place] [address] 96343 Albumin [Mass/Vol] 2.8 g/dL Low 3.4 - 5.0 [facility] Comment on above: Performed By: #### 2 [id number] #### [facility],[address] [place] [address] 04669 Albumin/Globulin [Mass ratio] 0.6 {ratio} Low 0.9 - 1.6 [facility] Comment on above: Performed By: #### 2 29429 #### [facility],[address] [place] [address] 02287 ALK PHOS 88 U/L Normal 46 - 116 [facility] Comment on above: Performed By: #### 2 32416 #### [facility],[address] [place] [address] 37052 ALT [Catalytic activity/Vol] 33 U/L Normal 16 - 63 [facility] Comment on above: Performed By: #### 2 86769 #### [facility],[address] [place] [address] 37071 Anion gap [Moles/Vol] 13 mmol/L Normal 10 - 20 [facility] Comment on above: Performed By: #### 2 09006 #### [facility],[address] [place] [address] 48484 AST [Catalytic activity/Vol] 52 U/L High 13 - 39 [facility] Comment on above: Performed By: #### 2 49768 #### [facility],[address] [place] [address] 09038 B/C RATIO 10 ratio Normal 0 - 30 [facility] Comment on above: Performed By: #### 2 49200 #### [facility],[address] [place] [address] 83153 Bilirubin [Mass/Vol] 0.4 mg/dL Normal 0.2 - 1.0 [facility] Comment on above: Performed By: #### 2 54957 #### [facility],[address] [place] [address] 92226 Calcium [Mass/Vol] 8.5 mg/dL Normal 8.5 - 10.1 [facility] Comment on above: Performed By: #### 2 31422 #### [facility],[address] [place] [address] 72880 Chloride [Moles/Vol] 100 mmol/L Normal 98 - 107 [facility] Comment on above: Performed By: #### 2 32333 #### [facility],[address] [place] [address] 83463 CMP with eGFR Normal [facility] Comment on above: Result Comment: COMP REHENSIVE METABOLIC PANEL Performed By: #### 2 81671 #### [facility],[address] [place] [address]125 CO2 [Moles/Vol] 27.7 mmol/L Normal 21.0 - 32.0 [facility] Comment on above: Performed By: #### 2 [id number] #### [facility] [place],[address] [place] [address] Creatinine [Mass/Vol] 1.28 mg/dL High 0.55 - 1.02 [facility] Comment on above: Performed By: #### 2 06428 #### [facility] [place],[address] [place] [address] eGFR 41 ML/MINUTE Low 60 - 999 [facility] Comment on above: Performed By: #### 2 57938 #### [facility] [place],[address] [place], [place] [id number] eGFR(AA) 50 ML/MINUTE Low 60 - 999 [facility] Comment on above: Result Comment: ACCO RDING TO THE NATIONAL KIDNEY DISEASE EDUCATION PROGRAM(NKDE), A NORMAL eGFR IS A VALUE GREATER THAN OR EQUAL TO 60 ML/MIN/1.73 SQ METERS. CHRONIC KIDNEY DISEASE: <60mL/MIN/1.73 SQ METERS KIDNEY FAILURE: <15mL/MIN/1.73 SQ METERS THIS TEST SHOULD ONLY BE USED FOR PATIENTS 18 YEARS OF AGE AND OLDER. Performed By: #### 2 96778 #### [facility] [place],[address] [place], [place] [id number] Globulin (S) [Mass/Vol] 4.6 g/dL High 1.5 - 3.8 [facility] Comment on above: Performed By: #### 2 42341 #### [facility] [place],[address] [place] [address] 74174 Glucose [Mass/Vol] 246 mg/dL High 74 - 106 [facility] Comment on above: Performed By: #### 2 08532 #### [facility] [place],[address] [place] [address] 20035 Potassium [Moles/Vol] 3.4 mmol/L Low 3.5 - 5.1 [facility] Comment on above: Performed By: #### 2 79790 #### [facility] [place],[address] [place] [address] 09084 Protein [Mass/Vol] 7.4 g/dL Normal 6.4 - 8.2 [facility] Comment on above: Performed By: #### 2 72545 #### [facility] [place],[address] [place] [address] 005[address] Sodium [Moles/Vol] 137 mmol/L Normal 136 - 145 [facility] Comment on above: Performed By: #### 2 53419 #### [facility] [place],[address] [place] [address] 16930 Urea nitrogen [Mass/Vol] 13 mg/dL Normal 7 - 18 [facility] [place] Comment on above: Performed By: #### 2 58917 #### [facility] [place],[address] [place] [address] KUB (KIDNEY STONE PROTOCO L)on 03-14-2024 CT KUB (KIDNEY STONE PROTOCOL) [place] [address] Patient: CUATE JEANETH Kayy Phone#: : 1955 Age: 68 Gender: F Pt. Type: ER Account: [id number] Location: [facility] Ordering: WILL DEY Exam Date: 03/14/2024/22:40 Family Phys: Charge Code: [id number] Physician: [place] Order #: [id number] Dose#: 26.2 PROCEDURE: CT ABDOMEN AND PELVIS WITHOUT CONTRAST COMPARISON: [facility], CT, KUB W/O CON, 12/31/2022, 21:59. INDICATIONS: Kidney stones. TECHNIQUE: After obtaining the patient's consent, CT images of the abdomen and pelvis were created without non-ionic intravenous contrast material. All CT scans at this facility use dose modulation, iterative reconstruction, and/or weight based dosing when appropriate to reduce radiation dose to as low as reasonably achievable. IV CONTRAST: No IV contrast used,0ml TOTAL DOSE: 26.2 CTDIvol(mGy) FINDINGS: KIDNEYS: The right kidney is unremarkable. There is mild left-sided hydronephrosis. A 6 millimeter calculus is present in the distal left ureter approximately 1 centimeter proximal to the ureterovesical junction. ADRENALS: Normal. No mass or enlargement. URINARY BLADDER: Normal. No visible focal wall thickening, lesion, or calculus. LIVER: Fatty changes of the liver are present. There is elongation of the right hepatic lobe unchanged from previous exam. BILIARY: The gallbladder is absent. PANCREAS: Normal. No lesion, fluid collection, ductal dilatation, or atrophy. SPLEEN: Normal. No enlargement or focal lesion. AORTA/VASCULAR: Normal. No aneurysm. RETROPERITONEUM: Normal. No mass or adenopathy. BOWEL/MESENTERY: Sigmoid diverticula are present.. No visible mass, obstruction, or bowel wall thickening. ABDOMINAL WALL: Normal. No mass or hernia. PELVIC NODES: Normal. No adenopathy. PELVIC ORGANS: Normal. No visible mass. Pelvic organs appropriate for patient age. BONES: Normal. No bony lesion or fracture. LUNG BASES: Normal. No visible pulmonary or pleural disease. OTHER: Negative. Continued Report - Page 2 of 2 Patient: JEANETH CUELLO Phone#: : 1955 Age: 68 Gender: F Pt. Type: ER Account: [id number] Location: 052 Ordering: WILL DEY Exam Date: 03/14/2024/22:40 Family Phys: Charge Code: [id number] Physician: [place] Order #: [id number] Dose#: 26.2 CONCLUSION: 1. 6 millimeter calculus is present in the distal left ureter. There is mild left-sided hydronephrosis. 2. Sigmoid diverticulosis. Dictated by: Ivania Beauchamp MD on 03/15/2024 at 9:36 Approved by: Ivania Beauchamp MD on 03/15/2024 at 10:38 Normal [facility] [place] URINALYSISon 03-14-2024 Amorphous NONE Normal [facility] [place] Comment on above: Performed By: #### 2 38362 #### [facility] [place],[address] [place] [address] 21464 Bacteria 4+ Normal [facility] [place] Comment on above: Performed By: #### 2 36920 #### [facility] [place],[address] [place] [address] 88464 Bilirubin Ql (U) Negative Normal NORMAL: NEGATIVE [facility] [place] Comment on above: Performed By: #### 2 19312 #### [facility] [place],[address] [place] [address] 72939 Casts NONE Normal [facility] [place] Comment on above: Performed By: #### 2 68073 #### [facility] [place],[address] [place] [address] 99531 Clarity (U) very cloudy Normal NORMAL: CLEAR [facility] [place] Comment on above: Performed By: #### 2 46866 #### [facility] [place],[address] [place] [address] 69256 Color (U) p.yel Normal NORMAL: YELLOW [facility] [place] Comment on above: Performed By: #### 2 88147 #### [facility] [place],[address] [place] [address] 02455 Crystals LM Nom (Urine sed) NONE Normal [facility] [place] Comment on above: Performed By: #### 2 45392 #### [facility] [place],[address] [place] [address] 87506 Epi Cells FEW Normal [facility] [place] Comment on above: Performed By: #### 2 76593 #### [facility] [place],[address] [place] [address] 14006 Glucose Ql (U) 50 Abnormal NORMAL: NORMAL [facility] [place] Comment on above: Performed By: #### 2 01861 #### [facility] [place],[address] [place] [address] 11783 Hemoglobin Ql (U) 250 Abnormal NORMAL: NEGATIVE [facility] [place] Comment on above: Performed By: #### 2 49490 #### [facility] [place],[address] [place] [address] 13521 Ketone Negative Normal NORMAL: NEGATIVE [facility] [place] Comment on above: Performed By: #### 2 38999 #### [facility] [place],[address] [place] [address] 93697 Leukocytes 25 Abnormal NORMAL: NEGATIVE [facility] [place] Comment on above: Performed By: #### 2 32672 #### [facility] [place],[address] [place] [address] 75443 Mucous NONE Normal [facility] [place] Comment on above: Performed By: #### 2 94938 #### [facility] [place],[address] [place] [address] 48520 Nitrite Ql (U) Negative Normal NORMAL: NEGATIVE [facility] [place] Comment on above: Performed By: #### 2 17500 #### [facility] [place],[address] [place] [address] 05739 pH (U) 6.5 [pH] Normal NORMAL: 5.0-8.0 [facility] [place] Comment on above: Performed By: #### 2 57129 #### [facility] [place],[address] [place] [address] 67857 Protein Ql (U) 30 Abnormal NORMAL: NEGATIVE [facility] [place] Comment on above: Performed By: #### 2 24593 #### [facility] [place],[address] [place] [address] 31522 Rbc TNTC Normal 0-3/hpf [facility] [place] Comment on above: Performed By: #### 2 36958 #### [facility] [place],[address] [place] [address] 76277 Sp [place] 1.015 Normal NORMAL: 1.010-1.030 [facility] [place] Comment on above: Performed By: #### 2 41490 #### [facility] [place],[address] [place] [address] Specimen Type R Normal [facility] Comment on above: Performed By: #### 2 77668 #### [facility] [place],[address] [place] [address] Urinalysis dipstick W Reflex Microscopic panel (U) SEE BELOW Normal [facility] [place] Comment on above: Result Comment: MICR OSCOPIC Performed By: #### 2 25396 #### [facility] [place],[address] [place] [address] Urobilinog NORM Normal NORMAL: NORMAL [facility] [place] Comment on above: Performed By: #### 2 85063 #### [facility] [place],[address] [place] [address] Wbc 16-25 Normal 0-5/hpf [facility] [place] Comment on above: Performed By: #### 2 16655 #### [facility] [place],[address] [place] [address] Yeast NONE Normal [facility] [place] Comment on above: Performed By: #### 2 50690 #### [facility] [place],[address] [place], [place] [address] URINE CULTURE [CCL]on 2024 Bacteria identified Cx Nom (U) URCUL See Results Below See Below CULTURE, URINE NORMAL UROGENITAL STEPHEN 50,000-<100,000 CFU/ml Normal urogenital stephen SOURCE: Urine (Nonspecific) [facility] [address] [place] [address] Mike Tao III, M.D. [id number] Normal [facility] [place] Comment on above: Performed By: #### 2 42778 #### [facility] [place],[address] [place], [place] [id number] CV VENOUS BILATERAL LOWERon 03-01-2024 CV VENOUS BILATERAL LOWER [address] [address] Patient: JEANETH CUELLO Phone#: : 1955 Age: 68 Gender: F Pt. Type: Out Account: [id number] Location: 010 Ordering: [facility] Exam Date: 03/01/2024/14:59 Family Phys: Charge Code: [id number] Physician: [place] Order #: [id number] Dose#: PROCEDURE: VENOUS DOPPLER BILAT LEG COMPARISON: None. INDICATIONS: left leg pain TECHNIQUE: Color duplex Doppler ultrasound evaluation analysis was performed in the usual manner. ENDS DOWN CHECKER: CATHERINE THORNE RVT RCS RISK FACTORS FOR VENOUS DISEASE: Previous DVT or SVT EXAMINATION: RIGHT +Present -Reduced o Absent LEFT SPONT PHASIC AUG REFLUX COMP SPONT PHASIC AUG REFLUX COM + + + o + CFV + + + o + + SFJ + + + + o + FV (prox) + + + o + + FV (mid) + + FV (dist) + + + + o + POP V + + + o + + + + o + T/P TRUNK + + + o + + + + o + PTV + + + o + + + + o + PERONEAL V + + + o + + GSV + GASTROC SOLEAL V ENDS DOWN CHECKER'S NOTES: Calf veins not well visualized. FINDINGS: THROMBI: None visible. COMPRESSIBILITY: Normal. Continued Report - Page 2 of 2 Patient: JEANETH CUELLOJoanna Phone#: : 1955 Age: 68 Gender: F Pt. Type: Out Account: [id number] Location: 010 Ordering: [facility] Exam Date: 03/01/2024/14:59 Family Phys: Charge Code: [id number] Physician: [place] Order #: [id number] Dose#: OTHER: Negative. CONCLUSION: 1. No evidence of deep vein thrombus in either lower extremity Dictated by: Heather Ugalde MD on 03/01/2024 at 16:28 Approved by: Heather Ugalde MD on 03/01/2024 at 16:31 Normal [facility] with eGFRon 12-23-2024 AGE 68 years Normal [facility] [place] Comment on above: Performed By: #### 2 69721 #### [facility] [place],[address] [place] [address] 99809 Anion gap [Moles/Vol] 13 mmol/L Normal 10 - 2 0 mmol/L [facility] Work Phone: Comment on above: Performed By: #### 2 51270 #### [facility] [place],[address] [place] [address] 99614 BMP with eGFR Normal [facility] Comment on above: Result Comment: BASI C METABOLIC PANEL Performed By: #### 2 09545 #### [facility] [place],[address] [place] [address] 20071 Calcium [Mass/Vol] 8.7 mg/dL Normal 8.5 - 10. 1 mg/dL [facility] Work Phone: Comment on above: Performed By: #### 2 72419 #### [facility] [place],[address] [place] [address] 46019 Chloride [Moles/Vol] 102 mmol/L Normal 98 - 10 7 mmol/L [facility] Work Phone: Comment on above: Performed By: #### 2 93779 #### [facility] [place],[address] [place] [address] 78486 CO2 [Moles/Vol] 27.5 mmol/L Normal 21.0 - 32.0 mmol/L [facility] [employer] [facility] [employer] [facility] Work Phone: Comment on above: Performed By: #### 2 63349 #### [facility] [place],[address] [place] [address] 65594 Creatinine [Mass/Vol] 1.06 mg/dL Abnormal 0.55 - 1.02 mg/dL [facility] System[facility].; [facility] Work Phone: Comment on above: Performed By: #### 2 03987 #### [facility] [place],[address] [place] [address] 78841 eGFR 51 ML/MINUTE Low 60 - 999 [facility] Comment on above: Performed By: #### 2 77001 #### [facility] [place],[address] [place] [address] 37861 GFR/1.73 sq M.predicted among non-blacks MDRD (S/P/Bld) [Vol rate/Area] mL/min/{1.73_m2} Normal 60 - 999 [facility] [place] Comment on above: Result Comment: ACCO RDING TO THE NATIONAL KIDNEY DISEASE EDUCATION PROGRAM(NKDE), A NORMAL eGFR IS A VALUE GREATER THAN OR EQUAL TO 60 ML/MIN/1.73 SQ METERS. CHRONIC KIDNEY DISEASE: <60mL/MIN/1.73 SQ METERS KIDNEY FAILURE: <15mL/MIN/1.73 SQ METERS THIS TEST SHOULD ONLY BE USED FOR PATIENTS 18 YEARS OF AGE AND OLDER. Performed By: #### 2 52346 #### [facility] [place],[address] [place] [address] 14333 Glucose [Mass/Vol] 174 mg/dL Abnormal 74 - 106 mg/dL [facility].; [facility]. Work Phone: Comment on above: Performed By: #### 2 10142 #### [facility] [place],[address] [place] [address] 83643 Potassium [Moles/Vol] 3.4 mmol/L Abnormal 3.5 - 5.1 mmol/L [facility].; [facility]. Work Phone: Comment on above: Performed By: #### 2 72688 #### [facility] [place],[address] [place] [address] 66610 Sodium [Moles/Vol] 139 mmol/L Normal 136 - 145 mmol/L [facility].; [facility] Work Phone: Comment on above: Performed By: #### 2 96311 #### [address] [address] Urea nitrogen [Mass/Vol] 13 mg/dL Normal 7 - 18 mg/dL [facility]; [facility], [facility] Work Phone: Comment on above: Performed By: #### 2 99415 #### [place] [id number] CT CHEST (PE PROTOCOL)on CT CHEST (PE PROTOCOL) [place] [address] Patient: JEANETH CUELLO Phone#: : 1955 Age: 68 Gender: F Pt. Type: Out Account: [id number] Location: [facility] Ordering: [facility] Exam Date: 02/23/2024/17:13 Family Phys: Charge Code: [id number] Physician: [place] Order #: [id number] Dose#: 11.50 PROCEDURE: CT CHEST WITH CONTRAST FOR PE COMPARISON: None. INDICATIONS: Acute sadle pulmonary embolism. TECHNIQUE: After obtaining the patient's consent, CT images were obtained with non-ionic intravenous contrast material. Multi-planar images were created to optimize visualization of vascular anatomy with MPR/MIPS and 3D imaging. All CT scans at this facility use dose modulation, iterative reconstruction, and/or weight based dosing when appropriate to reduce radiation dose to as low as reasonably achievable. IV CONTRAST: Omnipaque 350,100ml TOTAL DOSE: 11.50 CTDIvol(mGy) FINDINGS: VASCULATURE: Normal. No visible pulmonary arterial thrombus or attenuation. AORTA: Normal. No aneurysm or dissection. LUNGS: Normal. No visible pulmonary disease. FAHAD: Normal. No mass or adenopathy. MEDIASTINUM: Normal. No mass or adenopathy. CARDIAC: Normal. No enlargement, pericardial thickening, or significant calcification. PLEURA: Normal. No mass or effusion. CHEST WALL: Normal. No mass or axillary adenopathy. LIMITED ABDOMEN: Normal. Limited images of the upper abdomen are unremarkable. BONES: Normal. No bony lesion or fracture. OTHER: Negative. CONCLUSION: 1. There is no evidence of pulmonary embolus. 2. There is no evidence of acute pulmonary abnormality. Dictated by: Ivania Beauchamp MD on 02/23/2024 at 17:44 Continued Report - Page 2 of 2 Patient: JEANETH CUELLOJoanna Phone#: : 1955 Age: 68 Gender: F Pt. Type: Out Account: [id number] Location: [facility] Ordering: [facility] Exam Date: 02/23/2024/17:13 Family Phys: Charge Code: [id number] Physician: [place] Order #: [id number] Dose#: 11.50 Approved by: Ivania Beauchamp MD on 02/23/2024 at 17:56 Normal [facility] [place] Laboratory - Chemistry and C hemistry - challengeon 02-23-2024 GFR/1.73 sq M.predicted among blacks MDRD (S/P/Bld) [Vol rate/Area] mL/min/{1.73_m2} Normal 60 - 999 {ML/MINUTE} [employer]; [employer] Work Phone: GFR/1.73 sq M.predicted MDRD (S/P/Bld) [Vol rate/Area] 51 {ML/MINUTE} Abnormal 60 - 999 {ML/MINUTE} [employer]; [employer] Work Phone: No Panel Informationon 02-22 AGE 68 {years} Normal [employer] [facility] [employer]; [employer] Work Phone: BMP with eGFR Normal [facility]; [facility] Work Phone: Laboratory - Chemistry and C hemistry - challengeon 10-22-2023 Albumin [Mass/Vol] 3.8 g/dL Abnormal 3.9 - 4.9 g/dL [facility]; [facility] Work Phone: ALP [Catalytic activity/Vol] 99 U/L Normal 44 - 121 [iU]/L [facility]; [facility] Work Phone: ALT [Catalytic activity/Vol] 21 U/L Normal 0 - 32 [iU]/L [facility]; [facility] Work Phone: AST [Catalytic activity/Vol] 24 U/L Normal 0 - 40 [iU]/L [facility]; [facility] Work Phone: Bilirubin [Mass/Vol] 0.2 mg/dL Normal 0.0 - 1 .2 mg/dL [facility]; [facility] Work Phone: Calcium [Mass/Vol] 9.1 mg/dL Normal 8.7 - 10. 3 mg/dL [facility]; [facility] Work Phone: Chloride [Moles/Vol] 100 mmol/L Normal 96 - 10 6 mmol/L [facility]; [facility] Work Phone: CO2 [Moles/Vol] 25 mmol/L Normal 20 - 29 mmol/L [facility]; [facility] Work Phone: Creatinine [Mass/Vol] 0.92 mg/dL Normal 0.57 - 1.00 mg/dL [facility]; [facility] Work Phone: GFR/1.73 sq M.predicted among non-blacks MDRD (S/P/Bld) [Vol rate/Area] 67 mL/min/{1.73_m2} Normal [facility]; [facility] Work Phone: Globulin (S) [Mass/Vol] 2.8 g/dL Normal 1.5 - 4.5 g/dL [facility]; [facility] Work Phone: Glucose [Mass/Vol] 228 mg/dL Abnormal 70 - 99 mg/dL [facility]; [facility]. Work Phone: Potassium [Moles/Vol] 3.9 mmol/L Normal 3.5 - 5.2 mmol/L [facility]; [facility]. Work Phone: Protein [Mass/Vol] 6.6 g/dL Normal 6.0 - 8.5 g/dL [facility]; [facility]. Work Phone: Sodium [Moles/Vol] 139 mmol/L Normal 134 - 144 mmol/L [facility]; [facility]. Work Phone: Urea nitrogen [Mass/Vol] 16 mg/dL Normal 8 - 27 mg/dL [facility]; [facility] Work Phone: Urea nitrogen/Creatinine [Mass ratio] 17 mg/mg Normal 12 - 28 [facility]; [facility] Work Phone: Laboratory - Hematology and Cell countson 10-22-2023 HbA1c (Bld) [Mass fraction] 7.5 % Abnormal 4.8 - 5.6 % [facility] CenterNT[facility] [employer]; [facility] Work Phone: CNDSon 03-03-2023 CNDS HNO ID: [id number] Author: Padmini Parsons MD Service: Hospital Medicine Author Type: Physician Type: Discharge Summary Filed: 03/03/2023 1:18 PM Note Text: DISCHARGE SUMMARY PATIENT NAME: Jeaneth Cuello ADMISSION DATE: 02/27/2023 DISCHARGE DATE: 03/03/2023 ATTENDING PHYSICIAN: Padmini Parsons MD Code Status: Full Code Highest Readmission Risk Score: 21 The 30 day readmissions risk score is derived from an internally validated risk model which evaluates patient level characteristics, utilization history, medication orders and lab results up until the day of discharge. Patients with a score of 40 or above are considered highest risk for readmission. Specific patient level drivers will be listed at the bottom of the summary. CONSULTING TEAMS DURING HOSPITALIZATION: Pulmonology: Dr. Maravilla Treatment Team: Attending Provider: Padmini Parsons MD Attending: MR GUILLERMO ONEAL REASON FOR HOSPITALIZATION: Massive saddle pulmonary emboli DIAGNOSIS: Principal Problem: Acute massive pulmonary embolism (HCC) (POA: Unknown) Active Problems: Acute respiratory failure with hypoxia (HCC) (POA: Unknown) Hyperglycemia (POA: Unknown) Obesity, Class III, BMI >= 40 (POA: Unknown) Resolved Problems: * No resolved hospital problems. * OPERATIONS DURING HOSPITALIZATION: None PROCEDURES DURING HOSPITALIZATION: Echocardiogram HOSPITAL COURSE: 67-year-old female with past medical history of hypertension, CKD, morbid obesity. Presenting with shortness of breath on 02/27. 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 She required AVAPS and was unable to tolerate off of it and was admitted to ICU. ICU discussed with patient and tPA was given, followed by heparin drip. Echo was done and showed normal EF. Bilateral lower extremity duplex negative. Her oxygenation status improved and was able to wean to nasal cannula. Transferred to [facility] on 03/01. Heparin drip transition to Eliquis. PT evaluated the patient and deemed her stable for home PT. She was given a prescription for Eliquis and discharged home in stable medical condition with instructions to follow-up with her PCP. Desaturation study was done and patient did not qualify for home oxygen. He was instructed to return to the hospital if having any new or worsening symptoms. Instructed to get outpatient sleep study for possible CHRISTOPHER. Transitions of Care Critical Issues: Started Eliquis LABS AND PROCEDURES PENDING AT DISCHARGE: No pending results. PATIENT CONDITION AT DISCHARGE: Stable DISCHARGE DISPOSITION: Home with Self Care Gen: alert and oriented, NAD, vitals reviewed Head/Neck: NCAT; trachea appears midline, no gross LAD ENT: EOMI grossly, anicteric sclerae; MMM Resp: normal respiratory effort, symmetric chest rise CV: RRR; extremities well perfused GI: non-distended; no TTP Ext: no clubbing, cyanosis or edema Skin: no new rash or lesions on limited visual exam Neuro/MSK: moves all extremities Psych: normal mood; appropriate affect INFORMATION PROVIDED TO PATIENT: Is follow-up with your PCP. Please continue taking medications as prescribed. Please return to the hospital if having any new or worsening symptoms. Please continue to work with physical therapy on strength and mobility. WOUND/SURGICAL SITE CARE: None DIET: Resume pre-hospital diet ACTIVITY: Please continue to work with PT/OT to address mobility. ALLERGIES Allergen Reactions Noe Inhibitors Cough Beta-Blockers (Beta* Shortness of Breath DISCHARGE MEDICATION: Medication List START taking these medications apixaban 5 mg tab(s) Commonly known as: ELIQUIS Take 2 tablets by mouth two times a day for 6 days, THEN 1 tablet two times a day. Start taking on: March 03, 2023 CONTINUE taking these medications amLODIPine 10 mg tablet Commonly known as: NORVASC Where to Get Your Medications These [facility] [place] [address] - [address] [place] [address] - [phone] [place], [place] [id number] Hours: 24-hours apixaban 5 mg tab(s) FUTURE APPOINTMENTS: Follow Up with PCP: Kiana Griffith MD No future appointments. The patient's risk for 30-day readmission is determined using the following contributing factors: Pt variables contributing to increased readmission risk: 29 Most Recent BUN Result 19 Active Medication Orders 9.4 First Resulted Calcium During Admission 1 Previous ED Visit (6 mos.)? 1 Number of Previous ED Visits (6 mos.) 1 Insurance - Medicare 1 Discharge Disposition - Home 1 Active Anticoagulant Plan of care discussed with Provider, RN, Patient I have performed the [id number] and relevant services for a total of >30 minutes. SIGNATURE: PADMINI PARSONS MD DATE: March 03, 2023 TIME: 1:16 PM Normal [facility] THERAPY NTon 03-03-2023 THERAPY NT HNO ID: [id number] Author: Loly Geiger, STONECUTTER ASSISTANT Service: Respiratory Therapy Author Type: Registered Resp Therapist Type: Therapy (PT/OT/Speech/Resp) Filed: 03/03/2023 2:27 PM Note Text: 03/03/23 1115 Home Oxygen Evaluation/Desaturat ion Study $Desaturation Study $Performed Baseline SpO2 at Rest on Room Air 95 SpO2 < or = to 88% at Rest on RA No Patient Currently On Home Oxygen No Patient Ambulated on Room Air? Yes SpO2 < or = to 88% when Ambulating on Room Air No Lowest SpO2 while Ambulating on Room Air 91 Based on Medicare Guidelines Patient Does Not Qualify For home oxygen Normal [facility] CBC panel Auto (Bld)on 03-02 Erythrocyte distribution width (RBC) [Ratio] 14.7 % Normal 11.5-15.0 [facility] Comment on above: Order Comment: Olivia allen Type: BLOOD SPECIMEN Ordering Facility: [facility] Address: [address] [place] [address] Performed By: #### 3 3762-6, HSTROP #### [facility] CLIA [id number] [address] [place] [address] OF [facility] Hematocrit (Bld) [Volume fraction] 36.3 % Normal 36.0-46.0 [facility] Comment on above: Order Comment: Olivia allen Type: BLOOD SPECIMEN Ordering Facility: [facility] Address: [address] [place] [address] Performed By: #### 3 3762-6, HSTROP #### [facility] CLIA [id number] [address] [place] [address] [place] Hemoglobin (Bld) [Mass/Vol] 12.0 g/dL Normal 11.5-15.5 [facility] Comment on above: Order Comment: Speci men Type: BLOOD SPECIMEN Ordering Facility: [facility] Address: [address] [place] [address] Performed By: #### 3 3762-6, HSTROP #### [facility] CLIA [id number] [address] [place] [address] [place] MCH (RBC) [Entitic mass] 28.7 pg Normal 26.0-34.0 [facility] Comment on above: Order Comment: Speci men Type: BLOOD SPECIMEN Ordering Facility: [facility] Address: [address] [place] [address] Performed By: #### 3 3762-6, HSTROP #### [facility] CLIA [id number] [address] [place] [address] [place] MCHC (RBC) [Mass/Vol] 33.1 g/dL Normal 30.5-36.0 [facility] Comment on above: Order Comment: Speci men Type: BLOOD SPECIMEN Ordering Facility: [facility] Address: [address] [place] [address] Performed By: #### 3 3762-6, HSTROP #### [facility] CLIA [id number] [address] [place] [address] [place] MCV (RBC) [Entitic vol] 86.8 fL Normal 80.0-100.0 [facility] Comment on above: Order Comment: Speci men Type: BLOOD SPECIMEN Ordering Facility: [facility] Address: [address] [place] [address] Performed By: #### 3 3762-6, HSTROP #### [facility] CLIA [id number] [address] [place] [address] OF [place] Nucleated RBC (Bld) [#/Vol] 10*3/uL Normal <0.01 [facility] Comment on above: Order Comment: Speci men Type: BLOOD SPECIMEN Ordering Facility: [facility] Address: [address] [place], [place] [address] [id number] Performed By: #### 3 3762-6, HSTROP #### [facility] CLIA [id number] [address] [place], [place] [id number] [place] Platelet mean volume (Bld) [Entitic vol] 11.1 fL Normal 9.0-12.7 [facility] Comment on above: Order Comment: Speci men Type: BLOOD SPECIMEN Ordering Facility: [facility] Address: [address] [facility] [place] [address] Performed By: #### 3 3762-6, HSTROP #### [facility] CLIA [id number] [address] [place] [address] [place] Platelets (Bld) [#/Vol] 223 10*3/uL Normal 150-400 [facility] Comment on above: Order Comment: Speci men Type: BLOOD SPECIMEN Ordering Facility: [facility] Address: [address] [place] [address] Performed By: #### 3 3762-6, HSTROP #### [facility] CLIA [id number] [address] [place] [address] [place] RBC (Bld) [#/Vol] 4.18 10*6/uL Normal 3.90-5.20 [facility] Comment on above: Order Comment: Speci men Type: BLOOD SPECIMEN Ordering Facility: [facility] Address: [address] [facility] [place] [address] Performed By: #### 3 3762-6, HSTROP #### [facility] CLIA [id number] [address] [place] [address] [place] WBC (Bld) [#/Vol] 8.77 10*3/uL Normal 3.70-11.00 [facility] Comment on above: Order Comment: Speci men Type: BLOOD SPECIMEN Ordering Facility: [facility] Address: [address] [place] [address] Performed By: #### 3 3762-6, HSTROP #### [facility] CLIA [id number] [address] [place] [address] [facility] THERAPY NTon 03-02-2023 THERAPY NT HNO ID: [id number] Author: Sravani Ferreira PT Service: Physical Therapy Author Type: Physical Therapist Type: Therapy (PT/OT/Speech/Resp) Filed: 03/02/2023 1:24 PM Note Text: Physical Therapy Evaluation SERVICE DATE: 03/02/2023 SERVICE TIME: 1014 to 1100 ROOM: [place] [address] Recommended Discharge Disposition: Home PT Recommended Discharge Disposition Comments: pt would benefit from continued P.T. to work on endurance. Anticipated Discharge Needs: Family Training, Physical Assist at Home, Supervision at Home Physical Assist at Home for: Cleaning, Laundry, Meals, Safety, Shopping, Transportation Recommended Discharge Equipment: No equipment needs anticipated PT 6 Clicks Score: 18 Precautions/Activity Restrictions: Fall Risk Precaution/Activity Restriction Comments: SOB watch O2 sats. only walks short distances at home Current Hospital Course: medical mgmt of PE Reason for Hospital Admission: SOB Relevant Past Medical History: HTN, ASTHMA Response to Therapy Interventions: Good Participation in Activities, Low Activity Tolerance Assessment Comments: pt became minimally SOB w/ exertion but O2 sats remained in low to mid 90s. pt is motivated and wanted to get up out of bed. Spoke w/ Tye RN concerning pt and he oked therapy .Heparin was being D/C today and now pt on oral anticoagulents. Pt demos dec endurance. Continued Skilled Needs Due to: Functional Mobility/Skill Impairments, Safety Concerns, Continued Monitoring of Vital Signs During Mobility Required Physical Therapy Problem List: Education Deficit, Decreased Activity Tolerance, Functional Mobility Impairment, Balance Impaired Treatment Interventions: Education, Functional Mobility Training, Balance Training, Wheelchair Management and Training Plan for Next Visit: Bed Mobility, Chair Transfer Training, Fall Prevention, Gait Training, Sit to Stand Transfers, Sitting Balance, Standing Balance, Standing Tolerance Home Environment Patient Lives With: Spouse Assistance Available: Part-Time ( works during the day) Entry To Home: No Stairs Number Of Stairs To Bed/Bath: 0 Tub/Shower Type: tub shower but pt does not use sponge bathes Laundry: two steps down does laundry Equipment Owned: Cane, Wheelchair- Manual, Wheelchair- Power, Walker- Wheeled, Grab Bars- Shower Prior Functional Level: Within Functional Limits Prior Functional Level Comments: pt stated that she was Independent w/ ADLS and amb/w/c mobilty . pt stated that she was able to amb w/o a.d. short distances but for longer distances she uses an battery powered w/c. helps her if she would need assist. Subjective: pt stated that it feels good to be out of the bed. CURRENT FUNCTIONAL STATUS: Most recent performance Current Functional Mobility Assist Level Additional Information Rolling Supervision Supine to Sit Supervision Sit to Supine Supervision Scooting Supervision Sit to Stand Minimal Assistance Stand to Sit Minimal Assistance Bed to Chair Minimal Assistance Bed To Chair Transfer Type: Stepping Toilet/Commode Minimal Assistance Gait Minimal Assistance Gait Distance (feet): 10 Stairs Curb Step Car Transfer Blank rodriguez indicate activity not attempted General Deviations/Observati ons: Difficulty changing direction/turning, Carmen decreased, Flexed trunk posture, Lateral sway increased Balance: Static Sitting, Dynamic Sitting, Static Standing, Dynamic Standing Static Sitting Balance: Good Patient able to maintain balance without handhold support, limited postural sway Dynamic Sitting Balance: Good Patient accepts moderate challenge, able to maintain balance while picking up object off floor Static Standing Balance: Fair Patient able to maintain balance with handhold support, may require occasional minimal assistance Dynamic Standing Balance: Fair Patient accepts minimal challenge, able to maintain balance while turning head/trunk Activity Tolerance: Sitting Activity, Standing Activity Sitting Activity: sitting at edge of bed, bed mobility, discussed cirilo LE exercises Sitting Activity Tolerance (in minutes): 10 Standing Activity: amb to bathroom w/o a.d. , commode transfer, sit <-> stand transfers, bed <- > chair Standing Activity Tolerance (in minutes): 20 JH-HLM: 6: Walk 10 steps or more Learning/Educational Needs: Discharge Plan, Family Education/Training, Functional Activities/Mobility, Plan of Care, Precautions, Rehabilitation Techniques and Procedures, Safety Goals for Plan of Care: Patient/Caregiver Goals: Go Home Goals: Patient will demonstrate progress to optimize functional mobility, maximize activity tolerance and endurance to maximize function upon discharge. Rolling with: Modified Independent Transfer Supine to/from Sit with: Modified Independent Transfer Sit to/from Stand with: Supervision Ambulate with: Supervision Distance: 30 Device: No Device Car Transfe (more content not included)... [facility] aPTT PPPon 03-02-2023 aPTT Coag (PPP) [Time] 124.7 s High 23.0-32.4 [facility] Comment on above: Order Comment: Speci alejandro Type: BLOOD SPECIMEN Ordering Facility: [facility] Address: [address] [place] [address] Performed By: #### 3 3762-6, HSTROP #### [facility] CLIA [id number] [address] [place], [place] [address] [place] ALLIED HEALTHon 03-01-2023 ALLIED HEALTH HNO ID: [id number] Author: Catherine Pierce Chaplain Service: Spiritual Care Author Type: Right Of Way Worker Type: Allied Health Filed: 03/01/2023 10:29 AM Note Text: SPIRITUAL CARE PROGRESS NOTE SERVICE DATE: 03/01/2023 SERVICE TIME: 10:10 AM Met with patient while rounding on 7M. Patient stated she was feeling better. Patient indicated she had good support system (social and spiritual) and was thankful for the support from family and friends to help her cope. Right Of Way Worker provided empathetic presence, supportive reflection and encouraged self-care. Patient expressed appreciation for the visit. To contact the Spiritual Care Department: Please call [phone]. SIGNATURE: Chaplain Leslee PATIENT NAME: Jeaneth Cuello DATE: March 01, 2023 TIME: 10:26 AM PAGER/CONTACT #: [phone] Normal [facility] Basic metabolic 2000 panelon 03-01-2023 Anion gap [Moles/Vol] 10 mmol/L Normal 5-16 [facility] Comment on above: Order Comment: Speci men Type: BLOOD SPECIMEN Ordering Facility: [facility] Address: [address] [place] [address] Performed By: #### 3 3762-6, HSTROP #### [facility] CLIA [id number] [address] [place], [place] [address] [place] [facility] Calcium [Mass/Vol] 8.9 mg/dL Normal 8.5-10.5 [facility] Comment on above: Order Comment: Shanthii alejandro Type: BLOOD SPECIMEN Ordering Facility: [facility] Address: [address] [facility] [place] [address] Performed By: #### 3 3762-6, HSTROP #### [facility] CLIA [id number] [address] [place], [place] [address] [place] Chloride [Moles/Vol] 106 mmol/L Normal 98-107 [facility] Comment on above: Order Comment: Speci men Type: BLOOD SPECIMEN Ordering Facility: [facility] Address: [address] [place] [address] Performed By: #### 3 3762-6, HSTROP #### [facility] CLIA [id number] [address] [place] [address] [place] CO2 [Moles/Vol] 22 mmol/L Normal 21-32 [facility] Comment on above: Order Comment: Speci men Type: BLOOD SPECIMEN Ordering Facility: [facility] Address: [address] [place] [address] Performed By: #### 3 3762-6, HSTROP #### [facility] CLIA [id number] [address] [place] [address] [place] Creatinine [Mass/Vol] 0.86 mg/dL Normal 0.51-0.95 [facility] Comment on above: Order Comment: Speci men Type: BLOOD SPECIMEN Ordering Facility: [facility] Address: [address] [place] [address] Result Comment: Ingrid ents receiving either N-Acetylcysteine (NAC) or Metamizole prior to venipuncture, may have falsely depressed results. Performed By: #### 3 3762-6, HSTROP #### [facility] CLIA [id number] [address] [place] [address] [place] Creatinine and Glomerular filtration rate.predicted panel (S/P/Bld) 73 mL/min/1.73m??? Normal >=60 [facility] Comment on above: Order Comment: Speci men Type: BLOOD SPECIMEN Ordering Facility: [facility] Address: [address] [place] [address] Result Comment: Francesca mated Glomerular Filtration Rate (eGFR) is calculated using the 2020 CKD-EPI creatinine equation. This equation utilizes serum creatinine, sex, and age as parameters. The creatinine assay has traceable calibration to isotope dilution-mass spectrometry. Refer to KDIGO guidelines for clinical interpretation. In patients with unstable renal function, e.g. those with acute kidney injury, the eGFR may not accurately reflect actual GFR. Performed By: #### 3 3762-6, HSTROP #### [facility] CLIA [id number] [address] [place], [place] [address] [place] Glucose [Mass/Vol] 132 mg/dL High 70-100 [facility] Comment on above: Order Comment: Olivia allen Type: BLOOD SPECIMEN Ordering Facility: [facility] Address: [address] [place] [address] Result Comment: The [place] Diabetes Association (ADA) provides guidance for cutoff values for fasting glucose and random glucose. The ADA defines fasting as no caloric intake for at least 8 hours. Fasting plasma glucose results between 100 to 125 mg/dL indicate increased risk for diabetes (prediabetes). Fasting plasma glucose results greater than or equal to 126 mg/dL meet the criteria for diagnosis of diabetes. In the absence of unequivocal hyperglycemia, results should be confirmed by repeat testing. In a patient with classic symptoms of hyperglycemia or hyperglycemic crisis, random plasma glucose results greater than or equal to 200 mg/dL meet the criteria for diagnosis of diabetes. Reference: Standards of Medical Care in Diabetes 2016, [place] [employer] Association. Diabetes Care. 2016.39(Suppl 1). Results may be falsely elevated after the administration of Sulfapyridine. Results may be falsely depressed after the administration of Sulfasalazine. Performed By: #### 3 3762-6, HSTROP #### [facility] CLIA [id number] [address] [place] [address] [place] Potassium [Moles/Vol] Normal [facility] Comment on above: Order Comment: Olivia allen Type: BLOOD SPECIMEN Ordering Facility: [facility] Address: [address] [place] [id number] Result Comment: Unab le to assay due to interference from hemolysis. Suggest reorder as clinically indicated. Performed By: #### 3 3762-6, HSTROP #### [facility] CLIA [id number] [address] [place] [address] [place] Sodium [Moles/Vol] 138 mmol/L Normal 136-145 [facility] Comment on above: Order Comment: Speci men Type: BLOOD SPECIMEN Ordering Facility: [facility] Address: [address] [place] [address] Performed By: #### 3 3762-6, HSTROP #### [facility] CLIA [id number] [address] [place] [address] [place] Urea nitrogen [Mass/Vol] 29 mg/dL High 09-25 [facility] Comment on above: Order Comment: Speci men Type: BLOOD SPECIMEN Ordering Facility: [facility] Address: [address] [place] [address] Performed By: #### 3 3762-6, HSTROP #### [facility] CLIA [id number] [address] [place] [address] [place] CBC panel Auto (Bld)on 03-01 Erythrocyte distribution width (RBC) [Ratio] 14.6 % Normal 11.5-15.0 [facility] Comment on above: Order Comment: Speci men Type: BLOOD SPECIMEN Ordering Facility: [facility] Address: [address] [place] [address] Performed By: #### 3 3762-6, HSTROP #### [facility] CLIA [id number] [address] [place] [address] [place] Hematocrit (Bld) [Volume fraction] 37.6 % Normal 36.0-46.0 [facility] Comment on above: Order Comment: Speci men Type: BLOOD SPECIMEN Ordering Facility: [facility] Address: [address] [place] [address] Performed By: #### 3 3762-6, HSTROP #### [facility] CLIA [id number] [address] [place], [place] [address] [place] Hemoglobin (Bld) [Mass/Vol] 12.4 g/dL Normal 11.5-15.5 [facility] Comment on above: Order Comment: Speci men Type: BLOOD SPECIMEN Ordering Facility: [facility] Address: [address] [place] [address] Performed By: #### 3 3762-6, HSTROP #### [facility] CLIA [id number] [address] [place] [address] [place] MCH (RBC) [Entitic mass] 28.8 pg Normal 26.0-34.0 [facility] Comment on above: Order Comment: Speci men Type: BLOOD SPECIMEN Ordering Facility: [facility] Address: [address] [place] [address] Performed By: #### 3 3762-6, HSTROP #### [facility] CLIA [id number] [address] [place] [address] [place] MCHC (RBC) [Mass/Vol] 33.0 g/dL Normal 30.5-36.0 [facility] Comment on above: Order Comment: Speci men Type: BLOOD SPECIMEN Ordering Facility: [facility] Address: [address] [place] [address] Performed By: #### 3 3762-6, HSTROP #### [facility] CLIA [id number] [address] [place] [address] [place] MCV (RBC) [Entitic vol] 87.2 fL Normal 80.0-100.0 [facility] Comment on above: Order Comment: Speci men Type: BLOOD SPECIMEN Ordering Facility: [facility] Address: [address] [place] [address] Performed By: #### 3 3762-6, HSTROP #### [facility] CLIA [id number] [address] [place] [address] [place] Nucleated RBC (Bld) [#/Vol] 10*3/uL Normal <0.01 [facility] Comment on above: Order Comment: Speci men Type: BLOOD SPECIMEN Ordering Facility: [facility] Address: [address] [place] [address] Performed By: #### 3 3762-6, HSTROP #### [facility] CLIA [id number] [address] [place] [address] [place] Platelet mean volume (Bld) [Entitic vol] 11.4 fL Normal 9.0-12.7 [facility] Comment on above: Order Comment: Speci men Type: BLOOD SPECIMEN Ordering Facility: [facility] Address: [address] [place] [address] Performed By: #### 3 3762-6, HSTROP #### [facility] CLIA [id number] [address] [place] [address] [place] Platelets (Bld) [#/Vol] 234 10*3/uL Normal 150-400 [facility] Comment on above: Order Comment: Speci men Type: BLOOD SPECIMEN Ordering Facility: [facility] Address: [address] [place] [address] Performed By: #### 3 3762-6, HSTROP #### [facility] CLIA [id number] [address] [place] [address] [place] RBC (Bld) [#/Vol] 4.31 10*6/uL Normal 3.90-5.20 [facility] Comment on above: Order Comment: Speci men Type: BLOOD SPECIMEN Ordering Facility: [facility] Address: [address] [place] [address] Performed By: #### 3 3762-6, HSTROP #### [facility] CLIA [id number] [address] [place] [address] [place] WBC (Bld) [#/Vol] 13.42 10*3/uL High 3.70-11.00 [facility] Comment on above: Order Comment: Speci men Type: BLOOD SPECIMEN Ordering Facility: [facility] Address: [address] [place] [address] Performed By: #### 3 3762-6, HSTROP #### [facility] CLIA [id number] [address] [place], [place] [address] [place] POTASSIUM BLDon 03-01-2023 Potassium [Moles/Vol] 3.5 mmol/L Normal 3.5-5.1 [facility] Comment on above: Order Comment: Speci men Type: BLOOD SPECIMEN Ordering Facility: [facility] Address: [address] [place] [address] Performed By: #### 3 3762-6, HSTROP #### [facility] CLIA [id number] [address] [place] [address] aPTT PPPon 03-01-2023 aPTT Coag (PPP) [Time] 35.6 s High 23.0-32.4 [facility] Comment on above: Order Comment: Speci men Type: BLOOD SPECIMEN Ordering Facility: [facility] Address: [address] [place] [address] Performed By: #### 3 3762-6, HSTROP #### [facility] CLIA [id number] [address] [place] [address] aPTT Coag (PPP) [Time] 71.8 s High 23.0-32.4 [facility] Comment on above: Order Comment: Speci men Type: BLOOD SPECIMEN Ordering Facility: [facility] Address: [address] [place] [address] Performed By: #### 3 3762-6, HSTROP #### [facility] CLIA [id number] [address] [place] [address] aPTT Coag (PPP) [Time] 47.0 s High 23.0-32.4 [facility] Comment on above: Order Comment: Speci men Type: BLOOD SPECIMEN Ordering Facility: [facility] Address: [address] [place] [address] Performed By: #### 3 3762-6, HSTROP #### [facility] CLIA [id number] [address] [place] [address] ALLIED HEALTHon 02-28-2023 ALLIED HEALTH HNO ID: [id number] Author: Sunshine Suazo RT(R) Service: Radiology Author Type: Technologist Type: Allied Health Filed: 02/28/2023 10:03 AM Note Text: Summary: port. chest Radiology Service Progress Note PATIENT NAME: Jeaneth Cuello DATE OF SERVICE: February 28, 2023 TIME: 10:02 AM PATIENT IDENTITY VERIFICATION COMPLETED USING TWO (2) IDENTIFIERS: Name and Date of confirmed by patient verbally and Name and Date of confirmed by identification band. FALL SCREENING: Has the patient had 2 falls in the last year or 1 fall with injury or currently using an Ambulatory Assistive Device (Walker, Cane, Wheelchair, Crutches, etc.)? Inpatient: Screened on floor PATIENT GENDER DATA: Female. status: : No status: NO. PATIENT RELEVANT IMPLANT DATA REVIEWED: Not Applicable RADIOLOGY DEPARTMENT: General X-ray: Exam(s) Completed: Chest X-Ray PERIPHERAL IV DATA: Not applicable SIGNED BY: RT Rich(R) February 28, 2023 10:02 AM [facility] CASE MGT IN REJI 2022 CASE MGT IN REJI HNO ID: [id number] Author: Donald Spivey LSW Service: ? Author Type: Roast Master Type: Care Mgt Initial Assessment Filed: 02/28/2023 1:45 PM Note Text: CARE MANAGEMENT: ASSESSMENT AND DISCHARGE PLAN SERVICE DATE: February 28, 2023 SERVICE TIME: 1:41 PM PCP: Kiana Griffith MD Primary Contact: No emergency contact information on file. Admission Status: Inpatient Insurance Provider: [facility] Discharge Planning requested by: Per Department Practice Potential Transition Plans To Be Determined Advance Directives Current Advance Directive: None Lead Pressman Attempted to Assist with AD Completion: Yes Action: Education Provided;Patient Unwilling Current Living Arrangements and Support Lives with: Spouse/significant other Type of Residence: Private Residence (Apartment or Condo) Does the patient have to climb stairs at home?: No Support: Children, Jehovah'S Witness/linda community, Friends/neighbors, Spouse/significant other How do you manage to accomplish the following: Independent: Medication Management Needs Assistance: Ambulation;Bathe/Sravani wer;Dress;Meals/Meal Prep;Going to the bathroom;Transportat ion to appointments/communi ty Current Services/Equipment Current Post-Acute Service(s): Oxygen Current Post-Acute Service(s) Provider: may need home 02 Discharge Planning Patient Goal(s): Be able to go home [place] of Choice Explained: [place] of Choice Given: Yes Level of Care Discussed: Other: See Comment (DME) Are you interested in bedside delivery of your medications? Yes Discharge Planning Participant(s): Patient;Spouse/signi ficant other Patient/Family Comments: Home Caregiver Assessment: Caregiver is ready, willing and able to meet the patient's needs as recommended by the inter-professional team: Yes Name of Caregiver: Spouse Transport at Discharge: Transportation Arrangements: Car Needs Prior to Discharge: Post-Acute Discharge Plan: Pt is admitted from home due to shortness of breath and PE. On IV abx, heparin gtt. Currently on 02 at 4 L Met with pt and , Florencio ([phone]) at bedside. Pt is fully alert and oriented. Pt lives with her spouse; can ambulate on her own for a short distance, but mostly use her electric w/chair. She needs assistance with most of her ADLS. Does not use home 02. If she needs home 02, she has no preference with any DME company . DME lists provided and pt is agreeable with [place] should she need any home 02. Pt has PCP, Aicha Vanegas CNP, and has [employer]. Current plan is home with possible home 02. Children will transport. Pt needs desat study if home 02 required. CM will continue to monitor and f/up for any home hoing needs, SIGNATURE: EWA Dupont PATIENT NAME: Jeaneth Cuello DATE: February 28, 2023 TIME: 1:41 PM CONTACT #: [phone] [facility] CBC panel Auto (Bld)on 02-28 Erythrocyte distribution width (RBC) [Ratio] 14.4 % Normal 11.5-15.0 [facility] Comment on above: Order Comment: Speci men Type: BLOOD SPECIMEN Ordering Facility: [facility] Address: [address] [place] [address] Performed By: #### 5 7021-8 #### [facility] CLIA [id number] [address] [place] [address] [place] Hematocrit (Bld) [Volume fraction] 43.1 % Normal 36.0-46.0 [facility] Comment on above: Order Comment: Speci men Type: BLOOD SPECIMEN Ordering Facility: [facility] Address: [address] [place] [address] Performed By: #### 5 7021-8 #### [facility] CLIA [id number] [address] [place] [address] [place] Hemoglobin (Bld) [Mass/Vol] 14.5 g/dL Normal 11.5-15.5 [facility] Comment on above: Order Comment: Speci men Type: BLOOD SPECIMEN Ordering Facility: [facility] Address: [address] [place] [address] Performed By: #### 5 7021-8 #### [facility] CLIA [id number] [address] [place] [address] [place] MCH (RBC) [Entitic mass] 29.0 pg Normal 26.0-34.0 [facility] Comment on above: Order Comment: Speci men Type: BLOOD SPECIMEN Ordering Facility: [facility] Address: [address] [place] [address] Performed By: #### 5 7021-8 #### [facility] CLIA [id number] [address] [place] [address] [place] MCHC (RBC) [Mass/Vol] 33.6 g/dL Normal 30.5-36.0 [facility] Comment on above: Order Comment: Speci men Type: BLOOD SPECIMEN Ordering Facility: [facility] Address: [address] [place] [address] Performed By: #### 5 7021-8 #### [facility] CLIA [id number] [address] [place] [address] [place] MCV (RBC) [Entitic vol] 86.2 fL Normal 80.0-100.0 [facility] Comment on above: Order Comment: Speci men Type: BLOOD SPECIMEN Ordering Facility: [facility] Address: [address] [place] [address] Performed By: #### 5 7021-8 #### [facility] CLIA [id number] [address] [place] [address] [place] Nucleated RBC (Bld) [#/Vol] 10*3/uL Normal <0.01 [facility] Comment on above: Order Comment: Speci men Type: BLOOD SPECIMEN Ordering Facility: [facility] Address: [address] [place] [address] Performed By: #### 5 7021-8 #### [facility] CLIA [id number] [address] [place] [address] [place] Platelet mean volume (Bld) [Entitic vol] 11.4 fL Normal 9.0-12.7 [facility] Comment on above: Order Comment: Speci men Type: BLOOD SPECIMEN Ordering Facility: [facility] Address: [address] [place] [address] Performed By: #### 5 7021-8 #### [facility] CLIA [id number] [address] [place] [address] [place] Platelets (Bld) [#/Vol] 198 10*3/uL Normal 150-400 [facility] Comment on above: Order Comment: Speci men Type: BLOOD SPECIMEN Ordering Facility: [facility] Address: [address] [place] [address] Performed By: #### 5 7021-8 #### [facility] CLIA [id number] [address] [place] [address] [place] RBC (Bld) [#/Vol] 5.00 10*6/uL Normal 3.90-5.20 [facility] Comment on above: Order Comment: Speci men Type: BLOOD SPECIMEN Ordering Facility: [facility] Address: [address] [place] [address] Performed By: #### 5 7021-8 #### [facility] CLIA [id number] [address] [place], [place] [address] [place] WBC (Bld) [#/Vol] 9.47 10*3/uL Normal 3.70-11.00 [facility] Comment on above: Order Comment: Speci men Type: BLOOD SPECIMEN Ordering Facility: [facility] Address: [address] [place] [address] Performed By: #### 5 7021-8 #### [facility] CLIA [id number] [address] [place], [place] [address] [place] [facility] [place] Comprehensive metabolic 2000 panelon 02-28-2023 Albumin [Mass/Vol] 3.0 g/dL Low 3.2-5.0 [facility] Comment on above: Order Comment: Speci men Type: BLOOD SPECIMENOrdering Facility: [facility] Address: [address] [place] [address] Performed By: #### 2 4323-8, 25543-6, 2777-1 ####[facility] [id number] [place] [id number] [place] ALP [Catalytic activity/Vol] 90 U/L Normal 45-117 [facility] Comment on above: Order Comment: Speci men Type: BLOOD SPECIMENOrdering Facility: [facility] Address: [address] [place] [address] Performed By: #### 2 4323-8, 60871-8, 2777-1 ####[facility] [id number] [place] [id number] [place] ALT [Catalytic activity/Vol] 22 U/L Normal 13-61 [facility] Comment on above: Order Comment: Speci men Type: BLOOD SPECIMENOrdering Facility: [facility] Address: [address] [place] [address] Result Comment: Resu lts may be falsely depressed after the administration of Sulfasalazine and/or Sulfapyridine. Performed By: #### 2 4323-8, , 2776-03 ####[facility] [id number] [place] [id number] [place] Anion gap [Moles/Vol] 13 mmol/L Normal 5-16 [facility] Comment on above: Order Comment: Speci men Type: BLOOD SPECIMENOrdering Facility: [facility] Address: [address] [place] [address] Performed By: #### 2 4323-8, , 2776-03 ####[facility] [id number] [place] [id number] [place] AST [Catalytic activity/Vol] 31 U/L Normal 8-34 [facility] Comment on above: Order Comment: Speci men Type: BLOOD SPECIMENOrdering Facility: [facility] Address: [address] [place] [address] Result Comment: Resu lts may be falsely depressed after the administration of Sulfasalazine and/or Sulfapyridine. Performed By: #### 2 4323-8, , 2776-03 ####[facility] [id number] [place] [id number] [place] Bilirubin [Mass/Vol] 0.4 mg/dL Normal 0.2-1.0 [facility] Comment on above: Order Comment: Speci men Type: BLOOD SPECIMENOrdering Facility: [facility] Address: [address] [place] [address] Performed By: #### 2 4323-8, , 2776-03 ####[facility] [id number] [place] [id number] [place] Calcium [Mass/Vol] 9.1 mg/dL Normal 8.5-10.5 [facility] Comment on above: Order Comment: Speci men Type: BLOOD SPECIMENOrdering Facility: [facility] Address: [address] [place] [address] Performed By: #### 2 4323-8, 01714-9, 2776-03 ####[facility] [id number] [place] [id number] [place] Chloride [Moles/Vol] 106 mmol/L Normal 98-107 [facility] Comment on above: Order Comment: Speci men Type: BLOOD SPECIMENOrdering Facility: [facility] Address: [address] [place] [address] Performed By: #### 2 4323-8, , 2776-03 ####[facility] [id number] [place] [id number] [place] CO2 [Moles/Vol] 21 mmol/L Normal 21-32 [facility] Comment on above: Order Comment: Speci men Type: BLOOD SPECIMENOrdering Facility: [facility] Address: [address] [place] [address] Performed By: #### 2 4323-8, , 2776-03 ####[facility] [id number] [place] [id number] [place] Creatinine [Mass/Vol] 0.81 mg/dL Normal 0.51-0.95 [facility] Comment on above: Order Comment: Speci men Type: BLOOD SPECIMENOrdering Facility: [facility] Address: [address] [place] [address] Result Comment: Ingrid ents receiving either N-Acetylcysteine (NAC) or Metamizole prior to venipuncture, may have falsely depressed results. Performed By: #### 2 4323-8, , 2776-03 ####[facility] [id number] [place] [id number] [place] Creatinine and Glomerular filtration rate.predicted panel (S/P/Bld) 79 mL/min/1.73m??? Normal >=60 [facility] Comment on above: Order Comment: Speci men Type: BLOOD SPECIMENOrdering Facility: [facility] Address: [address] [place] [address] Result Comment: Francesca mated Glomerular Filtration Rate (eGFR) is calculated using the 2020 CKD-EPI creatinine equation. This equation utilizes serum creatinine, sex, and age as parameters. The creatinine assay has traceable calibration to isotope dilution-mass spectrometry. Refer to KDIGO guidelines for clinical interpretation. In patients with unstable renal function, e.g. those with acute kidney injury, the eGFR may not accurately reflect actual GFR. Performed By: #### 2 4323-8, , 2776-03 ####[facility] [id number] [place] [id number] [place] Glucose [Mass/Vol] 203 mg/dL High 70-100 [facility] Comment on above: Order Comment: Olivia allen Type: BLOOD SPECIMENOrdering Facility: [facility] Address: [address] [place] [address] Result Comment: The [place] Diabetes Association (ADA) provides guidance for cutoff values for fasting glucose and random glucose. The ADA defines fasting as no caloric intake for at least 8 hours. Fasting plasma glucose results between 100 to 125 mg/dL indicate increased risk for diabetes (prediabetes). Fasting plasma glucose results greater than or equal to 126 mg/dL meet the criteria for diagnosis of diabetes. In the absence of unequivocal hyperglycemia, results should be confirmed by repeat testing. In a patient with classic symptoms of hyperglycemia or hyperglycemic crisis, random plasma glucose results greater than or equal to 200 mg/dL meet the criteria for diagnosis of diabetes. Reference: Standards of Medical Care in Diabetes 2016, [place] [employer] Association. Diabetes Care. 2016.39(Suppl 1). Results may be falsely elevated after the administration of Sulfapyridine. Results may be falsely depressed after the administration of Sulfasalazine. Performed By: #### 2 4323-8, , 2776-03 ####[facility] [id number] [place] [id number] [place] Potassium [Moles/Vol] 3.6 mmol/L Normal 3.5-5.1 [facility] Comment on above: Order Comment: Olivia allen Type: BLOOD SPECIMENOrdering Facility: [facility] Address: [address] [place] [address] Performed By: #### 2 4323-8, , 2776-03 ####[facility]ORYCLIA [id number] [place] [address] [place] Protein [Mass/Vol] 7.0 g/dL Normal 6.0-8.5 [facility] Comment on above: Order Comment: Speci alejandro Type: BLOOD SPECIMENOrdering Facility: [facility] Address: [address] [place] [address] Performed By: #### 2 4323-8, , 2776-03 ####[facility]ORY[facility] [id number] [place] [id number] [place] Sodium [Moles/Vol] 140 mmol/L Normal 136-145 [facility] Comment on above: Order Comment: Speci men Type: BLOOD SPECIMENOrdering Facility: [facility] Address: [address] [place] [address] Performed By: #### 2 4323-8, , 2776-03 ####[facility]ORY[facility]IA [id number] [place] [id number] [place] Urea nitrogen [Mass/Vol] 25 mg/dL Normal 7-26 [facility] Comment on above: Order Comment: Shanthii men Type: BLOOD SPECIMENOrdering Facility: [facility] Address: [address] [place] [address] Performed By: #### 2 4323-8, , 2776-03 ####[facility]ORYCLIA [id number] [place] [id number] [place] ECHOon 02-28-2023 Echocardiography Echocardiography Report: Transthoracic Echo [facility] Date of service: 02/28/2023 7:29:05 AM Ordering physician: MARK HEREDIA Indication: Suspected pulmonary hypertension Technologist: Lashonda Schmitz RDCS Interpreting physician: Uziel Aldridge MD PATIENT: Name: JEANETH CUELLO : 1955 Age: 67 years Gender: F History of hypertension. Primary rhythm: sinus. Height: 160.00 cm BSA: 2.34 m Weight: 122.92 kg BMI: 48.0 kg/m Heart rate 78 bpm Blood pressure 125/66 mmHg Technically difficult exam due to suboptimal positioning. Color Doppler was utilized to interrogate the cardiac valves assessed and spectral Doppler was utilized to determine the flow velocities and pressure gradients reported in this exam. MEASUREMENTS: Value Indexed Normal Max aortic dimension 3.1 cm Ao < 3.8 Left atrial volume 47 ml (biplane A-L) 20 ml/m Luis <= 34 LV ID (diastole) 3.7 cm (2D) 1.58 cm/m LV ID (systole) 2.5 cm (2D) 1.07 cm/m IVS, leaflet tips 1.2 cm (2D) Posterior wall thickness 1.2 cm (2D) Left ventricular mass 147 g (2D) 63 g/m LV stroke volume 65 ml (2D biplane) LVOT stroke volume 71 ml 32 ml/m LV end diastolic volume 88 ml (2D biplane) 37.7 ml/m 29<=EDVi<62 LV end systolic volume 23 ml (2D biplane) 10.1 ml/m Ejection Fraction 73 % (2D biplane) EF > 54 FINDINGS: LEFT VENTRICLE The left ventricle is normal in size. There is mild concentric left ventricular hypertrophy. Left ventricular systolic function is normal. Grade I left ventricular diastolic dysfunction. Mitral annular lateral E/e': 14.7. Mitral annular septal E/e': 15.8. Definity contrast used for endocardial border detection. Wall Motion: All scored segments are normal. RIGHT VENTRICLE The right ventricle is mildly dilated. Right ventricular systolic function is low normal. RV systolic tissue Doppler velocity is 12.4 cm/s. Tricuspid annular displacement is 2.0 cm. Estimated right ventricular systolic pressure is likely underestimated due to a weak or incomplete tricuspid regurgitation signal and is, at least, 24 mmHg consistent with normal pulmonary artery pressures. Estimated right atrial pressure is 15 mmHg based on IVC assessment. LEFT ATRIUM The left atrial cavity is normal in size. RIGHT ATRIUM The right atrial cavity is normal in size. Inferior Vena Cava: The inferior vena cava appears dilated measuring 2.4 cm. The vessel decreases less than 50 percent with inspiration. MITRAL VALVE There is no mitral stenosis. There is trace mitral valve regurgitation. The peak mitral valve gradient is 6 mmHg. The mean mitral valve gradient is 2 mmHg. The pressure half time is 67 msec. The peak mitral E/A ratio is 0.63. The average mitral E/e' ratio is 15.3. The mitral flow deceleration time is 230 msec. TRICUSPID VALVE There is no tricuspid stenosis. There is trace tricuspid valve regurgitation. AORTIC VALVE There is no aortic valve stenosis. There is trace aortic valve regurgitation. Tricuspid aortic valve. The peak gradient is 8 mmHg (peak velocity = 144.0 cm/s). The mean gradient is 5 mmHg. The LVOT mean velocity is 77.9 cm/s. The LVOT diameter is 2.0 cm. The aortic VTI is 27.2 cm. The mean velocity in the aortic valve is 96.3 cm/s. The dimensionless valve index is 0.83. AV area is 2.62 cm (1.12 cm /m ) by continuity, VTI. The LVOT stroke volume index is 32 ml/m . PULMONIC VALVE There is no pulmonic stenosis. There is trace pulmonic valve regurgitation. The peak gradient is 4 mmHg. AORTA The visualized aorta is normal in size. Measurements - Sinus: 3.1 cm. Mid ascending aorta 2.8 cm. PERICARDIUM There is a trivial pericardial effusion. CONCLUSIONS: - Technically difficult exam due to suboptimal positioning. - Exam indication: Suspected pulmonary hypertension - The left ventricle is normal in size. There is mild concentric left ventricular hypertrophy. Left ventricular systolic function is normal. EF = 73 5% (2D biplane) Definity contrast used for endocardial border detection. Grade I left ventricular diastolic dysfunction. - The right ventricle is mildly dilated. Right ventricular systolic function is low normal. Addendum 1. See computer-generated data above 2. Normal right and left ventricular systolic function left ventricular ejection fraction 65% 5 3. Moderate concentric left ventricular pressure free (the septum was not sampled in this study) 4. Stage I likely diastolic abnormality 5. Mild mitral regurgitation - The patient has not had a prior CC echocardiographic exam for comparison. * * * Final * * * CC [employer] [facility] : [id number]. [id number] ynamicsSISUID Normal [facility] Fibrinogen PPP-mCncon 2022 Fibrinogen Coag (PPP) [Mass/Vol] 54 mg/dL Low 200-400 [facility] Comment on above: Order Comment: Olivia allen Type: BLOOD SPECIMEN Ordering Facility: [facility] Address: [address] [place] [address] Performed By: #### 5 7021-8 #### [facility] CLIA [id number] [address] [place] [address] [place] HbA1c (Bld)on 02-28-2023 Average glucose Estimated from glycated hemoglobin (Bld) [Mass/Vol] 134 mg/dL Normal [facility] Comment on above: Order Comment: Olivia allen Type: BLOOD SPECIMEN Ordering Facility: [facility] Address: [address] [place] [address] Result Comment: eAG: (Estimated average glucose) is a calculated value from HgbA1c and is liability claims representative of the average blood glucose level in the last 2-3 month period. Performed By: #### 3 3762-6, HSTROP #### [facility] CLIA [id number] [address] [place] [address] [place] HbA1c (Bld) [Mass fraction] 6.3 % High 4.3-5.6 [facility] Comment on above: Order Comment: Olivia allen Type: BLOOD SPECIMEN Ordering Facility: [facility] Address: [address] [place] [address] Result Comment: Khush[place]o [place] Diabetes Association guidelines indicate that patients with HgbA1c in the range 5.7-6.4% are at increased risk for development of diabetes, and intervention by lifestyle modification may be beneficial. HgbA1c greater or equal to 6.5% is considered diagnostic of diabetes. Performed By: #### 3 3762-6, HSTROP #### [facility] CLIA [id number] [address] [place] [address] [place] Magnesium SerPl-mCncon 02-28 Magnesium [Mass/Vol] 1.9 mg/dL Normal 1.6-2.6 [facility] Comment on above: Order Comment: Olivia allen Type: BLOOD SPECIMENOrdering Facility: [facility] Address: [address] [place] [address] Performed By: #### 2 4323-8, 99298-0, 2777-1 ####[facility] [id number] [place] [id number] [place] PT panel Coag (PPP)on 2022 INR Coag (PPP) [Relative time] 1.7 {INR} High 0.9-1.3 [facility] Comment on above: Order Comment: Olivia allen Type: BLOOD SPECIMEN Ordering Facility: [facility] Address: [place] [address] Result Comment: Bette min K Antagonist (VKA) Therapeutic Range: INR 2 to 3 (Target INR of 2.5) Note: For patients treated with VKA drugs, such as warfarin, the [place] [employer] 2012 Guideline recommends a therapeutic INR range of 2 to 3 (target INR of 2.5). This recommendation includes high-risk patients with antiphospholipid syndrome with previous arterial or venous thromboembolism, current-generation mechanical or bioprosthetic aortic heart valve replacement. Note: Patients with mechanical aortic valve replacement and additional risk factors for thromboembolic events (atrial fibrillation, previous thromboembolism, LV dysfunction, hypercoagulable conditions) or an older generation mechanical AVR (i.e., ball in-Cage) or any mechanical MVR should have a INR therapeutic range of 2.5 to 3.5 (target INR of 3). Enrique GH, et al. Chest 2012, 141:7S-47S Sivakumar RA, et al. [facility] 2017, 70: 252-289 Performed By: #### 5 7021-8 #### [facility] CLIA [id number] [address] [place], [place] [address] [place] PT Coag (PPP) [Time] 18.0 s High 9.7-13.0 [facility] Comment on above: Order Comment: Olivia allen Type: BLOOD SPECIMEN Ordering Facility: [facility] Address: [place] [id number] Performed By: #### 5 7021-8 #### [facility] CLIA [id number] [address] [place], [place] [address] [place] Phosphate SerPl-mCncon 02-28 Phosphate [Mass/Vol] 3.3 mg/dL Normal 2.5-4.9 [facility] Comment on above: Order Comment: Speci men Type: BLOOD SPECIMENOrdering Facility: [facility] Address: [address] [place], [place] [address] Result Comment: Elev ated m-protein (paraprotein) levels in the serum may be exhibited in patients with monoclonal gammopathies, causing falsely elevated inorganic phosphorus results. Performed By: #### 2 4323-8, 62989-4, 2777-1 ####[facility] [id number] [address] THERAPY NTon 02-28-2023 THERAPY NT HNO ID: [id number] Author: Evelin Borrero, STONECUTTER ASSISTANT Service: Respiratory Therapy Author Type: Registered Resp Therapist Type: Therapy (PT/OT/Speech/Resp) Filed: 02/28/2023 8:09 AM Note Text: PT taken off bipap and placed on 4l NCA per Dr Maravilla. Normal [facility] US LEG VEIN DVT CIRILO VAS LABo n 02-28-2023 US LEG VEIN DVT CIRILO VAS LAB Non-Invasive Vascular Laboratory [facility] Lower Extremity Venous Duplex Bilateral/Complete Date of service/time: 02/28/2023 9:41:05 AM Name: JEANETH CUELLO Date of : 1955 Age: 67 years Gender: F Clinical Indication Pulmonary embolism. TECHNIQUE -------- A venous duplex ultrasound examination was performed, including grayscale imaging with compression maneuvers and color Doppler and spectral Doppler examination with augmentation maneuvers and response to respiration of the below mentioned veins. FINDINGS -------- RIGHT SIDE Distal external iliac vein Doppler: normal flow. Compression: normal. Common femoral vein Doppler: normal flow. Compression: normal. Femoral vein Doppler: normal flow. Compression: normal. Popliteal vein Doppler: normal flow. Compression: normal. Posterior tibial veins Compression: normal. Peroneal veins Compression: normal. Great saphenous vein Compression: normal. Small saphenous vein Compression: normal. Soleal vein Compression: normal. Gastrocnemius vein Compression: normal. Profunda vein Doppler: normal flow. Compression: normal. LEFT SIDE Distal external iliac vein Doppler: normal flow. Compression: normal. Common femoral vein Doppler: normal flow. Compression: normal. Femoral vein Doppler: normal flow. Compression: normal. Popliteal vein Doppler: normal flow. Compression: normal. Posterior tibial veins Compression: normal. Peroneal veins Compression: normal. Great saphenous vein Compression: normal. Small saphenous vein Doppler: absent flow. Compression: abnormal. Soleal vein Compression: normal. Gastrocnemius vein Compression: normal. Profunda vein Doppler: normal flow. Compression: normal. IMPRESSION Technically difficult exam due to patient's body habitus. RIGHT SIDE - DEEP VEINS Negative for acute deep vein thrombosis. RIGHT SIDE - SUPERFICIAL VEINS Negative for superficial thrombophlebitis in the great saphenous vein and small saphenous vein. LEFT SIDE - DEEP VEINS Negative for acute deep vein thrombosis. LEFT SIDE - SUPERFICIAL VEINS Acute superficial thrombophlebitis in the small saphenous vein. Negative for superficial thrombophlebitis in the great saphenous vein. Technologist: Ghazal Helton Ordering physician: MARK HEREDIA Interpreting physician: Mark Cuello MD Final CC [employer] [facility] Image : [id number] [email or web address] See Link below for Image Normal [facility] XR CHEST 1V FRONTAL PORTon 1 XR CHEST 1V FRONTAL PORT * * *Final Report* * * DATE OF EXAM: Feb 28 2023 9:54AM RHX [id number] - XR CHEST 1V FRONTAL PORT / PROCEDURE REASON: Shortness of breath * * * * Physician Interpretation * * * * EXAMINATION: CHEST RADIOGRAPH (PORTABLE SINGLE VIEW AP) Exam Date/Time: 02/28/2023 9:54 AM CLINICAL HISTORY: Dyspnea MQ: XCPR_5 Comparison: Chest x-ray 02/19/2023, CT chest 02/19/2023 RESULT: Lines, tubes, and devices: Monitoring leads overlie the chest. Lungs and pleura: Interval progression of opacities at the right lung base. The left lung is clear. No vascular congestion, large pleural effusion, or pneumothorax. Cardiomediastinal silhouette: Stable cardiomediastinal silhouette. Other: Degenerative changes of the shoulders and spine IMPRESSION: Interval progression of opacities at the right lung base reflecting areas of pulmonary infarction versus a developing infectious process. Master Police Detective: TONY Transcribe Date/Time: Feb 28 2023 10:03A Dictated by : SRINI DALY, This examination was interpreted and the report reviewed and electronically signed by: SRINI DALY, on Feb 28 2023 10:06AM EST [id number] CN Normal [facility] aPTT PPPon 02-28-2023 aPTT Coag (PPP) [Time] 92.0 s High 23.0-32.4 [facility] Comment on above: Order Comment: Speci alejandro Type: BLOOD SPECIMEN Ordering Facility: [facility] Address: [address] [place] [address] Performed By: #### 3 3762-6, HSTROP #### [facility] CLIA [id number] [address] [place] [address] [place] aPTT Coag (PPP) [Time] 37.2 s High 23.0-32.4 [facility] Comment on above: Order Comment: Olivia allen Type: BLOOD SPECIMEN Ordering Facility: [facility] Address: [address] [place] [address] Performed By: #### 3 3762-6, HSTROP #### [facility] CLIA [id number] [address] [place] [address] [place] aPTT Coag (PPP) [Time] 53.0 s High 23.0-32.4 [facility] Comment on above: Order Comment: Shanthii men Type: BLOOD SPECIMENOrdering Facility: [facility] Address: [address] [place] [address] Performed By: #### 1 4979-9 ####[facility] [id number] [place] [address] [place] aPTT Coag (PPP) [Time] 108.7 s High 23.0-32.4 [facility] Comment on above: Order Comment: Speci men Type: BLOOD SPECIMEN Ordering Facility: [facility] Address: [address] [place] [address] Performed By: #### 5 7021-8 #### [facility] CLIA [id number] [address] [place] [address] [place] AST SerPl-cCncon 02-27-2023 AST [Catalytic activity/Vol] 38 U/L High 8-34 [facility] Comment on above: Order Comment: Speci men Type: VENOUS BLOOD SPECIMEN Ordering Facility: [facility] Address: [address] [place] [address] Result Comment: Resu lts may be falsely depressed after the administration of Sulfasalazine and/or Sulfapyridine. Performed By: #### 2 4344-4 #### [facility] CLIA [id number] [address] [place] [address] [place] CBC W Auto Differential pane l (Bld)on 02-27-2023 Basophils (Bld) [#/Vol] 10*3/uL Normal <0.11 [facility] Comment on above: Order Comment: Speci men Type: BLOOD SPECIMEN Ordering Facility: [facility] Address: [address] [place] [address] Performed By: #### 5 7021-8 #### [facility] CLIA [id number] [address] [place] [address] [place] Basophils/100 WBC (Bld) 0.2 % Normal [facility] Comment on above: Order Comment: Speci men Type: BLOOD SPECIMEN Ordering Facility: [facility] Address: [address] [place] [address] Performed By: #### 5 7021-8 #### [facility] CLIA [id number] [address] [place] [address] Differential cell count method Nom (Bld) Auto Normal [facility] Comment on above: Order Comment: Speci men Type: BLOOD SPECIMEN Ordering Facility: [facility] Address: [address] [facility] [place] [id number] Performed By: #### 5 7021-8 #### [facility] CLIA [id number] [address] [place] [address] [place] Eosinophils (Bld) [#/Vol] 10*3/uL Normal <0.46 [facility] Comment on above: Order Comment: Speci men Type: BLOOD SPECIMEN Ordering Facility: [facility] Address: [address] [place] [address] Performed By: #### 5 7021-8 #### [facility] CLIA [id number] [address] [place] [address] [place] Eosinophils/100 WBC (Bld) 0.0 % Normal [facility] Comment on above: Order Comment: Speci men Type: BLOOD SPECIMEN Ordering Facility: [facility] Address: [address] [place] [address] Performed By: #### 5 7021-8 #### [facility] CLIA [id number] [address] [place] [address] [place] Erythrocyte distribution width (RBC) [Ratio] 14.4 % Normal 11.5-15.0 [facility] Comment on above: Order Comment: Speci men Type: BLOOD SPECIMEN Ordering Facility: [facility] Address: [address] [place] [address] Performed By: #### 5 7021-8 #### [facility] CLIA [id number] [address] [place] [address] [place] Hematocrit (Bld) [Volume fraction] 46.0 % Normal 36.0-46.0 [facility] Comment on above: Order Comment: Speci men Type: BLOOD SPECIMEN Ordering Facility: [facility] Address: [address] [place] [address] Performed By: #### 5 7021-8 #### [facility] CLIA [id number] [address] [place] [address] [place] Hemoglobin (Bld) [Mass/Vol] 15.4 g/dL Normal 11.5-15.5 [facility] Comment on above: Order Comment: Speci men Type: BLOOD SPECIMEN Ordering Facility: [facility] Address: [address] [place] [address] Performed By: #### 5 7021-8 #### [facility] CLIA [id number] [address] [place] [address] [place] Immature granulocytes (Bld) [#/Vol] 0.09 10*3/uL Normal <0.10 [facility] Comment on above: Order Comment: Speci men Type: BLOOD SPECIMEN Ordering Facility: [facility] Address: [address] [place] [address] Performed By: #### 5 7021-8 #### [facility] CLIA [id number] [address] [place] [address] [place] Immature granulocytes/100 WBC (Bld) 0.8 % Normal [facility] Comment on above: Order Comment: Speci men Type: BLOOD SPECIMEN Ordering Facility: [facility] Address: [address] [place] [address] Performed By: #### 5 7021-8 #### [facility] CLIA [id number] [address] [place] [address] [place] Lymphocytes (Bld) [#/Vol] 0.64 10*3/uL Low 1.00-4.00 [facility] Comment on above: Order Comment: Speci men Type: BLOOD SPECIMEN Ordering Facility: [facility] Address: [address] [place] [address] Performed By: #### 5 7021-8 #### [facility] CLIA [id number] [address] [place] [address] [place] Lymphocytes/100 WBC (Bld) 5.7 % Normal [facility] Comment on above: Order Comment: Speci men Type: BLOOD SPECIMEN Ordering Facility: [facility] Address: [address] [place] [address] Performed By: #### 5 7021-8 #### [facility] CLIA [id number] [address] [place] [address] [place] MCH (RBC) [Entitic mass] 28.6 pg Normal 26.0-34.0 [facility] Comment on above: Order Comment: Speci men Type: BLOOD SPECIMEN Ordering Facility: [facility] Address: [address] [place] [address] Performed By: #### 5 7021-8 #### [facility] CLIA [id number] [address] [place] [address] [place] MCHC (RBC) [Mass/Vol] 33.5 g/dL Normal 30.5-36.0 [facility] Comment on above: Order Comment: Speci men Type: BLOOD SPECIMEN Ordering Facility: [facility] Address: [address] [place] [address] Performed By: #### 5 7021-8 #### [facility] CLIA [id number] [address] [place] [address] [place] MCV (RBC) [Entitic vol] 85.3 fL Normal 80.0-100.0 [facility] Comment on above: Order Comment: Speci men Type: BLOOD SPECIMEN Ordering Facility: [facility] Address: [address] [place] [address] Performed By: #### 5 7021-8 #### [facility] CLIA [id number] [address] [place] [address] [place] Monocytes (Bld) [#/Vol] 0.18 10*3/uL Normal <0.87 [facility] Comment on above: Order Comment: Speci men Type: BLOOD SPECIMEN Ordering Facility: [facility] Address: [address] [place] [address] Performed By: #### 5 7021-8 #### [facility] CLIA [id number] [address] [place] [address] [place] Monocytes/100 WBC (Bld) 1.6 % Normal [facility] Comment on above: Order Comment: Speci men Type: BLOOD SPECIMEN Ordering Facility: [facility] Address: [address] [place] [address] Performed By: #### 5 7021-8 #### [facility] CLIA [id number] [address] [place] [address] [place] Neutrophils (Bld) [#/Vol] 10.26 10*3/uL High 1.45-7.50 [facility] Comment on above: Order Comment: Speci men Type: BLOOD SPECIMEN Ordering Facility: [facility] Address: [address] [place] [address] Performed By: #### 5 7021-8 #### [facility] CLIA [id number] [address] [place] [address] [place] Neutrophils/100 WBC (Bld) 91.7 % Normal [facility] Comment on above: Order Comment: Speci men Type: BLOOD SPECIMEN Ordering Facility: [facility] Address: [address] [place] [address] Performed By: #### 5 7021-8 #### [facility] CLIA [id number] [address] [place] [address] [place] Nucleated RBC (Bld) [#/Vol] 10*3/uL Normal <0.01 [facility] Comment on above: Order Comment: Speci men Type: BLOOD SPECIMEN Ordering Facility: [facility] Address: [address] [place] [address] Performed By: #### 5 7021-8 #### [facility] CLIA [id number] [address] [place] [address] [place] Nucleated RBC/100 WBC (Bld) [Ratio] 0.0 /100 WBC Normal [facility] Comment on above: Order Comment: Speci men Type: BLOOD SPECIMEN Ordering Facility: [facility] Address: [address] [place] [address] Performed By: #### 5 7021-8 #### [facility] CLIA [id number] [address] [place] [address] [place] Platelet mean volume (Bld) [Entitic vol] 11.3 fL Normal 9.0-12.7 [facility] Comment on above: Order Comment: Speci men Type: BLOOD SPECIMEN Ordering Facility: [facility] Address: [address] [place] [address] Performed By: #### 5 7021-8 #### [facility] CLIA [id number] [address] [place] [address] [place] Platelets (Bld) [#/Vol] 213 10*3/uL Normal 150-400 [facility] Comment on above: Order Comment: Speci men Type: BLOOD SPECIMEN Ordering Facility: [facility] Address: [address] [place] [address] Performed By: #### 5 7021-8 #### [facility] CLIA [id number] [address] [place] [address] [place] RBC (Bld) [#/Vol] 5.39 10*6/uL High 3.90-5.20 [facility] Comment on above: Order Comment: Speci men Type: BLOOD SPECIMEN Ordering Facility: [facility] Address: [address] [place] [address] Performed By: #### 5 7021-8 #### [facility] CLIA [id number] [address] [place] [address] [place] WBC (Bld) [#/Vol] 11.19 10*3/uL High 3.70-11.00 [facility] Comment on above: Order Comment: Speci men Type: BLOOD SPECIMEN Ordering Facility: [facility] Address: [address] [place] [address] Performed By: #### 5 7021-8 #### [facility] CLIA [id number] [address] [place] [address] [place] Basophils (Bld) [#/Vol] 0.04 10*3/uL Normal <0.11 [facility] Comment on above: Order Comment: Speci men Type: BLOOD SPECIMEN Ordering Facility: [facility] Address: [address] [place] [address] Performed By: #### 5 7021-8 #### [facility] CLIA [id number] [address] [place] [address] [place] Basophils/100 WBC (Bld) 0.3 % Normal [facility] Comment on above: Order Comment: Speci men Type: BLOOD SPECIMEN Ordering Facility: [facility] Address: [address] [place] [address] Performed By: #### 5 7021-8 #### [facility] CLIA [id number] [address] [place] [address] [place] Differential cell count method Nom (Bld) Auto Normal [facility] Comment on above: Order Comment: Speci men Type: BLOOD SPECIMEN Ordering Facility: [facility] Address: [address] [place] [address] Performed By: #### 5 7021-8 #### [facility] CLIA [id number] [address] [place] [address] [place] Eosinophils (Bld) [#/Vol] 10*3/uL Normal <0.46 [facility] Comment on above: Order Comment: Speci men Type: BLOOD SPECIMEN Ordering Facility: [facility] Address: [address] [place] [address] Performed By: #### 5 7021-8 #### [facility] CLIA [id number] [address] [place] [address] [place] Eosinophils/100 WBC (Bld) 0.2 % Normal [facility] Comment on above: Order Comment: Speci men Type: BLOOD SPECIMEN Ordering Facility: [facility] Address: [address] [place] [address] Performed By: #### 5 7021-8 #### [facility] CLIA [id number] [address] [place] [address] [place] Erythrocyte distribution width (RBC) [Ratio] 14.4 % Normal 11.5-15.0 [facility] Comment on above: Order Comment: Speci men Type: BLOOD SPECIMEN Ordering Facility: [facility] Address: [address] [place] [address] Performed By: #### 5 7021-8 #### [facility] CLIA [id number] [address] [place] [address] [place] Hematocrit (Bld) [Volume fraction] 45.1 % Normal 36.0-46.0 [facility] Comment on above: Order Comment: Speci men Type: BLOOD SPECIMEN Ordering Facility: [facility] Address: [address] [place] [address] Performed By: #### 5 7021-8 #### [facility] CLIA [id number] [address] [place] [address] [place] Hemoglobin (Bld) [Mass/Vol] 15.1 g/dL Normal 11.5-15.5 [facility] Comment on above: Order Comment: Speci men Type: BLOOD SPECIMEN Ordering Facility: [facility] Address: [address] [place] [address] Performed By: #### 5 7021-8 #### [facility] CLIA [id number] [address] [place] [address] [place] Immature granulocytes (Bld) [#/Vol] 0.06 10*3/uL Normal <0.10 [facility] Comment on above: Order Comment: Speci men Type: BLOOD SPECIMEN Ordering Facility: [facility] Address: [address] [place] [address] Performed By: #### 5 7021-8 #### [facility] CLIA [id number] [address] [place] [address] [place] Immature granulocytes/100 WBC (Bld) 0.5 % Normal [facility] Comment on above: Order Comment: Speci men Type: BLOOD SPECIMEN Ordering Facility: [facility] Address: [address] [place] [address] Performed By: #### 5 7021-8 #### [facility] CLIA [id number] [address] [place] [address] [place] Lymphocytes (Bld) [#/Vol] 1.52 10*3/uL Normal 1.00-4.00 [facility] Comment on above: Order Comment: Speci men Type: BLOOD SPECIMEN Ordering Facility: [facility] Address: [address] [place] [address] Performed By: #### 5 7021-8 #### [facility] CLIA [id number] [address] [place] [address] [place] Lymphocytes/100 WBC (Bld) 12.6 % Normal [facility] Comment on above: Order Comment: Speci men Type: BLOOD SPECIMEN Ordering Facility: [facility] Address: [address] [place] [address] Performed By: #### 5 7021-8 #### [facility] CLIA [id number] [address] [place] [address] [place] MCH (RBC) [Entitic mass] 29.0 pg Normal 26.0-34.0 [facility] Comment on above: Order Comment: Speci men Type: BLOOD SPECIMEN Ordering Facility: [facility] Address: [address] [place] [address] Performed By: #### 5 7021-8 #### [facility] CLIA [id number] [address] [place] [address] [place] MCHC (RBC) [Mass/Vol] 33.5 g/dL Normal 30.5-36.0 [facility] Comment on above: Order Comment: Speci men Type: BLOOD SPECIMEN Ordering Facility: [facility] Address: [address] [place] [address] Performed By: #### 5 7021-8 #### [facility] CLIA [id number] [address] [place] [address] [place] MCV (RBC) [Entitic vol] 86.6 fL Normal 80.0-100.0 [facility] Comment on above: Order Comment: Speci men Type: BLOOD SPECIMEN Ordering Facility: [facility] Address: [address] [place] [address] Performed By: #### 5 7021-8 #### [facility] CLIA [id number] [address] [place] [address] [place] Monocytes (Bld) [#/Vol] 0.96 10*3/uL High <0.87 [facility] Comment on above: Order Comment: Speci men Type: BLOOD SPECIMEN Ordering Facility: [facility] Address: [address] [facility] [place] [place] [address] Performed By: #### 5 7021-8 #### [facility] CLIA [id number] [address] [place], [place] [address] [place] Monocytes/100 WBC (Bld) 8.0 % Normal [facility] Comment on above: Order Comment: Speci men Type: BLOOD SPECIMEN Ordering Facility: [facility] Address: [address] [place] [address] Performed By: #### 5 7021-8 #### [facility] CLIA [id number] [address] [place] [address] [place] Neutrophils (Bld) [#/Vol] 9.44 10*3/uL High 1.45-7.50 [facility] Comment on above: Order Comment: Speci men Type: BLOOD SPECIMEN Ordering Facility: [facility] Address: [address] [place] [address] Performed By: #### 5 7021-8 #### [facility] CLIA [id number] [address] [place] [address] [place] Neutrophils/100 WBC (Bld) 78.4 % Normal [facility] Comment on above: Order Comment: Speci men Type: BLOOD SPECIMEN Ordering Facility: [facility] Address: [address] [facility] [place] [address] Performed By: #### 5 7021-8 #### [facility] CLIA [id number] [address] [place] [address] [place] Nucleated RBC (Bld) [#/Vol] 10*3/uL Normal <0.01 [facility] Comment on above: Order Comment: Speci men Type: BLOOD SPECIMEN Ordering Facility: [facility] Address: [address] [place] [address] Performed By: #### 5 7021-8 #### [facility] CLIA [id number] [address] [place] [address] [place] Nucleated RBC/100 WBC (Bld) [Ratio] 0.0 /100 WBC Normal [facility] Comment on above: Order Comment: Speci men Type: BLOOD SPECIMEN Ordering Facility: [facility] Address: [address] [place] [address] Performed By: #### 5 7021-8 #### [facility] CLIA [id number] [address] [place], [place] [id number] [place] Platelet mean volume (Bld) [Entitic vol] 11.1 fL Normal 9.0-12.7 [facility] Comment on above: Order Comment: Speci men Type: BLOOD SPECIMEN Ordering Facility: [facility] Address: [address] [place] [address] Performed By: #### 5 7021-8 #### [facility] CLIA [id number] [address] [place], [place] [address] [place] Platelets (Bld) [#/Vol] 227 10*3/uL Normal 150-400 [facility] Comment on above: Order Comment: Speci men Type: BLOOD SPECIMEN Ordering Facility: [facility] Address: [address] [place] [address] Performed By: #### 5 7021-8 #### [facility] CLIA [id number] [address] [place] [address] [place] RBC (Bld) [#/Vol] 5.21 10*6/uL High 3.90-5.20 [facility] Comment on above: Order Comment: Speci men Type: BLOOD SPECIMEN Ordering Facility: [facility] Address: [address] [place] [address] Performed By: #### 5 7021-8 #### [facility] CLIA [id number] [address] [place], [place] [address] [place] WBC (Bld) [#/Vol] 12.04 10*3/uL High 3.70-11.00 [facility] Comment on above: Order Comment: Speci men Type: BLOOD SPECIMEN Ordering Facility: [facility] Address: [address] [place] [address] Performed By: #### 5 7021-8 #### [facility] CLIA [id number] [address] [place] [address] [place] CT CHEST W IVCON PEon 2022 CT CHEST W IVCON PE * * *Final Report* * * DATE OF EXAM: Feb 27 2023 3:11PM [facility] 0540 - CT CHEST W IVCON PE / PROCEDURE REASON: Pulmonary embolism (PE) suspected, high prob * * * * Physician Interpretation * * * * EXAMINATION: CHEST CT WITH CONTRAST (PULMONARY EMBOLISM PROTOCOL) CLINICAL HISTORY: Shortness of breath Technique: Spiral CT acquisition of the chest from the thoracic inlet to the upper abdomen following IV contrast. Axial 1 and 3 mm thick slices plus coronal and sagittal reformatted images. MQ: CTCP_5 Contrast: 85 mL Visipaque [address] Radiation dose: Integrated Dose-length product (DLP) for this visit = 688.70 mGy*cm CT Dose Reduction Employed: Automated exposure control(AEC) and iterative recon Comparison: Same day chest radiograph RESULT: Limitations: Motion artifacts. Evaluation for thromboembolic disease: Saddle pulmonary embolism involving the bilateral main pulmonary artery branches and extending variably in the bilateral lobar, segmental, and subsegmental branches particularly in the bilateral lower and right upper lobar through subsegmental branches. There is right heart strain manifested by right ventricular enlargement and pulmonary artery trunk dilatation. Lines, tubes, and devices: None. Lung parenchyma and airways: Scattered right lower lobe opacities.. No suspicious pulmonary nodule. The central airways are patent. Pleural space: No pleural effusion. No pleural thickening. Lower neck, lymph nodes, and mediastinum: The imaged thyroid gland is normal. No lymphadenopathy in the supraclavicular, axillary, mediastinal, or hilar regions. Heart, pericardium, and thoracic vessels: The thoracic aorta is normal in caliber. Right heart strain as above discussed. Subtle coronary artery atherosclerotic calcifications are noted, although the study is not optimized for coronary assessment. No pericardial effusion or thickening. Bones and soft tissues: Degenerative spondylosis. Upper abdomen: No abnormality in the imaged upper abdomen. Purchaser (topogram) images: No additional findings. IMPRESSION: * Extensive bilateral pulmonary embolisms with right heart strain as detailed above. * Scattered small right lower lung opacities may represent evolving infarcts or associated infection. CRITICAL TEST/RESULTS: CRITICAL TEST/RESULTS: Acuity: Critical Finding: Pulmonary embolus Communication: Communicated with PATRIC BENDER on 02/27/2023 3:15 PM via verbal communication. --END OF FINDING-- Master Police Detective: TONY Transcribe Date/Time: Feb 27 2023 3:12P Dictated by : LYNN PEÑA MD This examination was interpreted and the report reviewed and electronically signed by: LYNN PEÑA MD on Feb 27 2023 3:33PM EST [id number] CN CRITICAL!! Invalid Interpretation Code [facility] Comprehensive metabolic 2000 panelon 02-27-2023 Albumin [Mass/Vol] 3.3 g/dL Normal 3.2-5.0 [facility] Comment on above: Order Comment: Speci alejandro Type: BLOOD SPECIMEN Ordering Facility: [facility] Address: [address] [place] [address] Performed By: #### 2 4323-8, #### [facility] CLIA [id number] [address] [place] [address] [place] ALP [Catalytic activity/Vol] 96 U/L Normal 45-117 [facility] Comment on above: Order Comment: Speci men Type: BLOOD SPECIMEN Ordering Facility: [facility] Address: [address] [place] [address] Performed By: #### 2 4323-8, #### [facility] CLIA [id number] [address] [place] [address] [place] ALT [Catalytic activity/Vol] 24 U/L Normal 13-61 [facility] Comment on above: Order Comment: Speci men Type: BLOOD SPECIMEN Ordering Facility: [facility] Address: [address] [place] [address] Result Comment: Resu lts may be falsely depressed after the administration of Sulfasalazine and/or Sulfapyridine. Performed By: #### 2 4323-8, #### [facility] CLIA [id number] [address] [place] [address] [place] Anion gap [Moles/Vol] 11 mmol/L Normal 5-16 [facility] Comment on above: Order Comment: Speci men Type: BLOOD SPECIMEN Ordering Facility: [facility] Address: [address] [place] [address] Performed By: #### 2 4323-8, #### [facility] CLIA [id number] [address] [place], [place] [address] [place] AST [Catalytic activity/Vol] Normal [facility] Comment on above: Order Comment: Speci men Type: BLOOD SPECIMEN Ordering Facility: [facility] Address: [address] [place] [address] Result Comment: Unab le to assay due to interference from hemolysis. Suggest reorder as clinically indicated. &XA&Notified Maria M, ED 1434 02/27/23 Results may be falsely depressed after the administration of Sulfasalazine and/or Sulfapyridine. Performed By: #### 2 4323-8, #### [facility] CLIA [id number] [address] [place] [address] [place] Bilirubin [Mass/Vol] 0.4 mg/dL Normal 0.2-1.0 [facility] Comment on above: Order Comment: Speci men Type: BLOOD SPECIMEN Ordering Facility: [facility] Address: [address] [place] [address] Performed By: #### 2 4323-8, #### [facility] CLIA [id number] [address] [place] [address] [place] Calcium [Mass/Vol] 9.4 mg/dL Normal 8.5-10.5 [facility] Comment on above: Order Comment: Speci men Type: BLOOD SPECIMEN Ordering Facility: [facility] Address: [address] [place] [address] Performed By: #### 2 4323-8, #### [facility] CLIA [id number] [address] [place], [place] [address] [place] Chloride [Moles/Vol] 103 mmol/L Normal 98-107 [facility] Comment on above: Order Comment: Speci men Type: BLOOD SPECIMEN Ordering Facility: [facility] Address: [address] [place] [address] Performed By: #### 2 4323-8, 79044-0 #### [facility] CLIA [id number] [address] [place] [address] [place] CO2 [Moles/Vol] 23 mmol/L Normal 21-32 [facility] Comment on above: Order Comment: Speci men Type: BLOOD SPECIMEN Ordering Facility: [facility] Address: [address] [place] [address] Performed By: #### 2 4323-8, #### [facility] CLIA [id number] [address] [place] [address] [place] Creatinine [Mass/Vol] 0.99 mg/dL High 0.51-0.95 [facility] Comment on above: Order Comment: Speci men Type: BLOOD SPECIMEN Ordering Facility: [facility] Address: [address] [place] [address] Result Comment: Ingrid ents receiving either N-Acetylcysteine (NAC) or Metamizole prior to venipuncture, may have falsely depressed results. Performed By: #### 2 4323-8, #### [facility] CLIA [id number] [address] [place] [address] Creatinine and Glomerular filtration rate.predicted panel (S/P/Bld) 62 mL/min/1.73m??? Normal >=60 [facility] Comment on above: Order Comment: Speci men Type: BLOOD SPECIMEN Ordering Facility: [facility] Address: [address] [place] [address] Result Comment: Francesca mated Glomerular Filtration Rate (eGFR) is calculated using the 2020 CKD-EPI creatinine equation. This equation utilizes serum creatinine, sex, and age as parameters. The creatinine assay has traceable calibration to isotope dilution-mass spectrometry. Refer to KDIGO guidelines for clinical interpretation. In patients with unstable renal function, e.g. those with acute kidney injury, the eGFR may not accurately reflect actual GFR. Performed By: #### 2 4323-8, #### [facility] CLIA [id number] [address] [place] [address] [place] Glucose [Mass/Vol] 217 mg/dL High 70-100 [facility] Comment on above: Order Comment: Olivia allen Type: BLOOD SPECIMEN Ordering Facility: [facility] Address: [address] [place] [address] Result Comment: The [place] Diabetes Association (ADA) provides guidance for cutoff values for fasting glucose and random glucose. The ADA defines fasting as no caloric intake for at least 8 hours. Fasting plasma glucose results between 100 to 125 mg/dL indicate increased risk for diabetes (prediabetes). Fasting plasma glucose results greater than or equal to 126 mg/dL meet the criteria for diagnosis of diabetes. In the absence of unequivocal hyperglycemia, results should be confirmed by repeat testing. In a patient with classic symptoms of hyperglycemia or hyperglycemic crisis, random plasma glucose results greater than or equal to 200 mg/dL meet the criteria for diagnosis of diabetes. Reference: Standards of Medical Care in Diabetes 2016, [place] [employer] Association. Diabetes Care. 2016.39(Suppl 1). Results may be falsely elevated after the administration of Sulfapyridine. Results may be falsely depressed after the administration of Sulfasalazine. Performed By: #### 2 4323-8, 31629-7 #### [facility] CLIA [id number] [address] [place], [place] [address] [place] Potassium [Moles/Vol] Normal [facility] Comment on above: Order Comment: Olivia allen Type: BLOOD SPECIMEN Ordering Facility: [facility] Address: [address] [place] [address] Result Comment: Unab le to assay due to interference from hemolysis. Suggest reorder as clinically indicated. &XA&Notified ZITA Franz 3918 02/27/23 Performed By: #### 2 4323-8, 07807-9 #### [facility] CLIA [id number] [address] [place], [place] [address] [place] Protein [Mass/Vol] 7.5 g/dL Normal 6.0-8.5 [facility] Comment on above: Order Comment: Olivia allen Type: BLOOD SPECIMEN Ordering Facility: [facility] Address: [address] [place] [address] Performed By: #### 2 4323-8, #### [facility] CLIA [id number] [address] [place], [place] [address] [place] Sodium [Moles/Vol] 137 mmol/L Normal 136-145 [facility] Comment on above: Order Comment: Speci men Type: BLOOD SPECIMEN Ordering Facility: [facility] Address: [address] [place] [id number] Performed By: #### 2 4323-8, #### [facility] CLIA [id number] [address] [place], [place] [address] [place] Urea nitrogen [Mass/Vol] 20 mg/dL Normal 7-26 [facility] Comment on above: Order Comment: Speci men Type: BLOOD SPECIMEN Ordering Facility: [facility] Address: [address] [place] [address] Performed By: #### 2 4323-8, 74347-2 #### [facility] CLIA [id number] [address] [place], [place] [address] [place] ECG COMPLETEon 02-27-2023 ECG COMPLETE Ventricular Rate : 105 BPM Atrial Rate : 105 BPM P-R Interval : 176 ms QRS Duration : 86 ms Q-T Interval : 376 ms QTC Calculation(Bazett) : 496 ms Calculated P [place] : 23 degrees Calculated R [place] : -48 degrees Calculated T [place] : -48 degrees Sinus tachycardia Left axis deviation Left ventricular hypertrophy with repolarization abnormality Anterior infarct , age undetermined Abnormal ECG No previous ECGs available Confirmed by LEWIS ADHIKARI MD ([id number]) on 02/28/2023 8:19:45 AM NAME : JEANETH CUELLO PID : [id number] : 1955 Gender : Female Race : ORD : [id number] Procedure Date : Feb 27 2023 15:29:20 Edit Date : Feb 28 2023 08:19:48 Diagnosis: Sinus tachycardia Left axis deviation Left ventricular hypertrophy with repolarization abnormality Anterior infarct , age undetermined Abnormal ECG No previous ECGs available Confirmed by LEWIS ADHIKARI MD ([id number]) on 02/28/2023 8:19:45 AM Test Reason : STAT Location : 0 : ED [id number] Overread By : LEWIS ADHIKARI MD Edited By : LEWIS ADHIKARI MD Referred By : , Acquired by : YEHUDA [facility] ED NOTEon 02-27-2023 ED NOTE HNO ID: [id number] Author: Lee De Paz RN Service: ? Author Type: Registered Nurse Type: ED Notes Filed: 02/27/2023 5:15 PM Note Text: Report called to Gricelda RN in ICU. All questions answered at this time. [facility] ED NOTE HNO ID: [id number] Author: Lee De Paz, SHANELL Service: ? Author Type: Registered Nurse Type: ED Notes Filed: 02/27/2023 4:10 PM Note Text: 10 mg Labetalol given per verbal order by Dr. Mason prior to Activase infusion. Informed to monitor patient if further medication needed. [facility] ED NOTE HNO ID: [id number] Author: Yarely Brothers RN Service: ? Author Type: Registered Nurse Type: ED Notes Filed: 02/27/2023 1:51 PM Note Text: Sudden onset SOB since 1030 this am, was tripoding unable to speak in complete sentences for medic. [facility] ED PROV NOTEon 02-27-2023 ED PROV NOTE HNO ID: [id number] Author: Patric Bender DO Service: ? Author Type: Physician Type: ED Provider Notes Filed: 02/27/2023 3:30 PM Note Text: ED Provider Note Patient Name: Jeaneth Cuello : 1955 SERVICE DATE: 02/27/23 History Patient presents with: Shortness of Breath Patient is a 67-year-old female who presents to the emergency department for acute onset shortness of breath starting this morning. States that she has had a mild nonproductive cough. She had a low-grade fever. Patient was recently discharged from outside hospital after treatment for diverticulitis. She denies any history of heart or lung issues. She has not had any chest pain associated with this. No leg swelling or calf pain. She has no history of DVT/PE. Per EMS patient was satting in the low 80s on room air. They gave Solu-Medrol, aspirin and started on CPAP immediately. On arrival to the ER patient is feeling improved. PAST MEDICAL HISTORY Diagnosis Date Asthma Diverticulitis Essential hypertension PAST SURGICAL HISTORY Procedure Laterality Date BACK SURGERY HX CHOLECYSTECTOMY HX OTHER SURGICAL HISTORY (PLEASE SPECIFY) HX Bilateral carpal tunnel No family history on file. Social History Tobacco Use Smoking status: Never Smokeless tobacco: Not on file Substance and Sexual Activity Alcohol use: Never Drug use: Not on file Sexual activity: Not on file ALLERGIES Allergen Reactions Noe Inhibitors Cough Beta-Blockers (Beta* Shortness of Breath Review of Systems Physical Exam Vitals BP Pulse Temp Temp src Resp SpO2 Weight Height 02/27/23 1356 02/27/23 1356 02/27/23 1359 02/27/23 1359 02/27/23 1356 02/27/23 1356 02/27/23 1356 02/27/23 1356 143/88 (!) 116 36.6 ?C (97.8 ?F) Oral (!) 38 (!) 87 % 122.9 kg (271 lb) 1.6 m (5' 3) Physical Exam Vitals and nursing note reviewed. Constitutional: General: She is in acute distress (Mild distress with increased work of breathing.). Appearance: Normal appearance. She is not ill-appearing. HENT: Head: Normocephalic and atraumatic. Mouth/Throat: Mouth: Mucous membranes are moist. Eyes: Extraocular Movements: Extraocular movements intact. Pupils: Pupils are equal, round, and reactive to light. Cardiovascular: Rate and Rhythm: Normal rate and regular rhythm. Heart sounds: No murmur heard. Pulmonary: Effort: Tachypnea present. Comments: Able to speak in few word sentences. Pursed lip breathing. Decreased breath sounds bilaterally but equal. Abdominal: General: There is no distension. Palpations: Abdomen is soft. Tenderness: There is no abdominal tenderness. Musculoskeletal: General: Normal range of motion. Cervical back: Normal range of motion and neck supple. Right lower leg: No tenderness. No edema. Left lower leg: No tenderness. No edema. Skin: General: Skin is warm and dry. Capillary Refill: Capillary refill takes less than 2 seconds. Findings: No rash. Neurological: General: No focal deficit present. Mental Status: She is alert and oriented to person, place, and time. Mental status is at baseline. Diagnostic Testing ED Labs Ordered and Reviewed COMP METABOLIC PANEL - Abnormal; Notable for the following components: Result Value Ref Range Glucose 217 (*) 70 - 100 mg/dL Creatinine 0.99 (*) 0.51 - 0.95 mg/dL All other components within normal limits HIGH SENSITIVITY TROPONIN I - Abnormal; Notable for the following components: Troponin I High Sensitivty 184.5 (*) 0.0 - 34.0 pg/mL All other components within normal limits NT PRO BNP - Abnormal; Notable for the following components: NT Pro BNP 7,626 (*) <125 pg/mL All other components within normal limits CBC + DIFF - Abnormal; Notable for the following components: WBC 12.04 (*) 3.70 - 11.00 k/uL RBC 5.21 (*) 3.90 - 5.20 m/uL Abs Neut 9.44 (*) 1.45 - 7.50 k/uL Abs [place] 0.96 (*) <0.87 k/uL All other components within normal limits VENOUS BLOOD GASES - Abnormal; Notable for the following components: pCO2, Venous 39 (*) 42 - 55 mmHg pO2, Venous <30 (*) 35 - 45 mmHg Base Deficit, Venous -3 (*) -2 - 0 mmol/L Bicarbonate, Venous 22 (*) 24 - 28 mmol/L Glucose, Whole Blood 222 (*) 60 - 105 mg/dL Lactate 3.1 (*) 0.5 - 2.2 mmol/L Hemoglobin, Whole Blood 16.3 (*) 11.5 - 15.5 g/dL All other components within normal limits MAGNESIUM BLD - Normal COVID AND INFLUENZA A/B AND RSV NAAT, EXPEDITED - Normal Narrative: This test has been authorized by FDA under an Emergency Use Authorization (EUA). HIGH SENSITIVITY TROPONIN I POTASSIUM BLD AST/SGOT BLD ACTIVATED PTT PROTHROMBIN TIME/PT Procedures ED Course / Clinical Impression Clinical Impressions as of 02/27/23 1530 Pulmonary embolism (HCC) Hypoxia COVID-19 test performed per [facility] [place] policy for suspected COVID community exposure. MDM / Disposition / Plan Patient presents to the emergency department for shortness of breath starting ea (more content not included)... Normal [facility] FLUABV+SARS-CoV-2+RSV Pnl Re sp DHEERAJ+probeon 02-27-2023 FLUABV+SARS-CoV-2+RSV Pnl Resp DHEERAJ+probe COVID 19 RESULT: Not detected The method used is RT-PCR or an equivalent NAAT method. Reference Range(the expected result in uninfected individuals): Not detected INFLUENZA A PCR: Not detected INFLUENZA B PCR: Not detected RSV PCR: Not detected Normal [facility] Comment on above: Performed By: #### 9 5941-1 #### [facility] CLIA [id number] [address] [place] [address] [place] Fibrinogen PPP-mCncon 2022 Fibrinogen Coag (PPP) [Mass/Vol] 68 mg/dL Low 200-400 [facility] Comment on above: Order Comment: Speci men Type: BLOOD SPECIMEN Ordering Facility: [facility] Address: [address] [place] [address] Performed By: #### 5 7021-8 #### [facility] CLIA [id number] [address] [place] [address] [place] Gas and Carbon monoxide pane l (BldV)on 02-27-2023 BASE DEFICIT, VENOUS -3 mmol/L Low -2-0 [facility] Comment on above: Order Comment: Speci men Type: VENOUS BLOOD SPECIMEN Ordering Facility: [facility] Address: [address] [place] [address] Performed By: #### 2 4344-4 #### [facility] CLIA [id number] [address] [place] [address] [place] Body temperature 97.88 [degF] Normal [facility] Comment on above: Order Comment: Speci men Type: VENOUS BLOOD SPECIMEN Ordering Facility: [facility] Address: [address] [place] [address] Performed By: #### 2 4344-4 #### [facility] CLIA [id number] [address] [place] [address] [place] Calcium.ionized (Bld) [Mass/Vol] 1.12 mmol/L Normal 1.08-1.30 [facility] Comment on above: Order Comment: Speci men Type: VENOUS BLOOD SPECIMEN Ordering Facility: [facility] Address: [address] [place] [address] Performed By: #### 2 4344-4 #### [facility] CLIA [id number] [address] [place] [address] [place] Carboxyhemoglobin (BldV) [Mass fraction] 2.0 % Normal 0.0-2.0 [facility] Comment on above: Order Comment: Speci men Type: VENOUS BLOOD SPECIMEN Ordering Facility: [facility] Address: [address] [place] [address] Result Comment: Carb oxyhemoglobin Reference Range for Smokers: 2.0-8.0% Performed By: #### 2 4344-4 #### [facility] CLIA [id number] [address] [place] [address] [place] CO2 (BldV) [Partial pressure] 39 mm[Hg] Low 42-55 [facility] Comment on above: Order Comment: Speci men Type: VENOUS BLOOD SPECIMEN Ordering Facility: [facility] Address: [address] [place] [address] Performed By: #### 2 4344-4 #### [facility] CLIA [id number] [address] [place] [address] [place] CO2 adjusted to patient's actual temperature (BldV) [Partial pressure] Normal [facility] Comment on above: Order Comment: Speci men Type: VENOUS BLOOD SPECIMEN Ordering Facility: [facility] Address: [address] [place] [address] Performed By: #### 2 4344-4 #### [facility] CLIA [id number] [address] [place] [address] [place] Glucose [Mass/Vol] 222 mg/dL High 60-105 [facility] Comment on above: Order Comment: Speci men Type: VENOUS BLOOD SPECIMEN Ordering Facility: [facility] Address: [address] [place] [address] Performed By: #### 2 4344-4 #### [facility] CLIA [id number] [address] [place] [address] [place] HCO3 (Bld) [Moles/Vol] 22 mmol/L Low 24-28 [facility] Comment on above: Order Comment: Speci men Type: VENOUS BLOOD SPECIMEN Ordering Facility: [facility] Address: [address] [place] [address] Performed By: #### 2 4344-4 #### [facility] CLIA [id number] [address] [place] [address] [place] Hemoglobin (Bld) [Mass/Vol] 16.3 g/dL High 11.5-15.5 [facility] Comment on above: Order Comment: Speci men Type: VENOUS BLOOD SPECIMEN Ordering Facility: [facility] Address: [address] [place] [address] Performed By: #### 2 4344-4 #### [facility] CLIA [id number] [address] [place] [address] [place] Lactate [Moles/Vol] 3.1 mmol/L High 0.5-2.2 [facility] Comment on above: Order Comment: Speci men Type: VENOUS BLOOD SPECIMEN Ordering Facility: [facility] Address: [address] [place] [address] Performed By: #### 2 4344-4 #### [facility] CLIA [id number] [address] [place] [address] [place] Methemoglobin (Bld) [Mass fraction] 0.3 % Normal 0.0-1.5 [facility] Comment on above: Order Comment: Speci men Type: VENOUS BLOOD SPECIMEN Ordering Facility: [facility] Address: [address] [place] [address] Performed By: #### 2 4344-4 #### [facility] CLIA [id number] [address] [place] [address] [place] O2 THERAPY RA=Room Air Normal [facility] Comment on above: Order Comment: Speci men Type: VENOUS BLOOD SPECIMEN Ordering Facility: [facility] Address: [address] [place] [address] Performed By: #### 2 4344-4 #### [facility] CLIA [id number] [address] [place] [address] [place] Oxygen (BldV) [Partial pressure] mm[Hg] Low 35-45 [facility] Comment on above: Order Comment: Speci men Type: VENOUS BLOOD SPECIMEN Ordering Facility: [facility] Address: [address] [facility] [place] [address] Performed By: #### 2 4344-4 #### [facility] CLIA [id number] [address] [place] [address] [place] Oxygen adjusted to patient's actual temperature (BldV) [Partial pressure] Normal [facility] Comment on above: Order Comment: Speci men Type: VENOUS BLOOD SPECIMEN Ordering Facility: [facility] Address: [address] [place] [address] Performed By: #### 2 4344-4 #### [facility] CLIA [id number] [address] [place] [address] [place] Oxyhemoglobin (BldV) [Mass fraction] 52 % Normal 4-98 [facility] Comment on above: Order Comment: Speci men Type: VENOUS BLOOD SPECIMEN Ordering Facility: [facility] Address: [address] [place] [address] Performed By: #### 2 4344-4 #### [facility] CLIA [id number] [address] [place] [address] [place] pH (BldV) 7.37 [pH] Normal 7.32-7.42 [facility] Comment on above: Order Comment: Speci men Type: VENOUS BLOOD SPECIMEN Ordering Facility: [facility] Address: [address] [place] [address] Performed By: #### 2 4344-4 #### [facility] CLIA [id number] [address] [place] [address] [place] pH adjusted to patient's actual temperature (BldV) Normal [facility] Comment on above: Order Comment: Speci men Type: VENOUS BLOOD SPECIMEN Ordering Facility: [facility] Address: [address] [place] [address] Performed By: #### 2 4344-4 #### [facility] CLIA [id number] [address] [place] [address] [place] Potassium [Moles/Vol] 3.4 mmol/L Normal 2.5-6.0 [facility] Comment on above: Order Comment: Speci men Type: VENOUS BLOOD SPECIMEN Ordering Facility: [facility] Address: [address] [place] [address] Performed By: #### 2 4344-4 #### [facility] CLIA [id number] [address] [place] [address] [place] Sodium [Moles/Vol] 141 mmol/L Normal 136-144 [facility] Comment on above: Order Comment: Speci men Type: VENOUS BLOOD SPECIMEN Ordering Facility: [facility] Address: [address] [place] [address] Performed By: #### 2 4344-4 #### [facility] CLIA [id number] [address] [place] [address] [place] HIGH SENSITIVITY TROPONIN Io n 02-27-2023 Tropinin I.cardiac panel High sensitivity method 241.2 pg/mL Critically high 0.0-34.0 [facility] Comment on above: Order Comment: Speci alejandro Type: VENOUS BLOOD SPECIMEN Ordering Facility: [facility] Address: [address] [place] [address] Result Comment: This assay uses different antibodies than our current assay, and assays, even by the same sole leveler may recognize different regions of the antibody and cannot be used interchangeably. Expect results of this assay to run higher than the previous assay. CALL CRITICAL&XA&Previous Critical or Urgent within 24 hours Performed By: #### 2 4344-4 #### [facility] CLIA [id number] [address] [place] [address] [place] Tropinin I.cardiac panel High sensitivity method 184.5 pg/mL Critically high 0.0-34.0 [facility] Comment on above: Order Comment: Olivia allen Type: BLOOD SPECIMEN Ordering Facility: [facility] Address: [address] [place] [address] Result Comment: This assay uses different antibodies than our current assay, and assays, even by the same sole leveler may recognize different regions of the antibody and cannot be used interchangeably. Expect results of this assay to run higher than the previous assay. CALL CRITICAL&XA&;Critical or Urgent Result(s) Called at: 14:34:35 on 02/27/2023 by: Mer Madera to and read back by: Fabio GARCIA RN Performed By: #### 3 3762-6, HSTROP #### [facility] CLIA [id number] [address] [place] [address] [place] HISTORY PHYSICALon HISTORY PHYSICAL HNO ID: [id number] Author: Mark Heredia APRN.CNP Service: Critical Care Author Type: Nurse Practitioner Type: HANDP Filed: 02/27/2023 4:16 PM Note Text: [facility] PUL[facility]ITICAL CARE SERVICE DATE: February 27, 2023 SERVICE TIME: 3:56 PM CHIEF COMPLAINT: Shortness of breath HPI: This 67 year old female with a past medical history as noted below who presented to the emergency department for shortness of breath, states her symptoms started roughly 1 week ago but last night became very tachypneic and hypoxic, she states her O2 saturations were in the high 70s. She is mostly in a wheelchair at baseline, she did have a recent illness with diverticulitis without bleeding was released from the hospital on February 17. No history of blood clots, non-smoker not on any hormone therapies. She has had no recent falls, she has no open areas on her skin. She has no known history of ulcers or GI bleeds. CT scan showed saddle pulmonary embolus with large clot burden in the right pulmonary artery. She states she was lightheaded and dizzy had to sit down to relieve the symptoms, she presented on BiPAP, they attempted to take her off on nonrebreather but she did not tolerate and therefore was placed back on BiPAP. Patient was evaluated in the emergency department, she is currently very tachypneic, tachycardic, slightly hypertensive. Discussed treatment plans to include heparin drip, EKOS therapy and lytics. This was discussed with myself and Dr. Maravilla and we feel given her presentation she would benefit from lytic therapy soon as possible. This was discussed with the patient, her and 2 children at bedside and they are in agreement. PAST MEDICAL HISTORY: SEE CHRONIC ISSSUES: PAST MEDICAL HISTORY Diagnosis Date Asthma Diverticulitis Essential hypertension PAST SURGICAL HISTORY Procedure Laterality Date BACK SURGERY HX CHOLECYSTECTOMY HX OTHER SURGICAL HISTORY (PLEASE SPECIFY) HX Bilateral carpal tunnel No family history on file. Social History Tobacco Use Smoking status: Never Substance Use Topics Alcohol use: Never HOME MEDICATIONS: No prescriptions on file. INPATIENT MEDICATIONS: Current Facility-Administere d Medications Medication Dose Route Frequency iv contrast (radiology procedure) INTRAVENOUS DIRECTED PRN alteplase 100 mg in sterile water 100 mL (ACTIVASE) 100 mg INTRAVENOUS ONCE And NaCl 0.9% iv flush bag 50 mL INTRAVENOUS As Directed ALLERGIES: Noe Inhibitors and Beta-Blockers (Beta-Adrenergic Blocking Agts) COMPLETE REVIEW OF SYSTEMS: Review of Systems Constitutional: Positive for activity change. Negative for chills. HENT: Negative for nosebleeds and sinus pressure. Respiratory: Positive for chest tightness and shortness of breath. Negative for cough. Cardiovascular: Positive for chest pain. Negative for leg swelling. Gastrointestinal: Negative for abdominal pain, blood in stool, diarrhea, nausea and vomiting. Genitourinary: Negative for frequency and hematuria. Musculoskeletal: Negative for back pain and neck pain. Neurological: Positive for dizziness and light-headedness. Negative for seizures and syncope. VITALS: 02/27/23 1401 02/27/23 1402 02/27/23 1500 02/27/23 1521 BP: 125/82 Pulse: (!) 110 (!) 102 Resp: (!) 25 (!) 32 (!) 27 Temp: TempSrc: SpO2: 98% 96% (!) 94% (!) 94% Weight: Height: PHYSICAL EXAM: Gen: Alert AND Oriented x 3, on noninvasive in respiratory distress HEENT: Normocephalic, Atraumatic, Pupils Equally Reactive to light and accomodation, NIV mask on face Neck: Supple, no rigidity, Trachea is midline. Lungs: Clear but diminished. No wheezing Heart: Tachycardic but regular, Normal S1 and S2, no murmurs. Abd: Soft, Nontender and nodistended, Positive Bowel Sounds x all four quadrants Ext: Trace to 1+ pitting edema left greater than right lower extremities Neuro: CN II - XII grossly intact, no sensory/motor deficits noted Ventilator Settings: %FIO2: 40 LABORATORY TESTS: CBC: Recent Labs 02/27/23 1401 WBC 12.04* HB 15.1 HCT 45.1 PLT 227 COAG: BMP: Recent Labs 02/27/23 1401 GLUC 217* NA 137 CHLOR 103 CO2 23 ANION 11 BUN 20 CREAT 0.99* CHEM: Recent Labs 02/27/23 1401 ALB 3.3 TPROT 7.5 CA 9.4 MG 1.8 HEPATIC: Recent Labs 02/27/23 1401 ALKPHOS 96 ALT 24 TBILI 0.4 URINALYSIS: Invalid input(s): NITR CARDIAC: Recent Labs 02/27/23 1401 PBNP 7,626* ASSESSMENT: Massive saddle pulmonary embolus Acute respiratory failure with hypoxia Recent diverticulitis Hyperglycemia CKD PLAN: Currently on an AVAPS, unable to tolerate off. Continue to maintain SpO2 greater than 92% Hemodynamics stable. Maintain MAP greater than [address] and laboratory findings, respiratory distress and physical examination deemed appropriate for alteplase therapy. Discussed with the p (more content not included)... Normal [facility] Magnesium SerPl-mCncon 02-27 Magnesium [Mass/Vol] 1.8 mg/dL Normal 1.6-2.6 [facility] Comment on above: Order Comment: Olivia allen Type: BLOOD SPECIMEN Ordering Facility: [facility] Address: [address] [place] [address] Performed By: #### 2 4323-8, 30142-5 #### [facility] CLIA [id number] [address] [place] [address] [place] NT-proBNP SerPl-mCncon 02-27 Natriuretic peptide.B prohormone N-Terminal [Mass/Vol] 7626 pg/mL High <125 [facility] Comment on above: Order Comment: Olivia allen Type: BLOOD SPECIMEN Ordering Facility: [facility] Address: [address] [place] [address] Result Comment: NT-p roBNP results of less than 300 pg/mL likely rules out acute congestive heart failure with 99% predictive value. NOTE: These cutoff points are suggested for ACUTE CHF DIAGNOSIS only Less than 50 years\X09\ Greater than 450 pg/mL 50 - 75 years\X09\\X09\ Greater than 900 pg/mL Greater than 75 years\X09\ Greater than 1800 pg/mL NOTE NEW NORMAL RANGE Performed By: #### 3 3762-6, HSTROP #### [facility] CLIA [id number] [address] [place], [place] [address] [place] POTASSIUM BLDon 02-27-2023 Potassium [Moles/Vol] 3.5 mmol/L Normal 3.5-5.1 [facility] Comment on above: Order Comment: Olivia allen Type: VENOUS BLOOD SPECIMEN Ordering Facility: [facility] Address: [address] [place] [address] Performed By: #### 2 4344-4 #### [facility] CLIA [id number] [address] [place], [place] [id number] [place] [facility] PT panel Coag (PPP)on 2022 INR Coag (PPP) [Relative time] 1.7 {INR} High 0.9-1.3 [facility] Comment on above: Order Comment: Olivia allen Type: BLOOD SPECIMEN Ordering Facility: [facility] Address: [address] [place] [address] Result Comment: Bette min K Antagonist (VKA) Therapeutic Range: INR 2 to 3 (Target INR of 2.5) Note: For patients treated with VKA drugs, such as warfarin, the [place] [employer] 2012 Guideline recommends a therapeutic INR range of 2 to 3 (target INR of 2.5). This recommendation includes high-risk patients with antiphospholipid syndrome with previous arterial or venous thromboembolism, current-generation mechanical or bioprosthetic aortic heart valve replacement. Note: Patients with mechanical aortic valve replacement and additional risk factors for thromboembolic events (atrial fibrillation, previous thromboembolism, LV dysfunction, hypercoagulable conditions) or an older generation mechanical AVR (i.e., ball in-Cage) or any mechanical MVR should have a INR therapeutic range of 2.5 to 3.5 (target INR of 3). Enrique GH, et al. Chest 2012, 141:7S-47S Sivakumar RA, et al. JAC 2017, 70: 252-289 Performed By: #### 5 7021-8 #### [facility] CLIA [id number] [address] [place], [place] [address] [place] PT Coag (PPP) [Time] 17.3 s High 9.7-13.0 [facility] Comment on above: Order Comment: Specal allen Type: BLOOD SPECIMEN Ordering Facility: [facility] Address: [place] [address] Performed By: #### 5 7021-8 #### [facility] CLIA [id number] [address] [place] [address] [place] INR Coag (PPP) [Relative time] 1.1 {INR} Normal 0.9-1.3 [facility] Comment on above: Order Comment: Olivia allen Type: VENOUS BLOOD SPECIMEN Ordering Facility: [facility] Address: [place] [address] Result Comment: Bette min K Antagonist (VKA) Therapeutic Range: INR 2 to 3 (Target INR of 2.5) Note: For patients treated with VKA drugs, such as warfarin, the [place] [employer] 2012 Guideline recommends a therapeutic INR range of 2 to 3 (target INR of 2.5). This recommendation includes high-risk patients with antiphospholipid syndrome with previous arterial or venous thromboembolism, current-generation mechanical or bioprosthetic aortic heart valve replacement. Note: Patients with mechanical aortic valve replacement and additional risk factors for thromboembolic events (atrial fibrillation, previous thromboembolism, LV dysfunction, hypercoagulable conditions) or an older generation mechanical AVR (i.e., ball in-Cage) or any mechanical MVR should have a INR therapeutic range of 2.5 to 3.5 (target INR of 3). Enrique GH, et al. Chest 2012, 141:7S-47S Sivakumar RA, et al. [facility] 2017, 70: 252-289 Performed By: #### 2 4344-4 #### [facility] CLIA [id number] [address] [place] [address] [place] PT Coag (PPP) [Time] 11.9 s Normal 9.7-13.0 [facility] Comment on above: Order Comment: Olivia allen Type: VENOUS BLOOD SPECIMEN Ordering Facility: [facility] Address: [place] [address] Performed By: #### 2 4344-4 #### [facility] CLIA [id number] [address] [place] [address] [place] STAPH AUREUS PCRon S. aureus and MRSA panel DHEERAJ+probe (Nose) Normal Negative [facility] Comment on above: Order Comment: Speci men Type: BLOOD SPECIMEN Ordering Facility: [facility] Address: [address] [place] [address] Result Comment: Nega tive for Staphylococcus aureus by PCR. Negative for MRSA by PCR Performed By: #### 5 7021-8 #### [facility] CLIA [id number] [address] [place] [id number] [place] XR CHEST 1V FRONTAL PORTon 1 04-30-2022 XR CHEST 1V FRONTAL PORT * * *Final Report* * * DATE OF EXAM: Feb 27 2023 2:07PM RHX [id number] - XR CHEST 1V FRONTAL PORT / PROCEDURE REASON: Shortness of breath * * * * Physician Interpretation * * * * EXAMINATION: CHEST RADIOGRAPH (PORTABLE SINGLE VIEW AP) Exam Date/Time: 02/27/2023 2:07 PM Clinical History: Shortness of breath M: XCP_4 Comparison: 08/18/2021 RESULT: Patient is rotated. Lines, tubes, and devices: None. Lungs and pleura: No focal lung consolidation, pleural effusion, or pneumothorax. Cardiomediastinal silhouette: Within normal limits accounting for patient's rotation. Osseous structures: No acute osseous finding. IMPRESSION: No acute process. Master Police Detective: TONY Transcribe Date/Time: Feb 27 2023 2:17P Dictated by : LYNN PEÑA MD This examination was interpreted and the report reviewed and electronically signed by: LYNN PEÑA MD on Feb 27 2023 2:19PM EST [id number] CN Normal [facility] aPTT PPPon 02-27-2023 aPTT Coag (PPP) [Time] 46.7 s High 23.0-32.4 [facility] Comment on above: Order Comment: Speci men Type: BLOOD SPECIMEN Ordering Facility: [facility] Address: [address] [place] [address] Performed By: #### 5 7021-8 #### [facility] CLIA [id number] [address] [place], [place] [id number] [place] aPTT Coag (PPP) [Time] 29.8 s Normal 23.0-32.4 [facility] Comment on above: Order Comment: Speci men Type: VENOUS BLOOD SPECIMEN Ordering Facility: [facility] Address: [address] [place] [address] Performed By: #### 2 4344-4 #### [facility] CLIA [id number] [address] [place], [place] [id number] [place] Hemoglobin A1con 06-15-2020 HbA1c (Bld) [Mass fraction] 6.2 % High 4.3-5.[address] [facility] Comment on above: Performed By: #### H BA1C, T3 #### [facility] Routine Lab [address] [place] [address] HbA1c (Bld) [Mass fraction] 131 mg/dL Normal [facility] Comment on above: Performed By: #### H BA1C, T3 #### [facility] Routine Lab [address] [place] [address] T3on 06-15-2020 T3 129 ng/dL Normal 79-[address] [facility] Comment on above: Performed By: #### H BA1C, T3 #### [facility] Routine Lab [address] [place] [address] Final Surgical Pathology Rep [facility] 09-15-2018 Final Surgical Pathology Report . Pathology Reports Accession: Collected Date/Time: Received Date/Time: Pathologist: [id number] 09/11/2018 09:34 EDT 09/14/2018 07:26 EDT AMRITA RANDOLPH MD Final Surgical Pathology Report DIAGNOSIS: ENDOMETRIUM, CURETTAGE -- FRAGMENT OF MUCUS, BLOOD CLOT AND SCANT FRAGMENTS OF ENDOCERVICAL AND ENDOMETRIAL TISSUE QUANTITATIVELY INSUFFICIENT FOR DETAILED EVALUATION. COMMENT: [facility] - A# [id number] CLINICAL INFORMATION: VAGINAL BLEEDING, ABNORMAL SPECIMEN: A ENDOMETRIAL TISSUE GROSS DESCRIPTION: Received in formalin labeled with the patient's name is about 1 cc of dark red blood clot and quezada mucoid material. TS -1 Dictated by Iliana YUN ([facility]) MICROSCOPIC DESCRIPTION: Slides reviewed. Electronically Signed by Pathology Report verified by [facility] Electronically signed by AMRITA RANDOLPH Sign out Date: 09/15/2018 14:01 Performing Lab: [facility], [address] [place] [address] ([place]) Comment on above: Performed By: #### S PFR #### [place] [address] JSon 07-20-2017 [facility] REPORT Normal [facility] DATE OF SERVICE: 07/20/2017A 62-year-old female with chief complaint of abdominal pain, painful stools, andnausea. Symptoms have been present for the past 4 days. She states that she has aflare of her diverticulitis and is seen for a diverticulitis flare. She has ahistory of hypertension and diverticulitis as well as asthma and rheumatoidarthritis. PHYSICAL EXAMINATION: Vital Signs: Stable except for a blood pressure of 150/90.General: Patient is in no acute distress. Heart: Regular rate and rhythm. Nomurmurs, rubs, or gallops. Lungs: Clear to auscultation bilaterally. Abdomen:Soft without tenderness in all quadrants except for the right upper quadrant withoutvoluntary guarding. No rebound or rigidity. Positive bowel sounds.ASSESSMENT: Diverticulitis flare.PLAN: Ciprofloxacin 500 mg twice daily for 10 days and Flagyl 500 mg 3 times dailyfor 10 days. Establish with a primary care physician, Dr. Katz given as areferral. Petty Hammonds, [facility]/[id number]: 07/20/2017 18:13DT: 07/20/2017 18:29SSI File#: [id number] #: [id number] 07/21/17 1429 [facility] PATIENT NAME: JEANETH CUELLO [facility] Dr. Hart MEDICAL REC #: [id number], [place] [address] STATCARE REPORT STATCARE PHYSICIAN Normal [facility] [place] Vital Signs Date Time Vital Sign Value Performing Clinician Facility 08-26-2024 13:00-0400 Body temperature 98 [degF] Dr. Laron Mora MD Work Phone: [facility] 08-26-2024 13:00-0400 Diastolic blood pressure 71 mm[Hg] Dr. aLron Mora MD Work Phone: [facility] 08-26-2024 13:00-0400 Heart rate 78 /min Dr. Laron Mora MD Work Phone: [facility] 08-26-2024 13:00-0400 Respiratory rate 18 /min Dr. Laron Mora MD Work Phone: [facility] 08-26-2024 13:00-0400 SaO2% (BldA) [Mass fraction] 99 % Dr. Laron Mora MD Work Phone: [facility] 08-26-2024 13:00-0400 Systolic blood pressure 154 mm[Hg] Dr. Laron Mora MD Work Phone: [facility] 08-26-2024 08:57-0400 Body mass index (BMI) [Ratio] 43.6 kg/m2 Dr. Laron Mora MD Work Phone: [facility] 08-26-2024 08:57-0400 Body weight 111.[address] Laron Mora MD Work Phone: [facility] 08-26-2024 08:43-0400 Body height 160.[address] Laron Mora MD Work Phone: [facility] 07-07-2024 10:47-0400 Body mass index (BMI) [Ratio] 49.9 kg/m2 Dr. Laron Mora MD Work Phone: [facility] 07-07-2024 10:47-0400 Body weight 127.[address] Laron Mora MD Work Phone: [facility] 07-07-2024 10:47-0400 Diastolic blood pressure 94 mm[Hg] Dr. Laron Mora MD Work Phone: [facility] 07-07-2024 10:47-0400 Heart rate 74 /min Dr. Laron Mora MD Work Phone: [facility] 07-07-2024 10:47-0400 Respiratory rate 18 /min Dr. Laron Mora MD Work Phone: [facility] 07-07-2024 10:47-0400 SaO2% (BldA) [Mass fraction] 95 % Dr. Laron Mora MD Work Phone: [facility] 07-07-2024 10:47-0400 Systolic blood pressure 168 mm[Hg] Dr. Laron Mora MD Work Phone: [facility] 06-28-2024 13:35-0400 Body height 160.02 cm [facility] [employer] [facility], [facility]. 06-28-2024 13:35-0400 Body mass index (BMI) [Ratio] 49.95 kg/m2 [facility], [facility]. 06-28-2024 13:35-0400 Body surface area Derived from formula 2.24 m2 [facility] [employer] [facility] [employer] [facility], [facility]. 06-28-2024 13:35-0400 Body weight 127.92 kg [facility] 06-28-2024 13:35-0400 Diastolic blood pressure 82 mm[Hg] Danielle Ayalaion SECOND HAND [facility] Comment on above: Patient Position: Sitting; Cuff Location : Left Arm; Cuff Size: Standard 06-28-2024 13:35-0400 Heart rate 87 /min Danielle Ayalaion SECOND HAND [facility] Comment on above: Pattern: Regular 06-28-2024 13:35-0400 Systolic blood pressure 133 mm[Hg] Danielle Radha SECOND HAND [facility] Comment on above: Patient Position: Sitting; Cuff Location : Left Arm; Cuff Size: Standard 04-20-2024 10:23-0500 Body weight 130.18 kg Mary Quintana [facility] 04-20-2024 10:23-0500 Diastolic blood pressure 96 mm[Hg] Mary [facility]ercyone [facility] Comment on above: Patient Position: Sitting; Cuff Location : Left Arm; Cuff Size: Standard 04-20-2024 10:23-0500 Heart rate 87 /min Mary Quintana [facility] Comment on above: Pattern: Regular 04-20-2024 10:23-0500 Systolic blood pressure 156 mm[Hg] Mary LEEMercyone [facility] Comment on above: Patient Position: Sitting; Cuff Location : Left Arm; Cuff Size: Standard 02-23-2024 14:00-0500 Body temperature 98.6 [degF] Danielle Ayalaion SECOND HAND [facility] [employer] [facility] Comment on above: Method: Oral 02-23-2024 14:00-0500 Diastolic blood pressure 97 mm[Hg] Danielle Radha SECOND HAND [facility] Comment on above: Patient Position: Sitting; Cuff Location : Left Arm; Cuff Size: Standard 02-23-2024 14:00-0500 Heart rate 83 /min Danielle Radha TAPIAN [facility] [place] [employer] [facility] Comment on above: Pattern: Regular 02-23-2024 14:00-0500 Inhaled oxygen concentration 21 % Daniellerobin Garcia LPN [facility] Comment on above: Room air 02-23-2024 14:00-0500 Respiratory rate 20 /min Daniellerobin Garcia LPN [facility] Comment on above: Pattern: Unlabored 02-23-2024 14:00-0500 SaO2% (BldA) [Mass fraction] 96 % Daniellerobin Garcia LPN [facility] 02-23-2024 14:00-0500 Systolic blood pressure 179 mm[Hg] Danielle Radha JAVED [facility] Comment on above: Patient Position: Sitting; Cuff Location : Left Arm; Cuff Size: Standard 10-22-2023 10:30-0400 Diastolic blood pressure 81 mm[Hg] Danielle Radha TAPIAN [facility] Comment on above: Patient Position: Sitting; Cuff Location : Left Arm; Cuff Size: Standard 10-22-2023 10:30-0400 Heart rate 83 /min Danielle Radha SECOND HAND [facility] Comment on above: Pattern: Regular 10-22-2023 10:30-0400 Systolic blood pressure 129 mm[Hg] Danielle Radha [facility].; [facility] [place] [employer] [facility] [employer] [facility] Comment on above: Patient Position: Sitting; Cuff Location : Left Arm; Cuff Size: Standard 03-10-2023 16:25-0500 Body temperature 99.1 [degF] LICHA WYMAN RN [facility], [facility].; [facility], [employer]. Comment on above: Method: Oral 03-10-2023 16:25-0500 Diastolic blood pressure 79 mm[Hg] LICHA WYMAN RN [facility], [employer] [facility], [employer]. Comment on above: Patient Position: Sitting; Cuff Location : Left Arm; Cuff Size: Standard 03-10-2023 16:25-0500 Heart rate 80 /min LICHA WYMAN RN [facility], [facility].; [facility], [employer]. Comment on above: Pattern: Regular 03-10-2023 16:25-0500 Inhaled oxygen concentration 21 % LICHA WYMAN RN [facility], [facility].; [facility], [employer]. Comment on above: Room air 03-10-2023 16:25-0500 SaO2% (BldA) [Mass fraction] 89 % LICHA WYMAN RN [facility], [facility].; [facility] 03-10-2023 16:25-0500 Systolic blood pressure 131 mm[Hg] LICHA WYMAN RN [facility], [facility].; [email or web address]. Comment on above: Patient Position: Sitting; Cuff Location : Left Arm; Cuff Size: Standard 02-14-2023 14:39-0500 Body temperature 98.8 [degF] Clarissa SAAVEDRA MD Work Phone: [email or web address]. Comment on above: Method: Oral 02-14-2023 14:39-0500 Diastolic blood pressure 118 mm[Hg] Clarissa SAAVEDRA MD Work Phone: [facility]. Comment on above: Patient Position: Sitting; Cuff Location : Left Arm; Cuff Size: Large 02-14-2023 14:39-0500 Heart rate 83 /min Clarissa SAAVEDRA MD Work Phone: [facility].; [facility]. Comment on above: Pattern: Regular 02-14-2023 14:39-0500 Systolic blood pressure 185 mm[Hg] Clarissa SAAVEDRA MD Work Phone: [facility].; [facility]. Comment on above: Patient Position: Sitting; Cuff Location : Left Arm; Cuff Size: Large 01-13-2023 15:48-0500 Body weight 129.28 kg [place] [facility] 01-13-2023 15:48-0500 Diastolic blood pressure 79 mm[Hg] Saige Overholt [facility] [employer] [facility] [employer] [facility] Comment on above: Patient Position: Sitting; Cuff Location : Left Arm; Cuff Size: Standard 01-13-2023 15:48-0500 Heart rate 85 /min Saige [place]olt [facility] [employer] [facility] Inc.; [facility] [employer] [facility], [facility] Comment on above: Pattern: Regular 01-13-2023 15:48-0500 Systolic blood pressure 125 mm[Hg] Saige [place] [facility] [employer] [facility], [facility] [employer] [facility] Comment on above: Patient Position: Sitting; Cuff Location : Left Arm; Cuff Size: Standard Encounters Encounter Date Encounter Type Care Provider Facility Start: 08-26-2024 End: 08-26-2024 Emergency department patient visit Dr. Laron Mora MD Work Phone: -Emergency Department Work Phone: Start: 07-14-2024 End: 07-14-2024 Medication Refill/Order ADENIKE MCGUIRE MD Work Phone: [facility] [employer] [email or web address]. Start: 07-07-2024 End: 07-07-[address] Ramiro Dave MD -[facility] Work Phone: Start: 07-07-2024 End: 07-07-2024 ambulatory [facility] Start: 06-28-2024 End: 06-28-2024 Office outpatient visit 10 minutes ADENIKE MCGUIRE MD Work Phone: [employer] Start: 06-07-2024 End: 06-08-2024 Medication Refill/Order ADENIKE MCGUIRE MD Work Phone: [facility] Start: 06-07-2024 End: 06-07-2024 Medication Refill/Order ADENIKE MCGUIRE MD Work Phone: [employer] Start: 05-13-2024 End: 05-13-2024 Results Review ADENIKE MCGUIRE MD Work Phone: [employer] Start: 05-10-2024 End: 05-10-2024 Results Review ADENIKE MCGUIRE MD Work Phone: [employer] Start: 05-10-2024 End: 05-10-2024 Emergency department patient visit ADENIKE MCGUIRE [facility] Start: 05-03-2024 End: 05-03-2024 Lab Only ADENIKE MCGUIRE MD Work Phone: [employer] Start: 04-22-2024 End: 04-22-2024 ambulatory ADENIKE King [facility] Start: 04-20-2024 Review ADENIKE Duval MD Work Phone: [employer] Start: 04-20-2024 End: 04-20-2024 Medication Refill/Order ADENIKE MCGUIRE MD Work Phone: [employer] Start: 04-20-2024 End: 04-20-2024 Patient encounter procedure ADENIKE MCGUIRE MD Work Phone: [facility] [facility] Start: 03-14-2024 End: 03-15-2024 Emergency department patient visit WILL BROWNING [facility] Start: 03-09-2024 End: 03-09-2024 Results Review ADENIKE MCGUIRE MD Work Phone: [facility] [place] [employer] Start: 03-01-2024 End: 03-01-2024 ambulatory ADENIKE BLUNT [facility] Start: 02-23-2024 End: 02-23-2024 ambulatory ADENIKE BLUNT [facility] Start: 02-23-2024 End: 02-23-2024 Office outpatient visit 10 minutes ADENIKE MCGUIRE MD Work Phone: [facility] [place] [facility] Start: 10-23-2023 End: 10-23-2023 Follow-up encounter Clarissa SAAVEDRA MD Work Phone: [employer] [place] [facility] Start: 10-22-2023 End: 10-22-2023 Office outpatient visit 10 minutes Clarissa SAAVEDRA MD Work Phone: [employer] [place] [facility] Start: 03-18-2023 Review Clarissa SAAVEDRA MD Work Phone: [facility] [place] [facility] Start: 03-14-2023 End: 03-17-2023 Medication Refill/Order Clarissa SAAVEDRA MD Work Phone: [facility] [employer] Start: 03-10-2023 End: 03-10-2023 Office outpatient visit 10 minutes Clarissa SAAVEDRA MD Work Phone: [employer] [place] [facility] Start: 03-06-2023 End: 03-06-2023 Historical Summary Clarissa SAAVEDRA MD Work Phone: [employer] [place] [facility] Start: 02-27-2023 End: 03-03-2023 Evaluation and management of inpatient KIANA GRIFFITH Facility:[id number] Start: 02-14-2023 End: 02-14-2023 Office outpatient visit 10 minutes Clarissa SAAVEDRA MD Work Phone: [facility] Start: 01-13-2023 End: 01-13-2023 Office outpatient new 20 minutes Clarissa SAAVEDRA MD Work Phone: [facility] Start: 07-20-2017 Ambulatory Petty Lillian Hammonds Facili ty:[facility] Procedures Date Procedure Procedure Detail Performing Clinician Start: 08-26-2024 Computed tomography of abdomen and pelvis with intravenous contrast Dr. Laron Mora MD Work Phone: Start: 08-26-[address] Laron Mora MD Work Phone: Start: 06-28-2024 End: 06-28-2024 Dischrg meds reconciled w/current med list RAGINI HIDALGO GENETIC PHYSICIAN-C Work Phone: Start: 05-10-2024 End: 05-10-2024 Urinalysis ADENIKE MCGUIRE MD Work Phone: Comment on above: Result Comment: URIN ALYSIS Performed By: #### 2 [id number] #### [place] [id number] Start: 04-20-2024 End: 04-20-2024 Dischrg meds reconciled w/current med list ADENIKE MCGUIRE MD Work Phone: Start: 03-14-2024 Urinalysis WILL Romo Comment on above: Result Comment: URIN ALYSIS Performed By: #### 2 [id number] #### [place] [id number] Start: 02-23-2024 End: 02-23-2024 Dischrg meds reconciled w/current med list ADENIKE MCGUIRE MD Work Phone: Start: 10-22-2023 End: 10-22-2023 Dischrg meds reconciled w/current med list AICHA VANEGAS GENETIC PHYSICIAN-C Work Phone: Start: 03-10-2023 End: 03-10-2023 Dischrg meds reconciled w/current med list AICHA VANEGAS GENETIC PHYSICIAN-C Work Phone: Start: 01-13-2023 End: 01-13-2023 Dischrg meds reconciled w/current med list AICHA VANEGAS GENETIC PHYSICIAN-C Work Phone: Start: 12-02-2011 End: 12-02-2011 Lumbar spinal fusion Saige Garcia CUSTODY OFFICER Comment on above: Lumbar L4-L5 Start: 12-01-2010 End: 12-01-2010 Operative procedure on spinal structure Saige Garcia CUSTODY OFFICER Comment on above: Shaved bulging disc and cleaned out arthritis.. L4-L5 Start: 05-01-2009 End: 05-01-2009 Arthroscopic knee operation Saige arevalo CUSTODY OFFICER Comment on above: Meniscus Tear Start: 01-01-1991 End: 01-01-1991 Left oophorectomy Saige Garcia CUSTODY OFFICER Start: 07-01-1988 End: 07-01-1988 Decompression of median nerve Saige Garcia CUSTODY OFFICER Start: 1988 End: 1988 Cholecystectomy Saige Garcia CUSTODY OFFICER Operative procedure on shoulder Saige Estevest CUSTODY OFFICER Comment on above: Right. Operative procedure on shoulder LICHA WYMAN RN Comment on above: Right. Operative procedure on shoulder Danielle Radha SECOND HAND Comment on above: Right. Operative procedure on shoulder Danielle Radha SECOND HAND Comment on above: Right. Operative procedure on shoulder Mary Quintana RMA Comment on above: Right. Operative procedure on shoulder Danielle Radha SECOND HAND Comment on above: Right. Plan of Treatment Date Care Activity Detail Author Start: 08-26-2024 [facility] Start: 08-26-2024 [facility] Start: 08-10-2024 Patient encounter procedure Medical; DIABETIC CHECK - [facility] Start: 10-Aug-2024 13:00-04:00 MD ADENIKE MCGUIRE [facility]ment [facility] [place] [employer] Start: 08-09-2024 Patient encounter procedure Medical; [facility] [employer] [employer] Start: 09-Aug-2024 10:00-04:00 ILAN HIDALGO [facility]ointment [facility] [place] [employer] [facility] [employer] Start: 05-03-2024 Hemoglobin glycosyla jacque a1c HGB A1C (62689) Start: 03-May-2024 08:45-05:00 Request [email or web address] Start: 05-03-2024 Basic metabolic pane l calcium total BMP (77173) Start: 03-May-2024 08:45-05:00 Request [email or web address] Start: 05-03-2024 Patient encounter procedure Medical; LAB ONLY - [facility] 04/20/24 [employer] [place] [employer] Start: 03-May-2024 08:45-05:00 MD Clarissa SAAVEDRA Appointment Request [facility] [place] [employer] [facility] [employer] Start: 04-26-2024 Basic metabolic pane l calcium total BMP (08534) Start: 26-Apr-2024 Request [email or web address]. Start: 04-26-2024 Hemoglobin glycosyla jacque a1c HGB A1C (02041) Start: 26-Apr-2024 Request [email or web address]. Start: 04-20-2024 Us lmtd joint/oth nonvasc xtr strux r-t w/img ULTRASOUND OF SOFT TISSUE MASS OF EXTREMITY (44317) Start: 20-Apr-2024 Intent Comments: Anterior LLE 2x2 cm round [email or web address]. Comment on above: Anterior LLE 2x2 cm round Start: 04-20-2024 Patient encounter procedure Medical; BLOOD PRESSURE CHECK - [employer] [place] [facility] Start: 20-Apr-2024 10:15-05:00 MD ADENIKE MCGUIRE Appointment Request [facility] [place] [facility] Start: 02-23-2024 Basic metabolic pane l calcium total BMP (74776) Start: 23-Feb-2024 14:32-05:00 Request [email or web address] Start: 02-23-2024 Ct thorax w/contrast material CT CHEST W/ CONTRAST FOR PE (50164) - IV Contrast per Protocol Start: 23-Feb-2024 Intent [employer]; [employer] [facility] [employer] Start: 02-23-2024 Dup-scan xtr veins complete bilateral study VENOUS DUPLEX BILATERAL LOWER (90939) Start: 23-Feb-2024 Intent [employer]; [employer] Start: 02-23-2024 FILING PATIENT ASSISTANCE FORM (PATASSF) FILING PATIENT ASSISTANCE FORM (PATASSF) Start: 23-Feb-2024 Intent [email or web address] Start: 10-22-2023 Comprehensive metabo lic panel CMP - COMPREHENSIVE METABOLIC PANEL (97533) Start: 22-Oct-2023 10:53-04:00 Request [employer]; [employer] Start: 10-22-2023 Hemoglobin glycosyla jacque a1c HGB A1C (30218) Start: 22-Oct-2023 10:48-04:00 Request [email or web address] Start: 03-10-2023 Follow-up encounter Medical; H OSPITAL FOLLOW UP - [place] - Blood clots in lungs - admitted 02/27-03/03/23 [employer]. Start: 10-Mar-2023 16:00 ILAN VANEGAS [facility]ment [email or web address] Start: 03-10-2023 FILING PATIENT ASSISTANCE FORM (PATASSF) FILING PATIENT ASSISTANCE FORM (PATASSF) Start: 10-Mar-2023 Intent [facility]; [facility] Patient Education Diverticulitis Dc ED Lower GI Bleeding (Stable) [facility] Work Phone: Patient referral [facility] Work Phone: Immunizations Immunization Date Immunization Notes Care Provider Carla luque 01-13-2023 influenza virus vaccine, unspecified formulation Clarissa SAAVEDRA MD Work Phone: [facility]; [facility] Comment on above: Refused. Payers Date Payer Category Payer Self-pay 2024 Unknown 2023 Unknown [id number] 1955 Unknown [id number] 2.16.8 [id number] 1955 Unknown [id number] 2.16.8 [id number] 1955 Unknown [id number] 2.16.8 [id number] 1955 Unknown [id number] 2.16.8 [id number] 1955 Unknown [id number] 2.16.8 [id number] 1955 Unknown [id number] 2.16.8 [id number] Unknown 83 Unknown [id number] 2.16.8 [id number] Social History Date Type Detail Facility Alcohol Use: Alcohol Use: ; N o Alcohol Use. [facility]; [facility] Caffeine Use - Current Caffeine Use - Cur rent [email or web address] Tobacco use: Tobacco use: ; N ever smoker. [facility]; [facility] Start: 1955 Female [facility] Start: 08-26-2024 Never smoked tobacco [facility] Clinical Notes 02-27-2023 to 08-26-2024 Note Date & Type Note Facility 08-26-2024 Radiology Diagnostic study note [facility] Imaging Services [address] [place] [address] Abdomen/Pelvis W IV Cont ONLY MR#: [id number] Acct: [id number] Name: JEANETH CUELLO Burke Rep #: [id number] : [id number] F 69 From: Theo Whiteside MD PCP: PAWEL Donovan Status: REG ER Study:Abdomen/Pelvis W IV Cont ONLY Date of E xam: 08/26/24 Exam# [id number] Ordering Dr: Scot Raygoza DO PROCEDURE: ABDOMEN/PELVIS W IV CONT ONLY 08/26/2024 REASON FOR EXAM: LLQ PAIN, RECTAL BLEEDING TECHNIQUE: ABDOMEN/PELVIS W IV CONT ONLY Coronal and Sagittal reconstruction series were provided. CONTRAST: Isovue-300 VOLUME: 100 mL One or more dose reduction techniques were used (e.g., Automated exposure control, adjustment of the mA and/or kV according to patient size, use of iterative reconstruction technique. RADIATION DOSE SUMMARY: CTDlvol: 12.6 mGy DLP: 1352.08 mGycm COMPARISON: None FINDINGS: Lung bases: Lung bases are clear. Coronary artery calcification. Liver: Diffuse fatty infiltration. Gallbladder: Surgically absent. Spleen: Normal size. Pancreas: Normal size without evidence of mass surrounding inflammation or ductal dilation. Adrenals: Unremarkable Kidneys: Normal renal sizes. No hydronephrosis. Bladder: Unremarkable Reproductive Organs: Unremarkable Bowel: Colonic diverticulosis with mild inflammatory changes suggestive of possible early diverticulitis. Appendix: The appendix is not identified. There is no inflammatory process identified in the right lower quadrant to suggest appendicitis. Lymph nodes: No suspicious lymph node enlargement. Vasculature: Mild diffuse atherosclerotic calcifications are noted. Unremarkable Bones: Degenerative changes of the spine. Prior lumbar fusion. CT/Abdomen/Pelvis W IV Cont ONLY IMPRESSION: Fatty infiltration of the liver. Status post cholecystectomy. Sigmoid diverticulosis and findings suggestive of mild diverticulitis. No fluidcollection is seen. Reading Location: [id number] CC: PAWEL Hidalgo; Dr. Scot Raygoza, DO ~ Master Police Detective: Signed [facility] 07-07-2024 Evaluation note Diagnosis Onset Date Resolution Abnormal ECG acute July 07 10:41am Lower extremity edema acute July 07, 2024 10:41am Type 2 diabetes mellitus acute July 07, 2024 10 :41am Hypertension chronic July 07 10:41am [facility] Work Phone: [phone]) 964-548903-10-2025 NoteDischarge Instructions Discharge Summary [address] [address] [id number] 05/10/2024 Patient: JEANETH CUELLO Sex: Female : 1955 Age: 68y Thank you for visiting [facility]. You have been evaluated today by Will Dey D.O. for the following condition(s): Principal Diagnosis Ureterolithiasis (single stone) in the right ureter with hydronephrosis. Acute urinary tract infection with cystitis and hematuria. (colonic narrowing). INSTRUCTIONS Drink plenty of fluids. (strain all urine. take medication as prescibed.). Warnings: GENERAL WARNINGS: Return or contact your physician immediately if your condition worsens or changes unexpectedly, if not improving as expected, or if other problems arise. Prescription Medications: oxycodone-acetaminophen 5 mg-325 mg tablet: Take 1 tablet by mouth every six hours as needed for pain for 3 days, dispense 12 tablet. Refills 0. Pharmacy: [place] [id number]. ketorolac 10 mg tablet: Take 1 tablet by mouth every eight hours as needed for pain for 5 days, dispense 15 tablet. Refills 0. Pharmacy: [place] [id number]. 1 of 7 Discharge Instructions ondansetron 4 mg disintegrating tablet: Take 1 tablet on tongue every eight hours for nausea/vomiting for 5 days, dispense 15 tablet. Refills 0. Pharmacy: [place] [id number] [place] [id number]. Bactrim DS 800 mg-160 mg tablet: Take 1 tablet by mouth twice a day for 10 days, dispense 20 tablet. Refills 0. Pharmacy: [place] [id number]. cephalexin 500 mg tablet: Take 1 tablet by mouth four times a day for 10 days, dispense 40 tablet. Refills 0. Pharmacy: [place] [id number]. Understanding of the discharge instructions verbalized by patient and family. Follow-up with: Cristian Dolan M.D, [facility], Phone: [phone], [address] [place] [id number]. Follow up in three days. Call for an appointment. Reason for referral: evaluation and treatment. Summary of care provided to patient and family. (follow up for colonoscopy with dr cuello also.). Jon Cuello MD, [facility], General Surgery, Phone: [phone], [address] [facility], [place] [phone]. Follow up in two weeks. Call for an appointment. Reason for referral: evaluation and treatment. Summary of care provided to patient and family. (for colonoscopy). 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 [place] [id number] 05/10/2024 Patient: JEANETH CUELLO Sex: Female : 1955 Age: 68y Thank you for visiting [facility]. You have been evaluated today by Will Dey D.O. for the following condition(s): Principal Diagnosis Ureterolithiasis (single stone) in the right ureter with hydronephrosis. Acute urinary tract infection with cystitis and hematuria. (colonic narrowing). INSTRUCTIONS Drink plenty of fluids. (strain all urine. take medication as prescibed.). Warnings: GENERAL WARNINGS: Return or contact your physician immediately if your condition worsens or changes unexpectedly, if not improving as expected, or if other problems arise. Prescription Medications: oxycodone-acetaminophen 5 mg-325 mg tablet: Take 1 tablet by mouth every six hours as needed for pain for 3 days, dispense 12 tablet. Refills 0. Pharmacy: [place] [address]. ketorolac 10 mg tablet: Take 1 tablet by mouth every eight hours as needed for pain for 5 days, dispense 15 tablet. Refills 0. Pharmacy: [place] [address]. ondansetron 4 mg disintegrating tablet: Take 1 tablet on tongue every eight hours for nausea/vomiting for 5 days, dispense 15 tablet. Refills 0. Pharmacy: [place] [address]. 3 of 7 Discharge Instructions Bactrim DS 800 mg-160 mg tablet: Take 1 tablet by mouth twice a day for 10 days, dispense 20 tablet. Refills 0. Pharmacy: [place] [id number]. cephalexin 500 mg tablet: Take 1 tablet by mouth four times a day for 10 days, dispense 40 tablet. Refills 0. Pharmacy: [place] [address]. (more content not included)...[facility]01-16-2025 Note Discharge Instructions Discharge Summary [place] [address] [place] [address] [id number] 03/14/2024 Patient: JEANETH CUELLO Sex: Female : 1955 Age: 68y Thank you for visiting [facility]. You have been evaluated today by Will Dey D.O. for the following condition(s): Principal Diagnosis Ureterolithiasis (single stone) in the left ureter with hydronephrosis and urinary tract infection. Acute urinary tract infection with cystitis and hematuria. INSTRUCTIONS No strenuous activity. Drink plenty of fluids. (strain all urine). Warnings: GENERAL WARNINGS: Return or contact your physician immediately if your condition worsens or changes unexpectedly, if not improving as expected, or if other problems arise. Prescription Medications: oxycodone-acetaminophen 5 mg-325 mg tablet: Take 1 tablet by mouth every six hours as needed for pain for 3 days, dispense 12 tablet. Refills 0. Pharmacy: [facility] [place] [address]. Bactrim DS 800 mg-160 mg tablet: Take 1 tablet by mouth twice a day for 10 days, dispense 20 tablet. Refills 0. Pharmacy: [facility] [place] [address]. 1 of 14 Discharge Instructions ketorolac 10 mg tablet: Take 1 tablet by mouth every eight hours as needed for pain for 5 days, dispense 15 tablet. Refills 0. Pharmacy: [facility] [place] [address]. Understanding of the discharge instructions verbalized by patient and family. Follow-up with: Cristian Dolan M.D, [facility], [facility], Phone: [phone], [address] [place] [address]. Follow up in three days even if well. Call for an appointment. Reason for referral: evaluation and treatment. Summary of care provided to patient and family. 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 [address] [place] [address] [id number] 03/14/2024 Patient: JEANETH CUELLO Sex: Female : 1955 Age: 68y Thank you for visiting [facility]. You have been evaluated today by Will Dey D.O. for the following condition(s): Principal Diagnosis 2 of 14 Discharge Instructions Ureterolithiasis (single stone) in the left ureter with hydronephrosis and urinary tract infection. Acute urinary tract infection with cystitis and hematuria. INSTRUCTIONS No strenuous activity. Drink plenty of fluids. (strain all urine). Warnings: GENERAL WARNINGS: Return or contact your physician immediately if your condition worsens or changes unexpectedly, if not improving as expected, or if other problems arise. Prescription Medications: oxycodone-acetaminophen 5 mg-325 mg tablet: Take 1 tablet by mouth every six hours as needed for pain for 3 days, dispense 12 tablet. Refills 0. Pharmacy: [place] [address] [place] [id number]. Bactrim DS 800 mg-160 mg tablet: Take 1 tablet by mouth twice a day for 10 days, dispense 20 tablet. Refills 0. Pharmacy: [place] [id number] [place] [id number]. ketorolac 10 mg tablet: Take 1 tablet by mouth every eight hours as needed for pain for 5 days, dispense 15 tablet. Refills 0. Pharmacy: [place] [id number] [place] [id number]. Understanding of the discharge instructions verbalized by patient and family. Follow-up with: Cristian Dolan M.D, [facility], [facility], Phone: [phone], [address] [place] [id number]. Follow up in three days even if well. Call for an appointment. Reason for referral: evaluation and treatment. Summary of care provided to patient and family. ADDITIONAL INFORMATION 3 of 14 Discharge Instructions Kidney Stone with Pain The sharp cramping pain on either side of your lower back and nausea or vomiting that you have are because of a small stone that has formed in the kidney. It's now passing down a narrow tube (ureter) on its way to your bladder. Once the stone reaches your bladder, the pain will often stop. But it may come back as the stone continues to pass out of the bladder and through the urethra. The stone may pass in your urine stream in one piece. The size may be 1/16 inch to 1/4 inch (1 mm to 6 mm). Or, the stone may break up into luis fragments that you may not even notice. Once you have had a kidney stone, you are at risk of getting another one in the future. There are 4types of kidney stones. Eighty percent are calcium s (more content not included)...[facility]12-31-2023 NoteHNO ID: [id number] Author: Mark Gupta RN Service: Nursing Author Type: Registered Nurse Type: Progress Notes Filed: 03/02/2023 7:04 PM Note Text: Patient tolerating 1L O2 (RA baseline) even with ambulation. Will pass on to historic sites supervisor to try to wean back to room air. She is able to ambulate to restroom as long as she has help with any lines and a standby assist. Patient requested to have primafit removed prior to shift change, tolerating well at this time.[facility]12-31-2023 NoteHNO ID: [id number] Author: Rey Jules MD Service: ? Author Type: Physician Type: Progress Notes Filed: 03/02/2023 2:42 PM Note Text: INPATIENT PROGRESS NOTE SERVICE DATE: 03/02/2023 SERVICE TIME: 2:40 PM PRIMARY SERVICE: Hospitalist Subjective CHIEF COMPLAINT: Submassive PE 67-year-old female patient sedentary comes in the hospital with a submassive pulmonary embolism. Admitted to the intensive care unit. Patient received tPA. Patient improved rapidly. Patient was then transition to heparin drip and is now on Eliquis. Patient is weak and will need some mild rehabilitation at [facility] facility after discharge INTERVAL HPI: Patient is starting to feel better. Understands that she may need to go to [facility]dc before going home Current Facility-Administered Medications Medication Dose Route Frequency iv contrast (radiology procedure) INTRAVENOUS DIRECTED PRN ipratropium-albuterol 3 mL nebulizer solution (DUONEB) 3 mL INHALATION q 4 H PRN NaCl 0.9% iv flush bag 20 mL INTRAVENOUS PRN ondansetron 4 mg tab(s) (ZOFRAN) 4 mg ORAL q 6 H PRN Or ondansetron (PF) 4 mg injection (ZOFRAN) 4 mg INTRAVENOUS q 6 H PRN sodium chloride 0.9 % (flush) 2-10 mL (BD POSIFLUSH) 2-10 mL INTRAVENOUS DIRECTED PRN dextrose 40 % 15 g 15 g ORAL PRN Or glucagon 1 mg injection 1 mg INTRAMUSCULAR PRN Or dextrose 10% iv bolus 12.5 g INTRAVENOUS PRN amLODIPine 10 mg tab(s) (NORVASC) 10 mg ORAL DAILY insulin lispro injection (rapid acting) (ADMElog) SUBCUTANEOUS w MEALS insulin lispro injection (rapid acting) (ADMElog) SUBCUTANEOUS AT BEDTIME hydrALAZINE 10 mg injection (APRESOLINE) 10 mg INTRAVENOUS q 6 H PRN labetalol 10 mg injection (NORMODYNE) 10 mg INTRAVENOUS q 2 H PRN famotidine 20 mg tab(s) (PEPCID) 20 mg ORAL DAILY docusate sodium 100 mg cap(s) (COLACE) 100 mg ORAL BID apixaban 10 mg tab(s) (ELIQUIS) 10 mg ORAL BID Followed by [START ON 03/09/2023] apixaban 5 mg tab(s) (ELIQUIS) 5 mg ORAL BID polyethylene glycol 3350 17 g packet 17 g ORAL DAILY Objective PHYSICAL EXAM: BP 138/81 Pulse 83 Temp (Src) 98.2 (Oral) Resp 17 Ht 5' 3 (1.60m) Wt 283 lb 4.8 oz (128.5kg) SpO2 94% BMI 50.20 kg/(m2). O2 Therapy: Nasal Cannula, Liters: 3 Physical Exam Performed HEENT: normocephalic, atraumatic, pink conjunctiva, no sclera icterus, pink wet oral mucosa, no dental caries, no LN neck/armpit/groin, no JVD, no goiter Heart: S1 S2 RRR, no murmur/rubs/clicks Lungs: CTAB, respiratory effort is normal Abdomen: soft, NT,ND, +BS, no hepato-splenomegaly Lower extremities: no pitting edema, + doralis pedis and radial pulses intact and symmetric bilaterally Neuro: light touch sensation is intact in arms and legs, AAO3 Skin: pink warm and dry, no rashes/ecchymosis/ General: well nourished and well hydrated, no distress, morbidly obese DATA: Diagnostic tests reviewed for today's visit: Most recent labs and imaging results. Most recent labs Assessment/Plan 1. Submassive pulmonary embolism: Status post thrombolysis. Start Eliquis 10 mg p.o. twice daily and then changed to Eliquis 5 mg p.o. twice daily after 1 week 2. Acute hypoxemic respiratory failure: Patient improving. Still on 3 L of oxygen. Wean as necessary 3. Hypertensive urgency: Continue amlodipine 10 mg p.o. daily 4. Hyperglycemia: Blood sugars controlled 5. Chronic kidney disease stage II: GFR is 73 6. Questionable obstructive sleep apnea: Outpatient sleep study 7. Morbid obesity: Weight loss DVT prophylaxis on Eliquis No Jimenez Full code Disposition Home Resolved Problems: * No resolved hospital problems. * Medication and Non-Pharmacologic VTE Prophylaxis/Anticoagulants Anticoagulant AND Antiplatelet Medications (From admission, onward) Start Dose Route Frequency Last Action Ordered Stop 03/09/23 0900 apixaban 5 mg tab(s) (ELIQUIS) (apixaban tab(s) (ELIQUIS)) See Hyperspace for full Linked Orders Report. 5 mg ORAL 2 TIMES DAILY Ordered 03/02/23 1014 -- 03/02/23 1030 apixaban 10 mg tab(s) (ELIQUIS) (apixaban tab(s) (ELIQUIS)) See Hyperspace for full Linked Orders Report. 10 mg ORAL 2 TIMES DAILY Given, 03/02 1019 03/02/23 1014 03/09/23 0859 02/28/23 0845 activity - mobilize patient (hi,va) 02/27/23 1845 vte pharmacologic prophylaxis contraindicated (hi,va) 02/27/23 1845 vte non-pharmacologic prophylaxis - none indicated ([place], [place]) VTE Prophylaxis: VTE prophylaxis appropriate SIGNATURE: Rey Jules MD, MD PATIENT NAME: Jeaneth Cuello DATE: March 01, 2023 TIME: 5:09 [facility]12-31-2023 NoteHNO ID: [id number] Author: Mark Gupta RN Service: Nursing Author Type: Registered Nurse Type: Progress Notes Filed: 03/02/2023 9:50 AM Note Text: Patient beginning to feel backed up as she has not had a BM since admission on 02/27 - requesting stool softener. Message out to Dr Jules.[facility]12-30-2023 NoteHNO ID: [id number] Author: Rey Jules MD Service: ? Author Type: Physician Type: Progress Notes Filed: 03/01/2023 5:15 PM Note Text: INPATIENT PROGRESS NOTE SERVICE DATE: 03/01/2023 SERVICE TIME: 5:12 PM PRIMARY SERVICE: Hospitalist Subjective CHIEF COMPLAINT: Submassive PE INTERVAL HPI: Patient feeling better but still short of breath Current Facility-Administered Medications Medication Dose Route Frequency iv contrast (radiology procedure) INTRAVENOUS DIRECTED PRN ipratropium-albuterol 3 mL nebulizer solution (DUONEB) 3 mL INHALATION q 4 H PRN NaCl 0.9% iv flush bag 20 mL INTRAVENOUS PRN ondansetron 4 mg tab(s) (ZOFRAN) 4 mg ORAL q 6 H PRN Or ondansetron (PF) 4 mg injection (ZOFRAN) 4 mg INTRAVENOUS q 6 H PRN sodium chloride 0.9 % (flush) 2-10 mL (BD POSIFLUSH) 2-10 mL INTRAVENOUS DIRECTED PRN dextrose 40 % 15 g 15 g ORAL PRN Or glucagon 1 mg injection 1 mg INTRAMUSCULAR PRN Or dextrose 10% iv bolus 12.5 g INTRAVENOUS PRN heparin iv infusion 25,000 units in NaCl 0.45% 250 mL STANDARD NOMOGRAM 0-3,000 Units/hr INTRAVENOUS CONTINUOUS And heparin RATE CHANGE bolus 1,000-10,000 Units for subtherapeutic PTTAC results 1,000-10,000 Units INTRAVENOUS PRN amLODIPine 10 mg tab(s) (NORVASC) 10 mg ORAL DAILY insulin lispro injection (rapid acting) (ADMElog) SUBCUTANEOUS w MEALS insulin lispro injection (rapid acting) (ADMElog) SUBCUTANEOUS AT BEDTIME hydrALAZINE 10 mg injection (APRESOLINE) 10 mg INTRAVENOUS q 6 H PRN labetalol 10 mg injection (NORMODYNE) 10 mg INTRAVENOUS q 2 H PRN famotidine 20 mg tab(s) (PEPCID) 20 mg ORAL DAILY Objective PHYSICAL EXAM: BP 132/76 Pulse 76 Temp (Src) 97.9 (Oral) Resp 18 Ht 5' 3 (1.60m) Wt 290 lb 11.2 oz (131.9kg) SpO2 97% BMI 51.51 kg/(m2). O2 Therapy: Nasal Cannula, Liters: 3 Physical Exam Performed HEENT: normocephalic, atraumatic, pink conjunctiva, no sclera icterus, pink wet oral mucosa, no dental caries, no LN neck/armpit/groin, no JVD, no goiter Heart: S1 S2 RRR, no murmur/rubs/clicks Lungs: CTAB, respiratory effort is normal Abdomen: soft, NT,ND, +BS, no hepato-splenomegaly Lower extremities: no pitting edema, + doralis pedis and radial pulses intact and symmetric bilaterally Neuro: light touch sensation is intact in arms and legs, AAO3 Skin: pink warm and dry, no rashes/ecchymosis/ General: well nourished and well hydrated, no distress, morbidly obese DATA: Diagnostic tests reviewed for today's visit: Most recent labs and imaging results. Most recent labs Assessment/Plan 1. Submassive pulmonary embolism: Continue with heparin drip 18 mL/h IV. Check PTT every 6 hours. Watch for bleeding. Patient will be switched to Eliquis tomorrow 2. Acute hypoxemic respiratory failure: Patient improving. Still on 3 L of oxygen. Wean as necessary 3. Hypertensive urgency: Continue amlodipine 10 mg p.o. daily 4. Hyperglycemia: Blood sugars controlled 5. Chronic kidney disease stage II: GFR is 73 6. Questionable obstructive sleep apnea: Outpatient sleep study 7. Morbid obesity: Weight loss DVT prophylaxis on heparin drip No Jimenez Full code Disposition Home Resolved Problems: * No resolved hospital problems. * Medication and Non-Pharmacologic VTE Prophylaxis/Anticoagulants Anticoagulant AND Antiplatelet Medications (From admission, onward) Start Dose Route Frequency Last Action Ordered Stop 02/27/230 heparin iv infusion 25,000 units in NaCl 0.45% 250 mL STANDARD NOMOGRAM (Heparin Infusion + Bolus for Subtherapeutic PTTAC) 0-30 mL/hr See Hyperspace for full Linked Orders Report. 0-3,000 Units/hr INTRAVENOUS CONTINUOUS New Bag/Syringe/Bottle, 03/01 1544 02/27/23 2128 -- 02/28/23 0845 activity - mobilize patient (hi,va) 02/27/23 184 vte pharmacologic prophylaxis contraindicated (hi,va) 02/27/23 184 vte non-pharmacologic prophylaxis - none indicated (hi,va) VTE Prophylaxis: VTE prophylaxis appropriate SIGNATURE: Rey Jules MD, MD PATIENT NAME: Jeaneth Cuello DATE: March 01, 2023 TIME: 5:09 [facility]12-29-2023 NoteHNO ID: [id number] Author: Juno Maravilla MD Service: Critical Care Author Type: Physician Type: Progress Notes Filed: 02/28/2023 8:40 AM Note Text: PULMONARY/CRITICAL CARE INTENSIVE MEDICAL/SURGICAL CARE UNIT PROGRESS NOTE Patient Name: Jeaneth Cuello Account #: Data Unavailable Admission Date: 02/27/2023 Date of Evaluation: 02/28/2023 Time of Evaluation: 8:34 AM SUBJECTIVE Feeling much better VITALS 02/28/23 0630 02/28/23 0645 02/28/23 0700 02/28/23 0715 BP: 121/67 134/68 136/72 129/69 Pulse: 77 75 80 80 Resp: 23 23 Temp: TempSrc: SpO2: 99% 99% 99% 98% Weight: Height: PHYSICAL EXAM Gen: Alert AND Oriented x 3, No acute distress HEENT: Normocephalic, Atraumatic, Pupils Equally Reactive to light and accomodation, moist mucous membranes, Neck: Supple, no rigidity, Trachea is midline, no Lymphadenopathy Lungs: Clear to Auscultation bilaterally , No wheezing, rhonchi or rales Heart: Regular Rate and Rhythm, Normal S1 and S2, no murmurs Abd: Soft, Nontender and nondistended, Positive Bowel Sounds Ext: minimal edema, +2 pulses Neuro: CN II - XII grossly intact, no sensory/motor deficits noted 24 hour Intake AND Output: Intake/Output Summary (Last 24 hours) at 02/28/2023 0834 Last data filed at 02/28/2023 0502 Gross per 24 hour Intake 1210.81 ml Output 450 ml Net 760.81 ml INPATIENT MEDICATIONS : Current Facility-Administered Medications Medication Dose Route Frequency iv contrast (radiology procedure) INTRAVENOUS DIRECTED PRN lactated ringers iv infusion 75 mL/hr INTRAVENOUS CONTINUOUS ipratropium-albuterol 3 mL nebulizer solution (DUONEB) 3 mL INHALATION q 4 H PRN NaCl 0.9% iv flush bag 20 mL INTRAVENOUS PRN ondansetron 4 mg tab(s) (ZOFRAN) 4 mg ORAL q 6 H PRN Or ondansetron (PF) 4 mg injection (ZOFRAN) 4 mg INTRAVENOUS q 6 H PRN sodium chloride 0.9 % (flush) 2-10 mL (BD POSIFLUSH) 2-10 mL INTRAVENOUS DIRECTED PRN dextrose 40 % 15 g 15 g ORAL PRN Or glucagon 1 mg injection 1 mg INTRAMUSCULAR PRN Or dextrose 10% iv bolus 12.5 g INTRAVENOUS PRN insulin lispro injection (rapid acting) (ADMElog) SUBCUTANEOUS q 6 H labetalol 10 mg injection (NORMODYNE) 10 mg INTRAVENOUS q 2 H PRN hydrALAZINE 10 mg injection (APRESOLINE) 10 mg INTRAVENOUS q 6 H PRN niCARdipine iv infusion 40 mg in NaCl (iso-osmotic) 200 mL (CARDENE) 2.5-15 mg/hr INTRAVENOUS CONTINUOUS heparin iv infusion 25,000 units in NaCl 0.45% 250 mL STANDARD NOMOGRAM 0-3,000 Units/hr INTRAVENOUS CONTINUOUS And heparin RATE CHANGE bolus 1,000-10,000 Units for subtherapeutic PTTAC results 1,000-10,000 Units INTRAVENOUS PRN amLODIPine 10 mg tab(s) (NORVASC) 10 mg ORAL DAILY HOME MEDICATIONS: amLODIPine (NORVASC) 10 mg tabletTake 10 mg by mouth once daily.Disp: Rfl: LABORATORY TESTS: CBC: Recent Labs 02/28/23 03402/27/23 2123 02/27/23 1401 WBC 9.47 11.19* 12.04* HB 14.5 15.4 15.1 HCT 43.1 46.0 45.1 PLT 198 213 227 MCV 86.2 85.3 86.6 RDWCV 14.4 14.4 14.4 NEUTP -- 91.7 78.4 ABSNEUT -- 10.26* 9.44* LYMPHP -- 5.7 12.6 MONOP -- 1.6 8.0 COAG: Recent Labs 02/28/23 0342 02/27/23 2022 02/27/23 1545 APTT 108.7* 46.7* 29.8 INR 1.7* 1.7* 1.1 BMP: Recent Labs 02/28/23 0342 02/27/23 1544 02/27/23 1401 GLUC 203* -- 217* NA 140 -- 137 K 3.6 3.5 -- CHLOR 106 -- 103 CO2 21 -- 23 ANION 13 -- 11 BUN 25 -- 20 CREAT 0.81 -- 0.99* CHEM: Recent Labs 02/28/23 0342 02/27/23 1401 ALB 3.0* 3.3 TPROT 7.0 7.5 CA 9.1 9.4 MG 1.9 1.8 HEPATIC: Recent Labs 02/28/23 0342 02/27/23 1544 02/27/23 1401 ALKPHOS 90 -- 96 ALT 22 -- 24 AST 31 38* -- TBILI 0.4 -- 0.4 URINALYSIS:No results for input(s): PH, SPGR, UGLUC, UBILI, UKET, UHB, UPROT, UROBIL, UWBC, SSA in the last 168 hours. Invalid input(s): NITR CARDIAC: Recent Labs 02/27/23 1401 PBNP 7,626* IMPRESSION: Massive saddle pulmonary emboli R > L Acute respiratory failure with hypoxia Recent diverticulitis Hypertensive urgency Hyperglycemia CKD Presumed CHRISTOPHER BMI > 50 ? HFpEF PLAN: Currently on 4 liters NC, wean to goal sats > 90% Hemodynamics stable, S/p Alteplase 02/27 for massive PE C/w heparin drip today, transition to oral NOAC 03/01 Wean cardene gtt to off, resume home amlodipine 10 mg daily Outpt PSG, autopap while inpt for presumed CHRISTOPHER Echocardiogram completed this am, await results Lower extremity Dopplers Cardiac diet 6-hour blood glucose checks with low-dose sliding scale Check HgbA1c OOB to chair, OK to ambulate GI/DVT prophylaxis Good status: Full code ICU Checklist A= Assess, Prevent, Manage Pain C= Choice of Sedation and Analgesia B= Both Spontaneous Awakening and Breathing Trials D= Delirium: Assess, Prevent and Manage E= E (more content not included)...[facility]12-28-2023 NoteHNO ID: [id number] Author: Estiven Aldrich [facility] Service: ? Author Type: Pharmacist Type: Plan of Care Filed: 02/27/2023 4:51 PM Note Text: PHARMACY MEDICATION REVIEW Patient Name: Jeaneth Cuello : 1955 The below information represents the best possible medication history: Yes Medication history completed by: ED Pharmacist Estiven Aldrich [facility] Source of history: Patient: Reliability of source: Appears reliable, clearly identified: Medication name, Medication dose, Medication route, Medication frequency, Timing of last dose, and Indications Medication nonadherence identified: No barriers noted Preferred outpatient pharmacy: [facility] [address] [phone] [facility] [phone] Allergies: Noe Inhibitors Cough Beta-Blockers (Beta* Shortness of Breath Prior to Admission Medications Prescriptions Last Dose Informant Patient Reported? Taking? amLODIPine (NORVASC) 10 mg tablet Yes Yes Sig: Take 10 mg by mouth once daily. Facility-Administered Medications: None Estiven Aldrich RPh 02/27/2023[facility]12-28-2023 NoteHNO ID: [id number] Author: Juno Maravilla MD Service: Critical Care Author Type: Physician Type: Progress Notes Filed: 02/27/2023 4:48 PM Note Text: [facility] STAFF PHYSICIAN NOTE OF PERSONAL INVOLVEMENT IN CARE I have reviewed the history and physical examination obtained and documented by the NADEEN. I have personally performed a face to face assessment of the patient and performed the substantive portion of the visit which includes the medical decision making. I have discussed the case and management of the patient's care. The following comments revise or confirm relevant brooks components of the note. IMPRESSION: Massive saddle pulmonary emboli R > L Acute respiratory failure with hypoxia Recent diverticulitis Hyperglycemia CKD PLAN: Currently on an AVAPS, unable to tolerate off w increased WOB, high MV. Continue to maintain SpO2 greater than 92% Hemodynamics stable, tachycardic. Maintain MAP greater than [address] and laboratory findings, respiratory distress and physical examination deemed appropriate for alteplase therapy. Discussed with the patient and family at bedside who are in agreement. Alteplase 100 mg every 2 hours. Followed by heparin drip Maintain systolic BP less than 140 Frequent neurochecks Avoid blood sticks Echocardiogram Lower extremity Dopplers N.p.o. 6-hour blood glucose checks with low-dose sliding scale Check HgbA1c GI/DVT prophylaxis Good status: Full code Patient/Family Updated: Patient, Jeaneth Cuello, updated regarding the goals of care, medical plan for the day, email production consultant recommendations, medical disposition and current medical condition/prognosis as and if clinically indicated. All questions and concerns were answered and addressed at this juncture. They were notified on February 27, 2023 at 1600. The duration of the conversation was 15 minutes. Extensive discussion regarding the risks vs benefits of alteplase therapy for submassive ==> massive PE. [place] decision to proceed w lytic therapy. Screen for recent bleeding or recent bleeding risk completed with patient. This patient has a high probability of sudden, clinically significant deterioration, which requires the highest level of physician preparedness to intervene urgently. I managed/supervised life or organ supporting interventions that required frequent physician assessment. I devoted my full attention to the direct care of this patient for the amount of time indicated below. Time I spent with family or surrogate(s) is included only if the patient was incapable of providing the necessary information or participating in medical decision making. Time devoted to teaching and to any procedures I billed separately is not included. Critical Care Documentation: The patient has the following organ/system impairment(s): Complex life-threatening medical problem(s), Respiratory failure (Acute, with Hypoxemia), and massive PE Time spent providing critical care services: 40 minutes. SIGNATURE: Jnuo Maravilla MD [facility] DATE [facility]: [facility] Additional Instructions Your CT scan mild diverticulitis. Your hemoglobin 12.1 to 11. Discussed with hospital team. Plan of care is to hold your Eliquis for the next 4 days. Take and finish your antibiotics. Can restart your Eliquis after 4 days if your bleeding resolved. If you have increasing bleeding increasing pain or fevers, return to the ED for reevaluation. Follow-up with general surgery for your recurrent diverticulitis. Follow-up with heme/oncology to discuss your previous PE, immobilization if you should be continuing your long-term anticoagulant.[facility] Work Phone: Reason for referral (narrative)No reason for referral information availableWooster [facility] Work Phone: Summary Purpose Family History Brother (s) Status:Active Comments:3. In g [employer]. Father Status:Active Comments: d. Heart disease Mother Status:Active Comments: d. Breast Cancer. Sister (s) Status:Active Comments:2. moriah claros sister has Parkinson's disease Son (s) Status:Active Comments:4. In g ood health. One son had Skin CA removed Brother (s) Status:Active Comments:3. In g [employer] [facility]. Father Status:Active Comments: d. Heart disease Mother Status:Active Comments: d. Breast Cancer. Sister (s) Status:Active Comments:2. moriah claros sister has Parkinson's disease Son (s) Status:Active Comments:4. In [employer]. One son had Skin CA removed Brother (s) Status:Active Comments:3. In [employer]. Father Status:Active Comments: d. Heart disease Mother Status:Active Comments: d. Breast Cancer. Sister (s) Status:Active Comments:2. moriah doyle has Parkinson's disease Son (s) Status:Active Comments:4. In [employer]. One son had Skin CA removed Brother (s) Status:Active Comments:3. In [employer]. Father Status:Active Comments: d. Heart disease Mother Status:Active Comments: d. Breast Cancer. Sister (s) Status:Active Comments:2. moriah doyle has Parkinson's disease Son (s) Status:Active Comments:4. In [employer]. One son had Skin CA removed Brother (s) Status:Active Comments:3. In [employer]. Father Status:Active Comments: d. Heart disease Mother Status:Active Comments: d. Breast Cancer. Sister (s) Status:Active Comments:2. moriah doyle has Parkinson's disease Son (s) Status:Active Comments:4. In [employer]. One son had Skin CA removed Brother (s) Status:Active Comments:3. In [employer]. Father Status:Active Comments: d. Heart disease Mother Status:Active Comments: d. Breast Cancer. Sister (s) Status:Active Comments:2. moriah gest sister has Parkinson's disease Son (s) Status:Active Comments:4. In [employer]. One son had Skin CA removed Brother (s) Status:Active Comments:3. In [employer]. Father Status:Active Comments: d. Heart disease Mother Status:Active Comments: d. Breast Cancer. Sister (s) Status:Active Comments:2. moriah claros sister has Parkinson's disease Son (s) Status:Active Comments:4. In [employer]. One son had Skin CA removed Brother (s) Status:Active Comments:3. In [employer]. Father Status:Active Comments: d. Heart disease Mother Status:Active Comments: d. Breast Cancer. Sister (s) Status:Active Comments:2. moriah doyle has Parkinson's disease Son (s) Status:Active Comments:4. In [employer]. One son had Skin CA removed Brother (s) Status:Active Comments:3. In [employer]. Father Status:Active Comments: d. Heart disease Mother Status:Active Comments: d. Breast Cancer. Sister (s) Status:Active Comments:2. moriah doyle has Parkinson's disease Son (s) Status:Active Comments:4. In [employer]. One son had Skin CA removed Brother (s) Status:Active Comments:3. In [employer]. Father Status:Active Comments: d. Heart disease Mother Status:Active Comments: d. Breast Cancer. Sister (s) Status:Active Comments:2. moriah claros sister has Parkinson's disease Son (s) Status:Active Comments:4. In [employer]. One son had Skin CA removed Brother (s) Status:Active Comments:3. In [employer]. Father Status:Active Comments: d. Heart disease Mother Status:Active Comments: d. Breast Cancer. Sister (s) Status:Active Comments:2. moriah doyle has Parkinson's disease Son (s) Status:Active Comments:4. In [employer]. One son had Skin CA removed Brother (s) Status:Active Comments:3. In [employer]. Father Status:Active Comments: d. Heart disease Mother Status:Active Comments: d. Breast Cancer. Sister (s) Status:Active Comments:2. moriah claros sister has Parkinson's disease Son (s) Status:Active Comments:4. In [employer]. One son had Skin CA removed Brother (s) Status:Active Comments:3. In [employer]. Father Status:Active Comments: d. Heart disease Mother Status:Active Comments: d. Breast Cancer. Sister (s) Status:Active Comments:2. moriah claros sister has Parkinson's disease Son (s) Status:Active Comments:4. In [employer]. One son had Skin CA removed Brother (s) Status:Active Comments:3. In [employer]. Father Status:Active Comments: d. Heart disease Mother Status:Active Comments: d. Breast Cancer. Sister (s) Status:Active Comments:2. moriah doyle has Parkinson's disease Son (s) Status:Active Comments:4. In [employer]. One son had Skin CA removed Brother (s) Status:Active Comments:3. In [employer]. Father Status:Active Comments: d. Heart disease Mother Status:Active Comments: d. Breast Cancer. Sister (s) Status:Active Comments:2. moriah doyle has Parkinson's disease Son (s) Status:Active Comments:4. In [employer]. One son had Skin CA removed Brother (s) Status:Active Comments:3. In [employer]. Father Status:Active Comments: d. Heart disease Mother Status:Active Comments: d. Breast Cancer. Sister (s) Status:Active Comments:2. moriah claros sister has Parkinson's disease Son (s) Status:Active Comments:4. In [employer]. One son had Skin CA removed Brother (s) Status:Active Comments:3. In [employer]. Father Status:Active Comments: d. Heart disease Mother Status:Active Comments: d. Breast Cancer. Sister (s) Status:Active Comments:2. moriah doyle has Parkinson's disease Son (s) Status:Active Comments:4. In [employer]. One son had Skin CA removed Brother (s) Status:Active Comments:3. In [employer]. Father Status:Active Comments: d. Heart disease Mother Status:Active Comments: d. Breast Cancer. Sister (s) Status:Active Comments:2. moriah claros sister has Parkinson's disease Son (s) Status:Active Comments:4. In [employer]. One son had Skin CA removed Brother (s) Status:Active Comments:3. In [employer]. Father Status:Active Comments: d. Heart disease Mother Status:Active Comments: d. Breast Cancer. Sister (s) Status:Active Comments:2. moriah claros sister has Parkinson's disease Son (s) Status:Active Comments:4. In [employer]. One son had Skin CA removed Brother (s) Status:Active Comments:3. In [employer]. Father Status:Active Comments: d. Heart disease Mother Status:Active Comments: d. Breast Cancer. Sister (s) Status:Active Comments:2. moriah doyle has Parkinson's disease Son (s) Status:Active Comments:4. In [employer]. One son had Skin CA removed Brother (s) Status:Active Comments:3. In [employer]. Father Status:Active Comments: d. Heart disease Mother Status:Active Comments: d. Breast Cancer. Sister (s) Status:Active Comments:2. moriah claros sister has Parkinson's disease Son (s) Status:Active Comments:4. In [employer]. One son had Skin CA removed Brother (s) Status:Active Comments:3. In [employer]. Father Status:Active Comments: d. Heart disease Mother Status:Active Comments: d. Breast Cancer. Sister (s) Status:Active Comments:2. moriah claros sister has Parkinson's disease Son (s) Status:Active Comments:4. In [employer]. One son had Skin CA removed Brother (s) Status:Active Comments:3. In [employer]. Father Status:Active Comments: d. Heart disease Mother Status:Active Comments: d. Breast Cancer. Sister (s) Status:Active Comments:2. moriah doyle has Parkinson's disease Son (s) Status:Active Comments:4. In [employer]. One son had Skin CA removed Brother (s) Status:Active Comments:3. In [employer]. Father Status:Active Comments: d. Heart disease Mother Status:Active Comments: d. Breast Cancer. Sister (s) Status:Active Comments:2. moriah claros sister has Parkinson's disease Son (s) Status:Active Comments:4. In [employer]. One son had Skin CA removed Brother (s) Status:Active Comments:3. In [employer]. Father Status:Active Comments: d. Heart disease Mother Status:Active Comments: d. Breast Cancer. Sister (s) Status:Active Comments:2. moriah doyle has Parkinson's disease Son (s) Status:Active Comments:4. In [employer]. One son had Skin CA removed Brother (s) Status:Active Comments:3. In [employer]. Father Status:Active Comments: d. Heart disease Mother Status:Active Comments: d. Breast Cancer. Sister (s) Status:Active Comments:2. moriah claros sister has Parkinson's disease Son (s) Status:Active Comments:4. In [employer]. One son had Skin CA removed Brother (s) Status:Active Comments:3. In [employer]. Father Status:Active Comments: d. Heart disease Mother Status:Active Comments: d. Breast Cancer. Sister (s) Status:Active Comments:2. moriah doyle has Parkinson's disease Son (s) Status:Active Comments:4. In [employer]. One son had Skin CA removed Brother (s) Status:Active Comments:3. In [employer]. Father Status:Active Comments: d. Heart disease Mother Status:Active Comments: d. Breast Cancer. Sister (s) Status:Active Comments:2. moriah doyle has Parkinson's disease Son (s) Status:Active Comments:4. In [employer]. One son had Skin CA removed Brother (s) Status:Active Comments:3. In [employer]. Father Status:Active Comments: d. Heart disease Mother Status:Active Comments: d. Breast Cancer. Sister (s) Status:Active Comments:2. moriah doyle has Parkinson's disease Son (s) Status:Active Comments:4. In [employer]. One son had Skin CA removed Brother (s) Status:Active Comments:3. In [employer]. Father Status:Active Comments: d. Heart disease Mother Status:Active Comments: d. Breast Cancer. Sister (s) Status:Active Comments:2. moriah doyle has Parkinson's disease Son (s) Status:Active Comments:4. In [employer]. One son had Skin CA removed Brother (s) Status:Active Comments:3. In [employer]. Father Status:Active Comments: d. Heart disease Mother Status:Active Comments: d. Breast Cancer. Sister (s) Status:Active Comments:2. moriah doyle has Parkinson's disease Son (s) Status:Active Comments:4. In [employer]. One son had Skin CA removed Brother (s) Status:Active Comments:3. In [employer]. Father Status:Active Comments: d. Heart disease Mother Status:Active Comments: d. Breast Cancer. Sister (s) Status:Active Comments:2. moriah doyle has Parkinson's disease Son (s) Status:Active Comments:4. In [employer]. One son had Skin CA removed Brother (s) Status:Active Comments:3. In [employer]. Father Status:Active Comments: d. Heart disease Mother Status:Active Comments: d. Breast Cancer. Sister (s) Status:Active Comments:2. moriah doyle has Parkinson's disease Son (s) Status:Active Comments:4. In [employer]. One son had Skin CA removed Brother (s) Status:Active Comments:3. In [employer]. Father Status:Active Comments: d. Heart disease Mother Status:Active Comments: d. Breast Cancer. Sister (s) Status:Active Comments:2. moriah doyle has Parkinson's disease Son (s) Status:Active Comments:4. In [employer]. One son had Skin CA removed Brother (s) Status:Active Comments:3. In [employer]. Father Status:Active Comments: d. Heart disease Mother Status:Active Comments: d. Breast Cancer. Sister (s) Status:Active Comments:2. moriah claros sister has Parkinson's disease Son (s) Status:Active Comments:4. In [employer]. One son had Skin CA removed Brother (s) Status:Active Comments:3. In [employer]. Father Status:Active Comments: d. Heart disease Mother Status:Active Comments: d. Breast Cancer. Sister (s) Status:Active Comments:2. moriah claros sister has Parkinson's disease Son (s) Status:Active Comments:4. In [employer]. One son had Skin CA removed Relationship Condition Age at Onset Recorded Date/T jitendra father Cardiac disease Unknown History of coronary artery bypass surgery Unknown Advance Directives Advance Directive Response Recorded Date/ Time Do you have a Healthcare Power of Rock Worker? No August 26, 2024 9:05am Chief Complaint and Reason for Visit Chief Complaint Admit Date CP (Maynor) July 07, 2024 10:41a m Abd Pain, Rectal Bleeding August 26 8:42am Reason for Visit Admit Date Abnormal ECG July 07, 2024 10:41a m Lower extremity edema July 07, 2024 10:4 1am Type 2 diabetes mellitus July 07, 2024 1 0:41am Hypertension July 07, 2024 10:41a m Additional Source Comments INFORMATION SOURCE (unrecogn ized section and content) DATE CREATED AUTHOR 08/20/2017 [facility] DATE CREATED AUTHOR AUTHOR'S ORGANIZ ATION 09/17/2018 [facility] ([place]) DATE CREATED AUTHOR AUTHOR'S ORGANIZ ATION 06/16/[address] [facility] DATE CREATED AUTHOR AUTHOR'S ORGANIZ ATION 03/03/2023 [facility] DATE CREATED AUTHOR AUTHOR'S ORGANIZ ATION 05/17/2024 [facility] DATE CREATED AUTHOR AUTHOR'S ORGANIZ ATION 08/20/[address] [facility] Care Teams (unrecognized sec tion and content) Team Status: Active Member Role Status Dates PAWEL Donovan Primary Care Provider Active Team Status: Inactive Member Role Status Dates Dr. Laron Mora MD Primary Care Provider Active Start: July 07, 2024 End: July 07, 2024 Dr. Laron Mora MD Referring Provider Active Start: July 07, 2024 End: July 07, 2024 Dr. Ramiro Dave MD Attending Provider Active Start: July 07, 2024 End: July 07, 2024 Team Status: Inactive Member Role Status Dates PAWEL Donovan Primary Care Provider Active Start: August 26, 2024 End: August 26, 2024 Dr. Scot Raygoza DO Emergency Provider Active Start : August 26, 2024 End: August 26, 2024 Goals (unrecognized section and content) Goals may be documented in a n alternate section FOR RECORDS PERTAINING TO PATIENTS WHO ARE OR HAVE BEEN ENROLLED IN A CHEMICAL DEPENDENCY/SUBSTANCEABUSE PROGRAM, SOME INFORMATION MAY BE OMITTED. This clinical summary was aggregated from multiple sources. Caution should be exercised in using it in the provision of clinical care. This summary normalizes information from multiple sources, and as a consequence, information in this document may materially change the coding, format and clinical context of patient data. In addition, data may be omitted in some cases. CLINICAL DECISIONS SHOULD BE BASED ON THE PRIMARY CLINICAL RECORDS. [facility] [employer] provides no warranty or guarantee of the accuracy or completeness of information in this document.
== END 2024-08-26 13:02 | disposition home or self-care (01) ==
PROVIDERS: Emergency Provider Emergency Medicine; PCP Nurse Practitioner Family; Visit Provider Emergency Medicine
DX: K57.33 Diverticulitis of large intestine without perforation or abscess with bleeding (principal); E11.40 Type 2 diabetes mellitus with diabetic neuropathy, unspecified; I10 Essential (primary) hypertension; Z99.3 Dependence on wheelchair; Z79.01 Long term (current) use of anticoagulants; Z79.84 Long term (current) use of oral hypoglycemic drugs; Z79.899 Other long term (current) drug therapy; Z86.711 Personal history of pulmonary embolism
CPT/HCPCS: 74177; 80048; 85014; 85018; 85025; 85610; 85730; 86850; 86900; 86901; 96365; 96367; 99285; Q9967; A4216

== ENCOUNTER → 2024-10-21 | Outpatient (CLI) | payer OTHER, SELFPAY ==
--- NOTE | 2024-10-21 17:05 | US_ITS ---
PROCEDURE: THYROID, 10/21/2024 REASON FOR EXAM: THYROID CYST TECHNIQUE: Grayscale and color Doppler imaging of the thyroid was performed. COMPARISON: None FINDINGS: Right lobe measures 3.3 x 1.8 x 2.2cm. Heterogeneous echotexture. Nodules as below: *Midgland, 7 x 7 x 4 mm, solid, hypoechoic, punctate echogenic focus, TI-RADS 5. Lower pole, 5 x 3 x 4 mm, colloid cyst, not suspicious. Left lobe measures 3.5 x 2.1 x 1.5 cm. Heterogeneous echotexture. nodules as below: *Upper pole, 4 x 4 x 4 mm, colloid cyst, not suspicious. Upper pole, 4 x 4 x 3 mm, colloid cyst, not suspicious. Isthmus measures 2 mm in thickness. US/Thyroid IMPRESSION: 1. Assessment is TI-RADS 5. No nodules currently meet criteria for FNA. Follow -up is recommended in 1 year as per the below. 2. Atrophic and heterogeneous gland. Correlate for thyroiditis. Management recommendations for TI-RADS 5 findings: FNA if = 1 cm; Follow if = 0 .5 cm annually until 5 years. Recommendations per ACR Thyroid Imaging, Reporting and Data System (TI-RADS): July kaplan Paper of the ACR TI-RADS Committee, 2017 ([email or web address]) Reading Location: [id number]
== END | disposition home or self-care (01) ==
LOC: US 16:59
PROVIDERS: PCP Nurse Practitioner Family
DX: E07.9 Disorder of thyroid, unspecified (principal)
CPT/HCPCS: 76536